=== PATIENT | male | born 1970 | race African-American/Black ===

== ENCOUNTER 2018-02-06 23:50 | Observation (INO) | payer MEDICARE, MEDICAID ==
[~2018-02-06] VITALS: Ht 172.7 cm; Wt 104.3 kg
[2018-02-07] MEDS ORDERED: HYDROcodone-ACET 10/325MG TAB PO ONE (02:15)
[2018-02-07] MEDS ORDERED: ONDANSETRON HCL 4 MG/2 ML VIAL IM ONE (02:30)
[2018-02-07] MEDS: ONDANSETRON HCL 4 MG/2 ML VIAL IV ONE ×2 (02:47→03:00)
[2018-02-07 03:04] LABS: Basophils # (auto) 0 uL; Basophils % (auto) 0.3 % (0.0-2.0); Eosinophils # (auto) 0.1 uL; Eosinophils % (auto) 0.6 % (0.0-7.0); Hemoglobin 7.3 g/dL (13.5-17.5); Lymphocytes # (auto) 1.3 uL; Platelet Count (auto) 166 10^3/uL (140-450)
[2018-02-07 03:05] LABS: Lymphocytes % (auto) 14.7 % (10.0-50.0); Mean Corpuscular Hemoglobin 32.2 pg (28.0-32.0); Mean Corpuscular Hgb Conc. 34.8 g/dL (32.0-36.0); Mean Corpuscular Volume 92.5 fL (80.0-100.0); Monocytes % (auto) 10.9 % (0.0-12.0); Neutrophils # (auto) 6.6 uL; Neutrophils % (auto) 73.5 % (37.0-80.0); Red Blood Cells 2.27 10^6/uL (4.5-5.90); Red Cell Distribution Width 14.8 % (11.8-14.3)
[2018-02-07 03:20] LABS: INR 1.26 (0.9-1.15); Partial Thromboplastin Time 40.9 sec (22.64-33.71); Prothrombin Time 13.8 sec (9.37-12.3)
[2018-02-07 03:24] LABS: BUN/Creatinine Ratio 2.2; Magnesium 1.6 mg/dL (1.6-2.6); Potassium 3.2 mmol/L (3.5-5.1)
[2018-02-07 03:29] LABS: Bilirubin, Total 0.3 mg/dL (0.2-1.0); Total Protein 6.6 g/dL (6.4-8.2)
[2018-02-07 05:53] VITALS: BP 103/40
[2018-02-07] MEDS ORDERED: metroNIDAZOLE 500 MG TAB PO ONE (06:00)
== END 2018-02-07 05:48 | disposition home or self-care (01) | DRG 391 ==
LOC: EDBD 23:50 → ER 02-07 00:03 → OVERFLOW 02-07 01:48 → ER 02-07 05:48
PROVIDERS: ADMIT Emergency Medicine; ATTEND Emergency Medicine
DX: R10.9 Unspecified abdominal pain (principal); N18.6 End stage renal disease; E11.22 Type 2 diabetes mellitus with diabetic chronic kidney disease; I12.0 Hypertensive chronic kidney disease with stage 5 chronic kidney disease or end stage renal disease; K52.9 Noninfective gastroenteritis and colitis, unspecified; G89.4 Chronic pain syndrome; E66.01 Morbid (severe) obesity due to excess calories; E78.5 Hyperlipidemia, unspecified; I73.9 Peripheral vascular disease, unspecified; Z87.11 Personal history of peptic ulcer disease; Z99.2 Dependence on renal dialysis
CPT/HCPCS: 36415; 71045; 74176; 80053; 82140; 82150; 83605; 83690; 83735; 83880; 84484; 85025; 85379; 85610; 85730; 93005; 96372; 99285; G0378; J2405

== ENCOUNTER 2021-09-04 11:45 | Inpatient (IN) | payer MEDICARE, MEDICAID ==
[~2021-09-04] VITALS: Ht 177.8 cm; Wt 78.2 kg
[2021-09-04] MEDS ORDERED: ACETAMINOPHEN 325 MG TAB PO ONE (13:30)
[2021-09-04 14:28] LABS: Basophils # (auto) 0 10 ^3/uL (0-0.2); Basophils % (auto) 0.2 % (0.0-2.0); Eosinophils # (auto) 0 10 ^3/uL (0-0.8); Eosinophils % (auto) 0.2 % (0.0-7.0); Hematocrit 35.1 % (41.0-53.0); Hemoglobin 11.3 g/dL (13.5-17.5); Lymphocytes # (auto) 0.6 10 ^3/uL (0.4-5.4); Lymphocytes % (auto) 3.3 % (10.0-50.0); Mean Corpuscular Hemoglobin 28.9 pg (28.0-32.0); Mean Corpuscular Hgb Conc. 32.3 g/dL (32.0-36.0); Mean Corpuscular Volume 89.4 fL (80.0-100.0); Monocytes # (auto) 1.3 10 ^3/uL (0-1.3); Neutrophils # (auto) 16.5 10 ^3/uL (1.6-8.6); Neutrophils % (auto) 89.3 % (37.0-80.0); Red Blood Cells 3.92 10^6/uL (4.5-5.90); Red Cell Distribution Width 15.3 % (11.8-14.3); White Blood Cell 18.5 10^3/uL (4.4-10.8)
[2021-09-04 14:51] LABS: Chloride 90 mmol/L (98-107); Potassium 4.8 mmol/L (3.5-5.1); Sodium 125 mmol/L (136-145)
[2021-09-04 15:05] LABS: Alanine Aminotransferase 8 U/L (16-61); Alkaline Phosphatase 87 U/L (45-117); Anion Gap 15 (5-15); Aspartate Aminotransferase 11 U/L (15-37); BUN/Creatinine Ratio 3.9; Bilirubin, Total 0.4 mg/dL (0.2-1.0); Blood Urea Nitrogen 71 mg/dL (7-18); Carbon Dioxide 20 mmol/L (21-32); GFR African American 4 mL/min; GFR Non-African American 3 mL/min; Glucose 214 mg/dL (74-106); Lipase 17 U/L (73-393); Magnesium 2.3 mg/dL (1.6-2.6); Total Protein 7.4 g/dL (6.4-8.2)
[2021-09-04 15:15] LABS: Calcium 5.3 mg/dL (8.5-10.1)
[2021-09-04] MEDS ORDERED: NITROGLYCERIN 0.4 MG SL TAB SL PRN (16:45)
[2021-09-04] MEDS ORDERED: VANCOMYCIN PER PHARMACY 0 MG IV SCH (16:45)
[2021-09-04] MEDS ORDERED: ACETAMINOPHEN 500 MG TAB PO PRN (16:45)
[2021-09-04] MEDS ORDERED: DOXYCYCLINE 100 MG TAB/CAP PO ONE (16:45)
[2021-09-04] MEDS ORDERED: cefTRIAXone 1GM/50ML D5W 50 ML IV ONE (16:45)
[2021-09-04] MEDS ORDERED: MORPHINE SULFATE INJECTION 2 MG/ML SYRG IV PRN ×2 (16:45)
[2021-09-04] MEDS ORDERED: VANCOMYCIN 1GM/250ML 250 ML IV ONE (17:00)
[2021-09-04] MEDS ORDERED: DEXTROSE (50%) 50ML SYRG IV PRN (17:15)
[2021-09-04] MEDS: CALCIUM ACETATE 667 MG CAP PO SCH (18:00)
[2021-09-04] MEDS: HYDROcodone-ACET 5/325MG TAB PO PRN (19:11)
[2021-09-04] MEDS: InsuLIN REG 1unit/0.01ml Soln (100units/ml) SC SCH (20:57)
[2021-09-04] MEDS: metroNIDAZOLE 500MG/100ML 100 ML IV SCH (21:00)
[2021-09-04] MEDS: ACCU-CHEK COMFORT CURVE STRIP VI SCH (21:01)
[2021-09-04 22:17] VITALS: BP 118/66
[2021-09-05] MEDS: HYDROcodone-ACET 5/325MG TAB PO PRN ×2 (01:40→12:45)
[2021-09-05] MEDS: ONDANSETRON HCL 4 MG/2 ML VIAL IV PRN ×2 (03:11→12:45)
[2021-09-05 05:00] VITALS: BP 109/58
[2021-09-05] MEDS: InsuLIN REG 1unit/0.01ml Soln (100units/ml) SC SCH ×4 (05:54→22:00)
[2021-09-05] MEDS: metroNIDAZOLE 500MG/100ML 100 ML IV SCH ×3 (05:54→22:14)
[2021-09-05] MEDS: ACCU-CHEK COMFORT CURVE STRIP VI SCH ×4 (05:54→22:14)
[2021-09-05 09:25] VITALS: BP 122/60
[2021-09-05] MEDS: cefTRIAXone 1GM/50ML D5W 50 ML IV SCH (12:05)
[2021-09-05] MEDS: CALCIUM ACETATE 667 MG CAP PO SCH ×3 (12:05→17:33)
[2021-09-05] MEDS ORDERED: VANCOMYCIN 1GM/250ML 250 ML IV ONE (12:15)
[2021-09-05] MEDS ORDERED: CALCIUM GLUC 1,000mg/50ml-NS 50 ML IV ONE ×2 (12:45→13:15)
[2021-09-05 12:59] VITALS: BP 128/56
[2021-09-05] MEDS ORDERED: PANTOPRAZOLE 40 MG/10 ML VIAL INJ IV ONE (14:45)
[2021-09-05 15:08] LABS: Hemoglobin 10.4 g/dL (13.5-17.5); White Blood Cell 17.8 10^3/uL (4.4-10.8)
[2021-09-05 15:10] LABS: Basophils # (auto) 0.2 10 ^3/uL (0-0.2); Eosinophils # (auto) 0.2 10 ^3/uL (0-0.8); Hematocrit 30.9 % (41.0-53.0); Lymphocytes # (auto) 0.6 10 ^3/uL (0.4-5.4); Lymphocytes % (auto) 3.6 % (10.0-50.0); Mean Corpuscular Hemoglobin 29.8 pg (28.0-32.0); Mean Corpuscular Hgb Conc. 33.5 g/dL (32.0-36.0); Mean Corpuscular Volume 89.2 fL (80.0-100.0); Monocytes # (auto) 0.9 10 ^3/uL (0-1.3); Neutrophils # (auto) 15.9 10 ^3/uL (1.6-8.6); Neutrophils % (auto) 89.4 % (37.0-80.0); Red Blood Cells 3.47 10^6/uL (4.5-5.90); Red Cell Distribution Width 15.5 % (11.8-14.3)
[2021-09-05 15:42] LABS: Potassium 4.8 mmol/L (3.5-5.1)
[2021-09-05 15:45] LABS: BUN/Creatinine Ratio 3.8
[2021-09-05 16:01] LABS: Calcium 5.3 mg/dL (8.5-10.1)
[2021-09-05] MEDS: SUCRALFATE 1 GM/10 ML ORAL SUSP PO SCH ×3 (16:04→22:14)
[2021-09-05 17:00] VITALS: BP 152/74
[2021-09-05 22:00] VITALS: BP 139/65
[2021-09-05] MEDS: PANTOPRAZOLE 40 MG/10 ML VIAL INJ IV SCH (22:14)
[2021-09-06] MEDS: HYDROcodone-ACET 5/325MG TAB PO PRN (01:41)
[2021-09-06 05:00] VITALS: BP 141/71
[2021-09-06] MEDS: SUCRALFATE 1 GM/10 ML ORAL SUSP PO SCH ×4 (06:10→22:37)
[2021-09-06] MEDS: metroNIDAZOLE 500MG/100ML 100 ML IV SCH ×3 (06:10→22:37)
[2021-09-06] MEDS: InsuLIN REG 1unit/0.01ml Soln (100units/ml) SC SCH ×4 (06:11→22:38)
[2021-09-06] MEDS: ACCU-CHEK COMFORT CURVE STRIP VI SCH ×4 (06:11→22:37)
[2021-09-06] MEDS ORDERED: SODIUM CHL 0.9% 1000 ML BAG XX ONE (07:00)
[2021-09-06 07:05] LABS: Basophils # (auto) 0 10 ^3/uL (0-0.2); Basophils % (auto) 0.3 % (0.0-2.0); Eosinophils # (auto) 0.2 10 ^3/uL (0-0.8); Eosinophils % (auto) 1.1 % (0.0-7.0); Hematocrit 27.8 % (41.0-53.0); Hemoglobin 9.3 g/dL (13.5-17.5); Lymphocytes # (auto) 0.9 10 ^3/uL (0.4-5.4); Lymphocytes % (auto) 5.6 % (10.0-50.0); Mean Corpuscular Hgb Conc. 33.6 g/dL (32.0-36.0); Mean Corpuscular Volume 89.2 fL (80.0-100.0); Monocytes # (auto) 1.1 10 ^3/uL (0-1.3); Neutrophils # (auto) 13.8 10 ^3/uL (1.6-8.6); Red Blood Cells 3.12 10^6/uL (4.5-5.90); Red Cell Distribution Width 15.2 % (11.8-14.3)
[2021-09-06 07:27] LABS: Magnesium 2.3 mg/dL (1.6-2.6); Potassium 4.7 mmol/L (3.5-5.1)
[2021-09-06 07:34] LABS: Albumin 1.6 g/dL (3.4-5.0); Bilirubin, Total 0.4 mg/dL (0.2-1.0); Total Protein 6.7 g/dL (6.4-8.2)
[2021-09-06 08:32] LABS: Calcium 5.5 mg/dL (8.5-10.1)
[2021-09-06 09:00] VITALS: BP 140/59
[2021-09-06] MEDS ORDERED: PANTOPRAZOLE 40 MG/10 ML VIAL INJ IV SCH (10:00)
[2021-09-06] MEDS ORDERED: CALCIUM GLUC 1,000mg/50ml-NS 50 ML IV ONE (10:00)
[2021-09-06] MEDS: cefTRIAXone 1GM/50ML D5W 50 ML IV SCH (10:16)
[2021-09-06] MEDS: PANTOPRAZOLE 40 MG/10 ML VIAL INJ IV SCH ×2 (10:16→22:37)
[2021-09-06] MEDS: CALCIUM ACETATE 667 MG CAP PO SCH ×3 (10:16→20:05)
[2021-09-06] MEDS: CALCIUM GLUC 1,000mg/50ml-NS 50 ML IV SCH ×2 (11:36→13:29)
[2021-09-06] MEDS: PROMETHAZINE HCL 25 MG/ML 1ML IV PRN (11:39)
[2021-09-06 13:00] VITALS: BP 166/85
[2021-09-06] MEDS ORDERED: GABA-339 PO (15:12)
[2021-09-06] MEDS ORDERED: HYDR-4798 PO (15:12)
[2021-09-06] MEDS ORDERED: LORazepam 2MG/ML-1ML VIAL IV PRN (16:30)
[2021-09-06 17:00] VITALS: BP 147/79
[2021-09-06 22:00] VITALS: BP 127/53
[2021-09-07] MEDS: HYDROcodone-ACET 10/325MG TAB PO PRN ×4 (04:48→23:01)
[2021-09-07 05:00] VITALS: BP 146/73
[2021-09-07] MEDS: metroNIDAZOLE 500MG/100ML 100 ML IV SCH (06:00)
[2021-09-07] MEDS: ACCU-CHEK COMFORT CURVE STRIP VI SCH ×4 (07:00→22:59)
[2021-09-07] MEDS: SUCRALFATE 1 GM/10 ML ORAL SUSP PO SCH ×4 (07:00→22:59)
[2021-09-07] MEDS: InsuLIN REG 1unit/0.01ml Soln (100units/ml) SC SCH ×4 (07:00→23:01)
[2021-09-07 07:12] LABS: Basophils # (auto) 0 10 ^3/uL (0-0.2); Basophils % (auto) 0.2 % (0.0-2.0); Eosinophils # (auto) 0.1 10 ^3/uL (0-0.8); Eosinophils % (auto) 0.9 % (0.0-7.0); Hematocrit 25.8 % (41.0-53.0); Hemoglobin 8.8 g/dL (13.5-17.5); Lymphocytes # (auto) 0.8 10 ^3/uL (0.4-5.4); Lymphocytes % (auto) 6.5 % (10.0-50.0); Mean Corpuscular Hemoglobin 30.6 pg (28.0-32.0); Mean Corpuscular Hgb Conc. 34.1 g/dL (32.0-36.0); Mean Corpuscular Volume 89.6 fL (80.0-100.0); Monocytes # (auto) 1.1 10 ^3/uL (0-1.3); Monocytes % (auto) 8.5 % (0.0-12.0); Neutrophils # (auto) 10.6 10 ^3/uL (1.6-8.6); Neutrophils % (auto) 83.9 % (37.0-80.0); Red Blood Cells 2.88 10^6/uL (4.5-5.90); Red Cell Distribution Width 15.2 % (11.8-14.3); White Blood Cell 12.6 10^3/uL (4.4-10.8)
[2021-09-07 07:26] LABS: Potassium 3.5 mmol/L (3.5-5.1)
[2021-09-07 07:44] LABS: BUN/Creatinine Ratio 3.3
[2021-09-07] MEDS: CALCIUM ACETATE 667 MG CAP PO SCH ×3 (08:22→17:25)
[2021-09-07 09:00] VITALS: BP 105/44
[2021-09-07] MEDS ORDERED: CALCIUM GLUC 1,000mg/50ml-NS 50 ML IV ONE (09:30)
[2021-09-07] MEDS: cefTRIAXone 1GM/50ML D5W 50 ML IV SCH (09:36)
[2021-09-07] MEDS: PANTOPRAZOLE 40 MG/10 ML VIAL INJ IV SCH ×2 (09:36→22:58)
[2021-09-07 12:46] VITALS: BP 160/87
[2021-09-07] MEDS ORDERED: ASPirin 81 mg TAB PO SCH (13:30)
[2021-09-07] MEDS ORDERED: VANCOMYCIN 1GM/250ML 250 ML IV ONE (14:00)
[2021-09-07 16:58] VITALS: BP 148/74
[2021-09-07] MEDS: ASPirin 81 mg TAB PO SCH (18:55)
[2021-09-07 22:00] VITALS: BP 150/76
[2021-09-07] MEDS: ATORVASTATIN 20 MG TAB PO SCH (22:59)
[2021-09-08 05:00] VITALS: BP 114/62
[2021-09-08 05:22] LABS: Basophils # (auto) 0 10 ^3/uL (0-0.2); Basophils % (auto) 0.4 % (0.0-2.0); Eosinophils # (auto) 0.2 10 ^3/uL (0-0.8); Eosinophils % (auto) 1.9 % (0.0-7.0); Hematocrit 27.3 % (41.0-53.0); Lymphocytes # (auto) 1.1 10 ^3/uL (0.4-5.4); Lymphocytes % (auto) 9.9 % (10.0-50.0); Mean Corpuscular Hemoglobin 29.4 pg (28.0-32.0); Mean Corpuscular Hgb Conc. 32.8 g/dL (32.0-36.0); Mean Corpuscular Volume 89.6 fL (80.0-100.0); Monocytes # (auto) 0.8 10 ^3/uL (0-1.3); Neutrophils % (auto) 80.8 % (37.0-80.0); Red Blood Cells 3.04 10^6/uL (4.5-5.90); Red Cell Distribution Width 15.5 % (11.8-14.3); White Blood Cell 11.1 10^3/uL (4.4-10.8)
[2021-09-08 06:00] LABS: Potassium 3.8 mmol/L (3.5-5.1)
[2021-09-08 06:15] LABS: BUN/Creatinine Ratio 3.4; Magnesium 2.5 mg/dL (1.6-2.6)
[2021-09-08 06:28] LABS: Calcium 5.8 mg/dL (8.5-10.1)
[2021-09-08] MEDS: ACCU-CHEK COMFORT CURVE STRIP VI SCH ×4 (06:57→22:28)
[2021-09-08] MEDS: SUCRALFATE 1 GM/10 ML ORAL SUSP PO SCH ×4 (06:57→22:26)
[2021-09-08] MEDS: HYDROcodone-ACET 10/325MG TAB PO PRN ×2 (06:59→17:19)
[2021-09-08] MEDS: InsuLIN REG 1unit/0.01ml Soln (100units/ml) SC SCH ×4 (07:11→22:29)
[2021-09-08 08:52] VITALS: BP 111/62
[2021-09-08] MEDS ORDERED: CALCIUM GLUC 1,000mg/50ml-NS 50 ML IV ONE ×2 (09:00)
[2021-09-08] MEDS ORDERED: CALCIUM GLUC 1,000mg/50ml-NS 100 ML IV ONE (09:00)
[2021-09-08] MEDS: CALCIUM ACETATE 667 MG CAP PO SCH ×3 (09:36→17:18)
[2021-09-08] MEDS: ASPirin 81 mg TAB PO SCH (10:19)
[2021-09-08] MEDS: CALCITRIOL 0.25 MCG CAP PO SCH ×2 (10:19→22:27)
[2021-09-08] MEDS: PANTOPRAZOLE 40 MG/10 ML VIAL INJ IV SCH ×2 (10:19→22:27)
[2021-09-08] MEDS ORDERED: LINEZOLID 600MG/300ML 300 ML IV SCH (11:00)
[2021-09-08 13:00] VITALS: BP 131/89
[2021-09-08 17:00] VITALS: BP 168/103
[2021-09-08] MEDS: LABETALOL HCL 5 MG/ML 4ML SYRINGE IV PRN (17:19)
[2021-09-08] MEDS: CALCIUM GLUC 1,000mg/50ml-NS 50 ML IV SCH ×3 (18:18→19:48)
[2021-09-08 19:10] VITALS: BP 152/77
[2021-09-08 22:00] VITALS: BP 133/65
[2021-09-08] MEDS: ATORVASTATIN 20 MG TAB PO SCH (22:27)
[2021-09-08] MEDS: HYDROmorphone HCL 2 MG/ML VL IV PRN (22:28)
[2021-09-08] MEDS: LINEZOLID 600MG/300ML 300 ML IV SCH (22:29)
[2021-09-09 05:00] VITALS: BP 149/63
[2021-09-09] MEDS: InsuLIN REG 1unit/0.01ml Soln (100units/ml) SC SCH ×4 (07:00→21:57)
[2021-09-09] MEDS: SUCRALFATE 1 GM/10 ML ORAL SUSP PO SCH ×4 (07:00→21:16)
[2021-09-09] MEDS ORDERED: SODIUM CHL 0.9% 1000 ML BAG XX ONE (07:00)
[2021-09-09] MEDS: ACCU-CHEK COMFORT CURVE STRIP VI SCH ×4 (07:04→21:59)
[2021-09-09 07:59] LABS: Basophils # (auto) 0.1 10 ^3/uL (0-0.2); Basophils % (auto) 0.7 % (0.0-2.0); Eosinophils # (auto) 0.1 10 ^3/uL (0-0.8); Eosinophils % (auto) 1.3 % (0.0-7.0); Hematocrit 28.6 % (41.0-53.0); Hemoglobin 9.5 g/dL (13.5-17.5); Lymphocytes # (auto) 1.1 10 ^3/uL (0.4-5.4); Lymphocytes % (auto) 11.3 % (10.0-50.0); Mean Corpuscular Hgb Conc. 33.4 g/dL (32.0-36.0); Mean Corpuscular Volume 89.9 fL (80.0-100.0); Monocytes # (auto) 0.8 10 ^3/uL (0-1.3); Monocytes % (auto) 8.2 % (0.0-12.0); Neutrophils # (auto) 7.9 10 ^3/uL (1.6-8.6); Neutrophils % (auto) 78.5 % (37.0-80.0); Red Blood Cells 3.18 10^6/uL (4.5-5.90); Red Cell Distribution Width 15.7 % (11.8-14.3); White Blood Cell 10.1 10^3/uL (4.4-10.8)
[2021-09-09 08:19] LABS: Calcium 6.6 mg/dL (8.5-10.1); Potassium 3.7 mmol/L (3.5-5.1)
[2021-09-09 08:22] LABS: BUN/Creatinine Ratio 3.6
[2021-09-09 09:00] VITALS: BP 157/86
[2021-09-09 10:26] LABS: INR 1.37 (0.9-1.15); Partial Thromboplastin Time 46.4 sec (23.6-33.0)
[2021-09-09] MEDS: HYDROmorphone HCL 2 MG/ML VL IV PRN ×2 (10:53→18:39)
[2021-09-09] MEDS: PROMETHAZINE HCL 25 MG/ML 1ML IV PRN ×2 (10:53→18:39)
[2021-09-09] MEDS: CALCITRIOL 0.25 MCG CAP PO SCH ×2 (11:17→21:16)
[2021-09-09] MEDS: CALCIUM ACETATE 667 MG CAP PO SCH ×3 (11:17→18:39)
[2021-09-09] MEDS: PANTOPRAZOLE 40 MG/10 ML VIAL INJ IV SCH ×2 (11:17→21:16)
[2021-09-09] MEDS: LINEZOLID 600MG/300ML 300 ML IV SCH ×2 (11:17→21:17)
[2021-09-09] MEDS: ASPirin 81 mg TAB PO SCH (11:19)
[2021-09-09 13:00] VITALS: BP 161/88
[2021-09-09 16:51] VITALS: BP 114/68
[2021-09-09] MEDS ORDERED: EPOETIN ALFA-EPBX 10,000 UNIT/1ML VIAL SC ONE (21:00)
[2021-09-09] MEDS: ATORVASTATIN 20 MG TAB PO SCH (21:16)
[2021-09-09] MEDS: HYDROcodone-ACET 10/325MG TAB PO PRN (21:16)
[2021-09-09 22:00] VITALS: BP 119/74
[2021-09-10] VITALS (7 sets, daily range): BP systolic 132–162; BP diastolic 68–98
[2021-09-10] MEDS: PROMETHAZINE HCL 25 MG/ML 1ML IV PRN ×5 (00:29→22:30)
[2021-09-10] MEDS: HYDROmorphone HCL 2 MG/ML VL IV PRN ×4 (00:29→21:12)
[2021-09-10] MEDS: SUCRALFATE 1 GM/10 ML ORAL SUSP PO SCH ×4 (06:01→21:12)
[2021-09-10] MEDS: InsuLIN REG 1unit/0.01ml Soln (100units/ml) SC SCH ×4 (06:02→22:00)
[2021-09-10] MEDS: ACCU-CHEK COMFORT CURVE STRIP VI SCH ×4 (06:02→22:29)
[2021-09-10] MEDS: LABETALOL HCL 5 MG/ML 4ML SYRINGE IV PRN ×2 (06:24→22:20)
[2021-09-10 07:01] LABS: BUN/Creatinine Ratio 3.2; Potassium 4.3 mmol/L (3.5-5.1)
[2021-09-10 07:02] LABS: Basophils # (auto) 0 10 ^3/uL (0-0.2); Basophils % (auto) 0.6 % (0.0-2.0); Eosinophils # (auto) 0.2 10 ^3/uL (0-0.8); Hematocrit 29.1 % (41.0-53.0); Hemoglobin 9.7 g/dL (13.5-17.5); Lymphocytes # (auto) 1.1 10 ^3/uL (0.4-5.4); Lymphocytes % (auto) 14.1 % (10.0-50.0); Mean Corpuscular Hemoglobin 30.4 pg (28.0-32.0); Mean Corpuscular Hgb Conc. 33.4 g/dL (32.0-36.0); Mean Corpuscular Volume 91.1 fL (80.0-100.0); Monocytes # (auto) 0.7 10 ^3/uL (0-1.3); Monocytes % (auto) 8.7 % (0.0-12.0); Neutrophils # (auto) 5.8 10 ^3/uL (1.6-8.6); Neutrophils % (auto) 74.6 % (37.0-80.0); Nucleated Red Blood Cells % 0.1 %; Red Blood Cells 3.19 10^6/uL (4.5-5.90); Red Cell Distribution Width 15.8 % (11.8-14.3); White Blood Cell 7.8 10^3/uL (4.4-10.8)
[2021-09-10] MEDS: CALCIUM ACETATE 667 MG CAP PO SCH ×3 (08:00→18:00)
[2021-09-10] MEDS: LINEZOLID 600MG/300ML 300 ML IV SCH (10:39)
[2021-09-10] MEDS: PANTOPRAZOLE 40 MG/10 ML VIAL INJ IV SCH ×2 (10:39→21:12)
[2021-09-10] MEDS: HYDROcodone-ACET 10/325MG TAB PO PRN (10:40)
[2021-09-10] MEDS: ASPirin 81 mg TAB PO SCH (10:40)
[2021-09-10] MEDS: CALCITRIOL 0.25 MCG CAP PO SCH ×2 (11:22→21:13)
[2021-09-10] MEDS ORDERED: VANCOMYCIN PER PHARMACY 0 MG IV SCH (12:30)
[2021-09-10] MEDS ORDERED: DAPTOmycin 500 MG in SODIUM CHL 0.9% 50 ML IV SCH (15:00)
[2021-09-10] MEDS: ATORVASTATIN 20 MG TAB PO SCH (21:12)
[2021-09-11] MEDS: HYDROmorphone HCL 2 MG/ML VL IV PRN ×3 (02:29→12:02)
[2021-09-11] MEDS: PROMETHAZINE HCL 25 MG/ML 1ML IV PRN ×2 (02:29→07:53)
[2021-09-11] MEDS: SUCRALFATE 1 GM/10 ML ORAL SUSP PO SCH ×3 (05:38→17:00)
[2021-09-11] MEDS: InsuLIN REG 1unit/0.01ml Soln (100units/ml) SC SCH ×3 (06:24→17:30)
[2021-09-11] MEDS: ACCU-CHEK COMFORT CURVE STRIP VI SCH ×3 (06:30→17:30)
[2021-09-11] MEDS: CALCIUM ACETATE 667 MG CAP PO SCH ×3 (07:55→17:31)
[2021-09-11 09:00] VITALS: BP 168/90
[2021-09-11] MEDS: PANTOPRAZOLE 40 MG/10 ML VIAL INJ IV SCH (09:57)
[2021-09-11] MEDS: CALCITRIOL 0.25 MCG CAP PO SCH (09:58)
[2021-09-11] MEDS: ASPirin 81 mg TAB PO SCH (09:58)
[2021-09-11] MEDS ORDERED: PANT40TA2 PO (10:24)
[2021-09-11] MEDS ORDERED: ATOR10TA PO (10:24)
[2021-09-11] MEDS ORDERED: ASPI-378 PO (10:24)
[2021-09-11] MEDS ORDERED: SUCR1TAB22 PO (10:28)
[2021-09-11] MEDS ORDERED: OMEP-260 PO (10:41)
[2021-09-11] MEDS ORDERED: CALC667C PO (10:41)
[2021-09-11] MEDS ORDERED: AMLO-496 PO (10:41)
[2021-09-11] MEDS ORDERED: ATOR10TA52 PO (10:41)
[2021-09-11 13:00] VITALS: BP 153/86
[2021-09-11] MEDS ORDERED: SODIUM CHL 0.9% 1000 ML BAG XX ONE (16:00)
[2021-09-11 17:00] VITALS: BP 161/67
[2021-09-11] MEDS ORDERED: EPOETIN ALFA-EPBX 10,000 UNIT/1ML VIAL SC ONE (21:00)
[2021-09-11] MEDS ORDERED: SODIUM CHLOR 0.9% PF (SALINE LOCK) 10ML VIAL/SYR IV SCH (22:00)
== END 2021-09-11 19:23 | disposition home health service (06) | DRG 871 ==
LOC: ER 11:45 → EDBD 11:45 → TELE 16:40 → TELE-CENTR 19:59
PROVIDERS: ADMIT Nurse Practitioner Acute Care; ATTEND Internal Medicine
PROC: 05HC33Z Insertion of Infusion Device into Left Basilic Vein, Percutaneous Approach (ICD-10-PCS; 2021-09-04)
PROC: B54NZZA Ultrasonography of Left Upper Extremity Veins, Guidance (ICD-10-PCS; 2021-09-04)
PROC: 5A1D70Z Performance of Urinary Filtration, Intermittent, Less than 6 Hours Per Day (ICD-10-PCS; principal; 2021-09-06)
PROC: 5A1D70Z Performance of Urinary Filtration, Intermittent, Less than 6 Hours Per Day (ICD-10-PCS; 2021-09-09)
PROC: 5A1D70Z Performance of Urinary Filtration, Intermittent, Less than 6 Hours Per Day (ICD-10-PCS; 2021-09-11)
PROC: 05HC33Z Insertion of Infusion Device into Left Basilic Vein, Percutaneous Approach (ICD-10-PCS; 2021-09-11)
PROC: B54NZZA Ultrasonography of Left Upper Extremity Veins, Guidance (ICD-10-PCS; 2021-09-11)
DX: A41.02 Sepsis due to Methicillin resistant Staphylococcus aureus (principal); N18.6 End stage renal disease; E87.1 Hypo-osmolality and hyponatremia; I13.2 Hypertensive heart and chronic kidney disease with heart failure and with stage 5 chronic kidney disease, or end stage renal disease; I50.30 Unspecified diastolic (congestive) heart failure; M86.172 Other acute osteomyelitis, left ankle and foot; E83.51 Hypocalcemia; R55 Syncope and collapse; K62.89 Other specified diseases of anus and rectum; E11.621 Type 2 diabetes mellitus with foot ulcer; D63.1 Anemia in chronic kidney disease; E11.22 Type 2 diabetes mellitus with diabetic chronic kidney disease; E11.40 Type 2 diabetes mellitus with diabetic neuropathy, unspecified; E11.51 Type 2 diabetes mellitus with diabetic peripheral angiopathy without gangrene; E86.0 Dehydration; E83.39 Other disorders of phosphorus metabolism; E11.69 Type 2 diabetes mellitus with other specified complication; E78.5 Hyperlipidemia, unspecified; G89.29 Other chronic pain; H54.8 Legal blindness, as defined in USA; L97.529 Non-pressure chronic ulcer of other part of left foot with unspecified severity; Z53.20 Procedure and treatment not carried out because of patient's decision for unspecified reasons; R19.7 Diarrhea, unspecified; Z20.822 Contact with and (suspected) exposure to COVID-19; Z79.4 Long term (current) use of insulin; Z82.49 Family history of ischemic heart disease and other diseases of the circulatory system; Z83.3 Family history of diabetes mellitus; Z86.73 Personal history of transient ischemic attack (TIA), and cerebral infarction without residual deficits; Z87.11 Personal history of peptic ulcer disease; Z91.19 Patient's noncompliance with other medical treatment and regimen; Z99.2 Dependence on renal dialysis; Z88.0 Allergy status to penicillin; Z88.8 Allergy status to other drugs, medicaments and biological substances
CPT/HCPCS: 36415; 36569; 70450; 70551; 71045; 72125; 73700; 73718; 74176; 80048; 80053; 80061; 80202; 82010; 82306; 82962; 83036; 83605; 83690; 83735; 83880; 84100; 84443; 84484; 85025; 85610; 85730; 87040; 87045; 87077; 87081; 87147; 87186; 87340; 87426; 87427; 87493; 90935; 93005; 93306; 93886; 93925; 95819; 96365; 96367; 97110; 97163; 97530; C9113; G0378; J0696; J1815; J2405; J3490

== ENCOUNTER 2022-03-28 14:35 | Inpatient (IN) | payer MEDICARE, MEDICAID ==
[~2022-03-28] VITALS: Ht 177.8 cm; Wt 89.5 kg
[~2022-03-28 14:35] MED LIST: AMLO-496 PO; ASPI-378 PO; ATOR10TA PO; CALC667C PO; GABA-339 PO; HYDR-4798 PO; PANT40TA2 PO; SUCR1TAB22 PO
[2022-03-28 16:09] LABS: Basophils # (auto) 0 10 ^3/uL (0-0.2); Eosinophils # (auto) 0.1 10 ^3/uL (0-0.8); Eosinophils % (auto) 1.1 % (0.0-7.0); Hematocrit 31.1 % (41.0-53.0); Hemoglobin 10.2 g/dL (13.5-17.5); Lymphocytes # (auto) 0.6 10 ^3/uL (0.4-5.4); Lymphocytes % (auto) 12.9 % (10.0-50.0); Mean Corpuscular Hemoglobin 30.2 pg (28.0-32.0); Mean Corpuscular Hgb Conc. 32.8 g/dL (32.0-36.0); Mean Corpuscular Volume 92.1 fL (80.0-100.0); Monocytes # (auto) 0.5 10 ^3/uL (0-1.3); Monocytes % (auto) 10.4 % (0.0-12.0); Neutrophils # (auto) 3.6 10 ^3/uL (1.6-8.6); Neutrophils % (auto) 74.6 % (37.0-80.0); Nucleated Red Blood Cells % 0.3 %; Red Blood Cells 3.38 10^6/uL (4.5-5.90); Red Cell Distribution Width 18.4 % (11.8-14.3); White Blood Cell 4.8 10^3/uL (4.4-10.8)
[2022-03-28 16:19] LABS: Calcium 6.3 mg/dL (8.5-10.1); Magnesium 2.5 mg/dL (1.6-2.6)
[2022-03-28 16:20] LABS: BUN/Creatinine Ratio 5.2
[2022-03-28 16:22] LABS: Bilirubin, Total 0.5 mg/dL (0.2-1.0); Total Protein 8.3 g/dL (6.4-8.2)
[2022-03-28 16:27] LABS: Potassium 7.6 mmol/L (3.5-5.1)
[2022-03-28] MEDS ORDERED: DEXTROSE (50%) 50ML SYRG IV ONE ×4 (16:45→22:15)
[2022-03-28] MEDS ORDERED: InsuLIN REG 1unit/0.01ml Soln (100units/ml) IV ONE (16:45)
[2022-03-28] MEDS ORDERED: SODIUM ZIRCONIUM CYCL 10 GM PAK PO ONE (16:45)
[2022-03-28] MEDS ORDERED: SODIUM BICARBONATE 8.4 % INJ 50ML VIAL IV ONE (16:45)
[2022-03-28] MEDS ORDERED: CALCIUM GLUC 1,000mg/50ml-NS 50 ML IV ONE (16:45)
[2022-03-28 16:52] LABS: INR 1.4 (0.9-1.15); Partial Thromboplastin Time 33.6 sec (23.6-33.0)
[2022-03-28 18:17] LABS: Cholesterol 65 mg/dL (< 200)
[2022-03-28 18:20] LABS: HDL Cholesterol 32 mg/dL (40-59); LDL Cholesterol 24 mg/dL (< 100); Triglycerides 71 mg/dL (< 150)
[2022-03-28] MEDS ORDERED: DEXTROSE 50% SYRINGE 50 ML IV ONE ×2 (18:47→22:20)
[2022-03-28] MEDS ORDERED: ACCU-CHEK COMFORT CURVE STRIP VI ONE ×2 (19:00→19:15)
[2022-03-28 20:27] LABS: BUN/Creatinine Ratio 5.2; Calcium 6.5 mg/dL (8.5-10.1)
[2022-03-28 20:35] LABS: Potassium 6.4 mmol/L (3.5-5.1)
[2022-03-28] MEDS ORDERED: SODIUM CHL 0.9% 1000 ML BAG XX ONE (20:45)
[2022-03-28] MEDS ORDERED: EPOETIN ALFA-EPBX 10,000 UNIT/1ML VIAL SC ONE (21:00)
[2022-03-28] MEDS: SODIUM ZIRCONIUM CYCL 10 GM PAK PO SCH (22:00)
[2022-03-28] MEDS ORDERED: DEXTROSE 10% 1,000 ML IV ONE (22:15)
[2022-03-29] VITALS (7 sets, daily range): BP systolic 111–153; BP diastolic 42–96
[2022-03-29] MEDS ORDERED: DEXTROSE (50%) 50ML SYRG IV PRN (02:00)
[2022-03-29] MEDS ORDERED: FENO145T27 PO (03:04)
[2022-03-29] MEDS ORDERED: MELA3TAB27 PO (03:04)
[2022-03-29] MEDS ORDERED: ALBU108A5 IN (03:04)
[2022-03-29] MEDS ORDERED: OMEP20TA PO (03:04)
[2022-03-29] MEDS ORDERED: POLY33504 PO (03:04)
[2022-03-29] MEDS ORDERED: PAR20T PO (03:04)
[2022-03-29] MEDS ORDERED: INSLISPI SC (03:04)
[2022-03-29] MEDS ORDERED: CARV6.2551 PO (03:04)
[2022-03-29] MEDS ORDERED: SODI650T PO (03:04)
[2022-03-29] MEDS ORDERED: ASCO-22 PO (03:04)
[2022-03-29] MEDS ORDERED: OXY5T PO (03:04)
[2022-03-29] MEDS ORDERED: ZINC220C8 PO (03:04)
[2022-03-29] MEDS: InsuLIN REG 1unit/0.01ml Soln (100units/ml) SC SCH ×5 (04:00→20:00)
[2022-03-29] MEDS: ACCU-CHEK COMFORT CURVE STRIP VI SCH ×5 (04:22→22:09)
[2022-03-29] MEDS: SODIUM ZIRCONIUM CYCL 10 GM PAK PO SCH ×2 (06:20→14:00)
[2022-03-29 08:07] LABS: Basophils # (auto) 0.1 10 ^3/uL (0-0.2); Basophils % (auto) 1.3 % (0.0-2.0); Eosinophils # (auto) 0.1 10 ^3/uL (0-0.8); Eosinophils % (auto) 2.3 % (0.0-7.0); Hematocrit 30.3 % (41.0-53.0); Hemoglobin 10.1 g/dL (13.5-17.5); Lymphocytes # (auto) 0.4 10 ^3/uL (0.4-5.4); Lymphocytes % (auto) 10.5 % (10.0-50.0); Mean Corpuscular Hemoglobin 30.3 pg (28.0-32.0); Mean Corpuscular Hgb Conc. 33.3 g/dL (32.0-36.0); Mean Corpuscular Volume 91.2 fL (80.0-100.0); Monocytes # (auto) 0.4 10 ^3/uL (0-1.3); Monocytes % (auto) 9.1 % (0.0-12.0); Neutrophils # (auto) 3.1 10 ^3/uL (1.6-8.6); Neutrophils % (auto) 76.8 % (37.0-80.0); Nucleated Red Blood Cells % 0.3 %; Red Blood Cells 3.33 10^6/uL (4.5-5.90); Red Cell Distribution Width 18.3 % (11.8-14.3)
[2022-03-29 08:27] LABS: Potassium 4.5 mmol/L (3.5-5.1)
[2022-03-29 08:34] LABS: Albumin 2.6 g/dL (3.4-5.0); BUN/Creatinine Ratio 4.8; Bilirubin, Total 0.5 mg/dL (0.2-1.0); Calcium 6.5 mg/dL (8.5-10.1); Total Protein 7.5 g/dL (6.4-8.2)
[2022-03-29] MEDS ORDERED: SODIUM BICARBONATE 650 MG TAB PO ONE (11:00)
[2022-03-29] MEDS: ONDANSETRON HCL 4 MG/2 ML VIAL IV PRN ×2 (11:51→17:45)
[2022-03-29] MEDS: HYDROcodone-ACET 10/325MG TAB PO SCH ×2 (12:08→17:45)
[2022-03-29] MEDS: CALCIUM ACETATE 667 MG CAP PO SCH ×2 (12:08→17:45)
[2022-03-29] MEDS: GABAPENTIN 300 MG CAP PO SCH ×3 (12:08→21:56)
[2022-03-29] MEDS ORDERED: LIDOCAINE 5% TOPICAL PATCH TOP ONE (20:00)
[2022-03-29] MEDS: diphenhdrAMINE HCL 50 MG/1 ML VL IV PRN (20:49)
[2022-03-29] MEDS: ATORVASTATIN 20 MG TAB PO SCH (21:56)
[2022-03-29] MEDS: MUPIROCIN 2% OINT 15gm or 22gm EACHNOSTRI SCH (22:10)
[2022-03-30] VITALS (7 sets, daily range): BP systolic 100–137; BP diastolic 65–78
[2022-03-30] MEDS: HYDROcodone-ACET 10/325MG TAB PO SCH ×5 (00:18→21:14)
[2022-03-30] MEDS: ACCU-CHEK COMFORT CURVE STRIP VI SCH ×7 (00:19→23:45)
[2022-03-30] MEDS: InsuLIN REG 1unit/0.01ml Soln (100units/ml) SC SCH ×7 (03:50→23:45)
[2022-03-30] MEDS: GABAPENTIN 300 MG CAP PO SCH ×4 (06:06→21:14)
[2022-03-30 07:44] LABS: BUN/Creatinine Ratio 4.5; Bilirubin, Total 0.8 mg/dL (0.2-1.0); Calcium 6.3 mg/dL (8.5-10.1); Total Protein 8.5 g/dL (6.4-8.2)
[2022-03-30 08:04] LABS: Potassium 6.1 mmol/L (3.5-5.1)
[2022-03-30 08:09] LABS: Basophils # (auto) 0.1 10 ^3/uL (0-0.2); Basophils % (auto) 1.4 % (0.0-2.0); Eosinophils # (auto) 0.2 10 ^3/uL (0-0.8); Eosinophils % (auto) 3.5 % (0.0-7.0); Hematocrit 28.8 % (41.0-53.0); Hemoglobin 9.7 g/dL (13.5-17.5); Lymphocytes # (auto) 0.6 10 ^3/uL (0.4-5.4); Lymphocytes % (auto) 12.4 % (10.0-50.0); Mean Corpuscular Hgb Conc. 33.5 g/dL (32.0-36.0); Mean Corpuscular Volume 92.5 fL (80.0-100.0); Monocytes # (auto) 0.6 10 ^3/uL (0-1.3); Monocytes % (auto) 12.6 % (0.0-12.0); Neutrophils # (auto) 3.2 10 ^3/uL (1.6-8.6); Neutrophils % (auto) 70.1 % (37.0-80.0); Nucleated Red Blood Cells % 0.2 %; Red Blood Cells 3.12 10^6/uL (4.5-5.90); Red Cell Distribution Width 18.2 % (11.8-14.3); White Blood Cell 4.6 10^3/uL (4.4-10.8)
[2022-03-30] MEDS: ATORVASTATIN 20 MG TAB PO SCH (09:30)
[2022-03-30] MEDS: PANTOPRAZOLE 40 MG TAB PO SCH (09:30)
[2022-03-30] MEDS: SODIUM ZIRCONIUM CYCL 10 GM PAK PO SCH ×3 (09:30→21:19)
[2022-03-30] MEDS: PARoxetine 20 MG TAB PO SCH (09:30)
[2022-03-30] MEDS: CALCIUM ACETATE 667 MG CAP PO SCH ×3 (09:31→18:10)
[2022-03-30] MEDS: ASPirin 81 mg TAB PO SCH (09:31)
[2022-03-30] MEDS: amLODIPine BESYLATE 5 MG TAB PO SCH (09:31)
[2022-03-30] MEDS: CARVEDILOL 3.125 MG TAB PO SCH (09:32)
[2022-03-30] MEDS ORDERED: SODIUM ZIRCONIUM CYCL 10 GM PAK PO SCH (10:00)
[2022-03-30] MEDS: MUPIROCIN 2% OINT 15gm or 22gm EACHNOSTRI SCH ×2 (10:00→23:22)
[2022-03-30] MEDS ORDERED: DEXTROSE (50%) 50ML SYRG IV PRN (11:00)
[2022-03-30] MEDS: ONDANSETRON HCL 4 MG/2 ML VIAL IV PRN (12:09)
[2022-03-30] MEDS: diphenhdrAMINE HCL 50 MG/1 ML VL IV PRN (13:14)
[2022-03-30] MEDS: LIDOCAINE 5% TOPICAL PATCH TOP SCH (13:57)
[2022-03-31] MEDS: ACCU-CHEK COMFORT CURVE STRIP VI SCH ×4 (03:32→16:00)
[2022-03-31] MEDS: InsuLIN REG 1unit/0.01ml Soln (100units/ml) SC SCH ×4 (03:33→16:00)
[2022-03-31 05:00] VITALS: BP 105/71
[2022-03-31] MEDS: GABAPENTIN 300 MG CAP PO SCH ×2 (05:55→12:00)
[2022-03-31] MEDS: HYDROcodone-ACET 10/325MG TAB PO SCH ×2 (05:56→12:00)
[2022-03-31] MEDS ORDERED: SODIUM CHL 0.9% 1000 ML BAG XX ONE (07:00)
[2022-03-31 07:19] LABS: Basophils # (auto) 0 10 ^3/uL (0-0.2); Basophils % (auto) 0.7 % (0.0-2.0); Eosinophils # (auto) 0.2 10 ^3/uL (0-0.8); Eosinophils % (auto) 4.1 % (0.0-7.0); Hematocrit 29.4 % (41.0-53.0); Hemoglobin 9.5 g/dL (13.5-17.5); Lymphocytes # (auto) 0.6 10 ^3/uL (0.4-5.4); Lymphocytes % (auto) 13.9 % (10.0-50.0); Mean Corpuscular Hemoglobin 30.5 pg (28.0-32.0); Mean Corpuscular Hgb Conc. 32.2 g/dL (32.0-36.0); Mean Corpuscular Volume 94.5 fL (80.0-100.0); Monocytes # (auto) 0.5 10 ^3/uL (0-1.3); Monocytes % (auto) 13.1 % (0.0-12.0); Neutrophils # (auto) 2.8 10 ^3/uL (1.6-8.6); Neutrophils % (auto) 68.2 % (37.0-80.0); Nucleated Red Blood Cells % 0.3 %; Red Blood Cells 3.11 10^6/uL (4.5-5.90); Red Cell Distribution Width 18.6 % (11.8-14.3)
[2022-03-31 07:32] LABS: Albumin 2.9 g/dL (3.4-5.0); BUN/Creatinine Ratio 4.6; Bilirubin, Total 0.5 mg/dL (0.2-1.0); Calcium 6.1 mg/dL (8.5-10.1); Total Protein 8.4 g/dL (6.4-8.2)
[2022-03-31 07:46] LABS: Potassium 6.2 mmol/L (3.5-5.1)
[2022-03-31] MEDS: amLODIPine BESYLATE 5 MG TAB PO SCH (08:39)
[2022-03-31] MEDS: PARoxetine 20 MG TAB PO SCH (08:41)
[2022-03-31] MEDS: CARVEDILOL 3.125 MG TAB PO SCH (08:41)
[2022-03-31] MEDS: PANTOPRAZOLE 40 MG TAB PO SCH (08:42)
[2022-03-31] MEDS: ATORVASTATIN 20 MG TAB PO SCH (08:42)
[2022-03-31] MEDS: CALCIUM ACETATE 667 MG CAP PO SCH ×2 (08:42→12:00)
[2022-03-31] MEDS: ASPirin 81 mg TAB PO SCH (08:42)
[2022-03-31] MEDS: LIDOCAINE 5% TOPICAL PATCH TOP SCH (08:43)
[2022-03-31] MEDS: diphenhdrAMINE HCL 50 MG/1 ML VL IV PRN (08:43)
[2022-03-31] MEDS: MUPIROCIN 2% OINT 15gm or 22gm EACHNOSTRI SCH (08:43)
[2022-03-31 09:00] VITALS: BP 100/56
[2022-03-31 12:20] VITALS: BP 105/73
[2022-03-31] MEDS ORDERED: ALBUMIN 25% 100 ML IV SCH (14:00)
[2022-03-31] MEDS ORDERED: LIDOCAINE 5% TOPICAL PATCH TOP SCH (14:00)
[2022-03-31 17:00] VITALS: BP 116/69
[2022-03-31] MEDS ORDERED: EPOETIN ALFA-EPBX 10,000 UNIT/1ML VIAL SC ONE (21:00)
[2022-03-31] MEDS ORDERED: MUPIROCIN 2% OINT 15gm or 22gm EACHNOSTRI SCH (22:00)
== END 2022-03-31 20:21 | disposition home or self-care (01) | DRG 640 ==
LOC: EDSEX 14:35 → ER 14:35 → EDBD 14:35 → TELE-WESTW 17:25
PROVIDERS: ADMIT Registered Nurse; ATTEND Family Medicine
PROC: 5A1D70Z Performance of Urinary Filtration, Intermittent, Less than 6 Hours Per Day (ICD-10-PCS; principal; 2022-03-28)
PROC: 5A1D70Z Performance of Urinary Filtration, Intermittent, Less than 6 Hours Per Day (ICD-10-PCS; 2022-03-31)
DX: E87.5 Hyperkalemia (principal); G93.41 Metabolic encephalopathy; N18.6 End stage renal disease; I50.33 Acute on chronic diastolic (congestive) heart failure; E41 Nutritional marasmus; G92.9 Unspecified toxic encephalopathy; I13.2 Hypertensive heart and chronic kidney disease with heart failure and with stage 5 chronic kidney disease, or end stage renal disease; E44.0 Moderate protein-calorie malnutrition; D63.1 Anemia in chronic kidney disease; E88.09 Other disorders of plasma-protein metabolism, not elsewhere classified; E11.51 Type 2 diabetes mellitus with diabetic peripheral angiopathy without gangrene; K27.9 Peptic ulcer, site unspecified, unspecified as acute or chronic, without hemorrhage or perforation; E11.22 Type 2 diabetes mellitus with diabetic chronic kidney disease; E11.40 Type 2 diabetes mellitus with diabetic neuropathy, unspecified; E78.5 Hyperlipidemia, unspecified; F32.A Depression, unspecified; K21.9 Gastro-esophageal reflux disease without esophagitis; Z20.822 Contact with and (suspected) exposure to COVID-19; Z87.11 Personal history of peptic ulcer disease; Z89.512 Acquired absence of left leg below knee; Z99.2 Dependence on renal dialysis; Z79.84 Long term (current) use of oral hypoglycemic drugs
CPT/HCPCS: 36415; 70450; 71045; 80048; 80053; 80061; 82962; 83036; 83735; 83880; 84484; 85025; 85610; 85730; 87081; 90935; 93005; 93306; 93886; 96365; 96375; 99291; G0378; J1815; J2405; P9047

== ENCOUNTER 2024-06-14 23:24 | Inpatient (IN) | payer MEDICARE, MEDICAID ==
[~2024-06-14] VITALS: Ht 172.7 cm; Wt 85.4 kg
[~2024-06-14 23:24] MED LIST changes: +ALBU108A5 IN; -AMLO-496 PO; +AMLO1TAB23 PO; +ASCO500T16 PO; +CARV6.2551 PO; +FENO145T27 PO; +INSLISPI SC; +MELA3TAB27 PO; +OMEP20TA PO; +OXY5T PO; +PAR20T PO; +POLY33504 PO; +SODI650T PO; -SUCR1TAB22 PO; +SUCR1TAB31 PO; +ZINC220C8 PO
[2024-06-15] VITALS (8 sets, daily range): BP systolic 84–144; BP diastolic 48–80; PULSE 72–91; RESP 12–18; TEMP 97.5–98.7; O2SAT 93–100
[2024-06-15] MEDS ORDERED: NOREPINEPHRINE 8 MG/250ML KIT 250 ML IV SCH (02:45)
[2024-06-15] MEDS ORDERED: SODIUM CHLORIDE 0.9% 1,000 ML IV ONE (02:45)
[2024-06-15] MEDS: SODIUM CHLORIDE 0.9% 1,000 ML IV ONE (03:04)
[2024-06-15 03:14] LABS: Basophils # (auto) 0 10 ^3/uL (0-0.2); Basophils % (auto) 0.8 % (0.0-2.0); Eosinophils # (auto) 0.1 10 ^3/uL (0-0.8); Eosinophils % (auto) 1.5 % (0.0-7.0); Hematocrit 44.2 % (41.0-53.0); Hemoglobin 14.9 g/dL (13.5-17.5); Lymphocytes # (auto) 1.1 10 ^3/uL (0.4-5.4); Lymphocytes % (auto) 26.4 % (10.0-50.0); Mean Corpuscular Hemoglobin 31.6 pg (28.0-32.0); Mean Corpuscular Hgb Conc. 33.6 g/dL (32.0-36.0); Monocytes # (auto) 0.6 10 ^3/uL (0-1.3); Monocytes % (auto) 14.7 % (0.0-12.0); Neutrophils # (auto) 2.4 10 ^3/uL (1.6-8.6); Neutrophils % (auto) 56.6 % (37.0-80.0); Nucleated Red Blood Cells % 0.3 %; Platelet Count (auto) 110 10^3/uL (140-450); White Blood Cell 4.2 10^3/uL (4.4-10.8)
[2024-06-15] MEDS: cefTRIAXone 1GM/50ML D5W 50 ML IV ONE (03:16)
[2024-06-15] MEDS: ALBUMIN 5% 50 ML IV ONE (03:16)
[2024-06-15 03:25] LABS: Red Cell Distribution Width 20.9 % (11.8-14.3)
[2024-06-15 03:29] LABS: Alanine Aminotransferase 13 U/L (7-40); Albumin 3.9 g/dL (3.2-4.8); Alkaline Phosphatase 118 U/L (46-116); Anion Gap 15 (5-15); Aspartate Aminotransferase 11 U/L (13-40); BUN/Creatinine Ratio 2.3 (10.0-20.0); Blood Urea Nitrogen 32 mg/dL (9-23); Calcium 6.3 mg/dL (8.7-10.4); Carbon Dioxide 18 mmol/L (20-30); Chloride 91 mmol/L (98-107); Glucose 187 mg/dL (74-106); Potassium 4.4 mmol/L (3.5-5.1); Sodium 124 mmol/L (136-145)
[2024-06-15 03:30] LABS: Bilirubin, Total 0.2 mg/dL (0.2-1.0); Total Protein 7.9 g/dL (5.7-8.2)
[2024-06-15] MEDS: PHENYLEPHRINE IV 250 ML IV SCH (03:40)
[2024-06-15 03:42] LABS: INR 1.11 (0.9-1.15); Partial Thromboplastin Time 30.8 SEC (24.5-34.5); Prothrombin Time 11.7 sec (9.3-11.8)
[2024-06-15] MEDS ORDERED: ALBUTEROL SULF 2.5 MG/0.5ML(0.5%) NEB SOLN NEB PRN (04:45)
[2024-06-15] MEDS ORDERED: NITROGLYCERIN 0.4 MG SL TAB SL PRN (04:45)
[2024-06-15] MEDS ORDERED: DEXTROSE (50%) 50ML SYRG IV PRN (04:45)
[2024-06-15] MEDS ORDERED: ONDANSETRON HCL 4 MG/2 ML VIAL IV PRN (04:45)
[2024-06-15] MEDS ORDERED: ACETAMINOPHEN 325 MG TAB PO PRN (04:45)
[2024-06-15] MEDS ORDERED: MORPHINE SULFATE INJ 2 MG/ml SYRG IV PRN (04:45)
[2024-06-15] MEDS: InsuLIN REG 1unit/0.01ml Soln (100units/ml) SC SCH (06:43)
[2024-06-15] MEDS: ACCU-CHEK COMFORT CURVE STRIP VI SCH (06:43)
[2024-06-15] MEDS: CALCIUM ACETATE 667 MG CAP PO SCH (08:15)
[2024-06-15] MEDS: SODIUM CHL 0.9% 1000 ML BAG XX ONE (10:30)
[2024-06-15] MEDS: ALBUMIN 25% 100 ML IV SCH (11:16)
[2024-06-15 13:53] LABS: Magnesium 3.3 mg/dL (1.6-2.6)
[2024-06-15] MEDS ORDERED: GABA250S7 PO (16:56)
[2024-06-15] MEDS: HYDROcodone-ACET 10/325MG TAB PO PRN (18:01)
[2024-06-15] MEDS: ATORVASTATIN 20 MG TAB PO SCH (21:26)
[2024-06-15] MEDS: GABAPENTIN 300 MG CAP PO SCH (21:26)
[2024-06-15] MEDS ORDERED: ATORVASTATIN 20 MG TAB PO SCH (22:00)
[2024-06-16] VITALS (10 sets, daily range): BP systolic 120–165; BP diastolic 72–91; PULSE 78–88; RESP 18–20; TEMP 97.6–98; O2SAT 95–100
[2024-06-16] MEDS ORDERED: VANCOMYCIN PER PHARMACY 0 MG IV SCH (05:45)
[2024-06-16] MEDS: VANCOMYCIN 1GM/200ML 200 ML IV ONE (06:21)
[2024-06-16 06:41] LABS: Chloride 92 mmol/L (98-107)
[2024-06-16 06:42] LABS: Anion Gap 12 (5-15); Calcium 6.9 mg/dL (8.7-10.4); Carbon Dioxide 28 mmol/L (20-30)
[2024-06-16 06:47] LABS: BUN/Creatinine Ratio 2.9 (10.0-20.0); Blood Urea Nitrogen 28 mg/dL (9-23); Glucose 284 mg/dL (74-106)
[2024-06-16 06:48] LABS: Sodium 132 mmol/L (136-145)
[2024-06-16 06:50] LABS: Basophils # (auto) 0 10 ^3/uL (0-0.2); Basophils % (auto) 0.8 % (0.0-2.0); Eosinophils # (auto) 0 10 ^3/uL (0-0.8); Eosinophils % (auto) 1.4 % (0.0-7.0); Hematocrit 42.8 % (41.0-53.0); Hemoglobin 14.3 g/dL (13.5-17.5); Lymphocytes # (auto) 0.6 10 ^3/uL (0.4-5.4); Lymphocytes % (auto) 20.6 % (10.0-50.0); Mean Corpuscular Hemoglobin 31.1 pg (28.0-32.0); Mean Corpuscular Hgb Conc. 33.4 g/dL (32.0-36.0); Mean Corpuscular Volume 93.1 fL (80.0-100.0); Monocytes # (auto) 0.4 10 ^3/uL (0-1.3); Monocytes % (auto) 12.8 % (0.0-12.0); Neutrophils % (auto) 64.4 % (37.0-80.0); Nucleated Red Blood Cells % 0.2 %; Platelet Count (auto) 94 10^3/uL (140-450); Red Blood Cells 4.59 10^6/uL (4.5-5.90); White Blood Cell 3.1 10^3/uL (4.4-10.8)
[2024-06-16 06:54] LABS: Red Cell Distribution Width 20.5 % (11.8-14.3)
[2024-06-16] MEDS: amLODIPine BESYLATE 5 MG TAB PO SCH (12:45)
[2024-06-16] MEDS: PARoxetine 20 MG TAB PO SCH (12:46)
[2024-06-17] VITALS (8 sets, daily range): BP systolic 110–243; BP diastolic 63–122; PULSE 68–102; RESP 14–18; TEMP 97.3–98.4; O2SAT 93–100
[2024-06-17] MEDS: VANCOMYCIN 1GM/200ML 200 ML IV ONE (10:34)
[2024-06-17] MEDS: SODIUM CHL 0.9% 1000 ML BAG XX ONE (10:36)
[2024-06-18] VITALS (10 sets, daily range): BP systolic 135–154; BP diastolic 76–81; PULSE 73–88; RESP 17–20; TEMP 97.4–98.1; O2SAT 96–100
[2024-06-18 07:07] LABS: Chloride 97 mmol/L (98-107); Potassium 4.6 mmol/L (3.5-5.1); Sodium 132 mmol/L (136-145)
[2024-06-18 07:08] LABS: Calcium 6.8 mg/dL (8.7-10.4)
[2024-06-18 07:13] LABS: Blood Urea Nitrogen 23 mg/dL (9-23); Glucose 319 mg/dL (74-106)
[2024-06-18 07:14] LABS: Magnesium 2.1 mg/dL (1.6-2.6)
[2024-06-18 07:24] LABS: Anion Gap 10 (5-15); Carbon Dioxide 25 mmol/L (20-30)
[2024-06-19] VITALS (12 sets, daily range): BP systolic 124–161; BP diastolic 67–82; PULSE 68–96; RESP 17–20; TEMP 96.8–97.7; O2SAT 92–100
[2024-06-19] MEDS: glipiZIDE 5 MG TAB PO SCH (08:45)
[2024-06-19] MEDS ORDERED: metFORMIN HYDROCHLORIDE 500 MG TAB PO SCH (18:00)
[2024-06-20] VITALS (8 sets, daily range): BP systolic 126–151; BP diastolic 68–81; PULSE 72–80; RESP 17–20; TEMP 36.4; O2SAT 95–99
[2024-06-20 07:06] LABS: Chloride 95 mmol/L (98-107); Sodium 130 mmol/L (136-145)
[2024-06-20 07:07] LABS: Anion Gap 9 (5-15); Calcium 6.3 mg/dL (8.7-10.4); Carbon Dioxide 26 mmol/L (20-30)
[2024-06-20 07:12] LABS: Glucose 388 mg/dL (74-106)
[2024-06-20 07:13] LABS: BUN/Creatinine Ratio 3.5 (10.0-20.0)
[2024-06-20 07:16] LABS: Blood Urea Nitrogen 35 mg/dL (9-23)
[2024-06-20 07:18] LABS: Potassium 5.7 mmol/L (3.5-5.1)
[2024-06-20] MEDS ORDERED: SODIUM CHL 0.9% 1000 ML BAG XX ONE (08:15)
[2024-06-20] MEDS ORDERED: glipiZIDE 5 MG TAB PO SCH (18:00)
== END 2024-06-20 18:30 | disposition home or self-care (01) | DRG 922 ==
LOC: ER 23:24 → EDBD 23:24 → TELE 06-15 04:40 → TELE-EAST 06-15 16:03
PROVIDERS: ADMIT Family Medicine; ATTEND Nurse Practitioner Acute Care
PROC: 5A1D70Z Performance of Urinary Filtration, Intermittent, Less than 6 Hours Per Day (ICD-10-PCS; principal; 2024-06-15)
PROC: 5A1D70Z Performance of Urinary Filtration, Intermittent, Less than 6 Hours Per Day (ICD-10-PCS; 2024-06-17)
DX: T67.5XXA Heat exhaustion, unspecified, initial encounter (principal); I21.A1 Myocardial infarction type 2; N18.6 End stage renal disease; R57.1 Hypovolemic shock; E87.1 Hypo-osmolality and hyponatremia; I50.30 Unspecified diastolic (congestive) heart failure; I13.2 Hypertensive heart and chronic kidney disease with heart failure and with stage 5 chronic kidney disease, or end stage renal disease; I95.89 Other hypotension; E11.51 Type 2 diabetes mellitus with diabetic peripheral angiopathy without gangrene; E78.5 Hyperlipidemia, unspecified; E11.22 Type 2 diabetes mellitus with diabetic chronic kidney disease; E86.0 Dehydration; D63.8 Anemia in other chronic diseases classified elsewhere; E86.1 Hypovolemia; G47.33 Obstructive sleep apnea (adult) (pediatric); D69.6 Thrombocytopenia, unspecified; D72.819 Decreased white blood cell count, unspecified; E11.65 Type 2 diabetes mellitus with hyperglycemia; E87.5 Hyperkalemia; E83.51 Hypocalcemia; Z53.20 Procedure and treatment not carried out because of patient's decision for unspecified reasons; Z87.11 Personal history of peptic ulcer disease; X30.XXXA Exposure to excessive natural heat, initial encounter; Z88.0 Allergy status to penicillin; Z88.6 Allergy status to analgesic agent; Z79.82 Long term (current) use of aspirin; Z79.899 Other long term (current) drug therapy; Z79.4 Long term (current) use of insulin; Z89.512 Acquired absence of left leg below knee; Z99.2 Dependence on renal dialysis; Z91.199 Patient's noncompliance with other medical treatment and regimen due to unspecified reason; Y93.89 Activity, other specified; Y92.89 Other specified places as the place of occurrence of the external cause; Y99.8 Other external cause status
CPT/HCPCS: 36415; 71045; 80048; 80053; 80061; 80202; 82565; 82962; 83036; 83605; 83735; 83880; 83970; 84100; 84443; 84484; 85025; 85610; 85730; 86850; 86900; 86901; 87040; 87077; 87186; 87340; 90935; 93005; 93306; 96361; 96365; 96368; 97110; 97163; G0378; J1815; P9047

== ENCOUNTER 2024-11-12 09:12 | Inpatient (IN) | payer MEDICARE, MEDICAID ==
[~2024-11-12] VITALS: Ht 177.8 cm; Wt 87.3 kg
[~2024-11-12 09:12] MED LIST changes: +GABA-2171 PO; -GABA-339 PO; +GABA250S7 PO; +IBUP-1455 PO; -OXY5T PO; +SILV1CRE82 TOP; +SUCR5CHW PO; +TRAM50TA2 PO
--- NOTE | 2024-11-12 09:42 | ED.PDOC ---
History of Present Illness HPI Comments 54 year old male ALICE presents to the ED with chief complaint of lower back pain and nausea/vomiting. Patient reports that he has been experiencing lower back pain since last night, however, he started to have 7 episodes of nausea and vomiting as well. EMS relays that patient had missed his dialysis yesterday due to being treated in the ED for watson to his hands. EMS states patient's blood glucose was 405 and BP was noted to be in the 170's/100's. Patient denies any diarrhea, abdominal pain, dizziness, fever, chills, or chest pain. Time Seen by MD: 09:35 Primary Care Provider: UNKNOWN Reviewed Notes: Nurses Notes, Medications, Allergies Allergies: Coded Allergies: Norepinephrine (Verified Allergy, Severe, 06/15/24) Penicillins (Verified Allergy, Mild, 09/04/21) Apple (Verified Allergy, Unknown, 09/08/21) Ibuprofen (Verified Allergy, Unknown, 02/07/18) Home Meds Active Scripts Tramadol Hcl (Tramadol Hcl) 50 Mg Tab, 50 MG PO Q8HP PRN, #10 TAB Prov:JACKELINE MARTINS PAC 11/11/24 Ibuprofen Micronized (Ibuprofen) 800 Mg Tab, 800 MG PO Q8HP PRN, #20 TAB Prov:JACKELINE MARTINS PAC 11/11/24 Silver Sulfadiazine (Silvadene) 1 % Cre, 1 APPLIC TOP DAILY, #50 GRAMS Prov:JACKELINE MARTINS PAC 11/11/24 Sucralfate (CARAFATE) 1 Gm Tab, 1 GM PO QID for 30 Days, #120 TAB Prov:SUZANNE NASH MD 09/11/21 Pantoprazole Sodium Sesquihydr (Protonix) 40 Mg Tab, 40 MG PO DAILY, #30 TAB Prov:SUZANNE NASH MD 09/11/21 Atorvastatin Calcium (Lipitor) 10 Mg Tab, 1 TAB PO QPM, #30 TAB Prov:SUZANNE NASH MD 09/11/21 Aspirin (HUNTER ASPIRIN EC LOW DOSE) 81 Mg Tab, 1 TAB PO DAILY, #30 TAB Prov:SUZANNE NASH MD 09/11/21 Reported Medications Gabapentin (GABAPENTIN) 250 Mg/5 Ml Sneha, 600 MG PO BID, ML 06/15/24 Zinc Sulfate (Zinc Sulfate) 220 Mg Cap, 220 MG PO DAILY for 30 Days, MG 03/29/22 Sodium Bicarbonate (Sodium Bicarbonate) 650 Mg Tab, 650 MG PO, TAB 03/29/22 Polyethylene Glycol (MIRALAX 17GM PWD) 17 Gm Pw, 17 GRAMS PO DAILY, #527 GRAMS 03/29/22 Paroxetine (PAXIL TABLET) 20 Mg Tb, 1 TAB PO DAILY, #30 TAB 5 Refills 03/29/22 Omeprazole (Gnp Omeprazole) 20 Mg Tab, 1 TAB PO DAILY, #90 TAB 1 Refill 03/29/22 Melatonin (KP MELATONIN) 3 Mg Tab, 3 MG PO, TAB 03/29/22 Insulin Lispro (Human) (Humalog) 100 Unit/Ml Inj, 100 UNIT SC, INJ 03/29/22 Fenofibrate (FENOFIBRATE) 145 Mg Tab, 1 TAB PO DAILY, #30 TAB 5 Refills 03/29/22 Carvedilol (Carvedilol) 6.25 Mg Tab, 6.25 MG PO DAILY for 30 Days, MG 03/29/22 Ascorbic Acid (Ascorbic Acid) 500 Mg Tab, 500 MG PO DAILY for 30 Days, MG 03/29/22 Albuterol Sulfate (Albuterol Sulfate Hfa) 108 Mcg/Act Aer, 108 MCG IN, AER 03/29/22 Amlodipine Besylate (Amlodipine Besylate) 10 Mg Tab, 1 TAB PO DAILYPRN 09/11/21 Calcium Acetate (Phosphate Bin (Calcium Acetate) 667 Mg Cap, 3 CAP PO TID 09/11/21 Hydrocodone-Acetaminophen (Hydrocodone Bitartrate/AC 10-325 mg) 1 Tab Tab, 1 TAB PO QID, TAB 09/06/21 Information Source: Patient, Emergency Med Personnel Mode of Arrival: EMS Severity: Moderate Timing: Hours Duration: Since onset Prehospital treatment: None Past Medical History PAST MEDICAL HISTORY: DM, ESRD, High Lipids, HTN, PAD, PUD Surgical History: BKA Family History Family History: Reviewed,noncontributory to illness, Unknown Social History Smoker: Non-Smoker Alcohol: Denies ETOH Use Drugs: Denies Drug Use Lives In: Home Constitutional: denies: chills, diaphoresis, fatigue, fever, malaise, sweats, weakness, others EENTM: denies: blurred vision, double vision, ear bleeding, ear discharge, ear drainage, ear pain, ear ringing, eye pain, eye redness, hearing loss, mouth pain, mouth swelling, nasal discharge, nose bleeding, nose congestion, nose pain, photophobia, tearing, throat pain, throat swelling, voice changes, others Respiratory: denies: cough, hemoptysis, orthopnea, SOB at rest, shortness of breath, SOB with excertion, stridor, wheezing, others Cardiovascular: denies: chest pain, dizzy spells, diaphoresis, Dyspnea on exertion, edema, irregular heart beat, left arm pain, lightheadedness, palpitations, PND, syncope, others Gastrointestinal: reports: nausea, vomiting; denies: abdomen distended, abdominal pain, blood streaked bowels, constipated, diarrhea, dysphagia, difficulty swallowing, hematemesis, melena, poor appetite, poor fluid intake, rectal bleeding, rectal pain, others Genitourinary: denies: burning, dysuria, flank pain, frequency, hematuria, incontinence, penile discharge, penile sore, pain, testicle pain, testicle swelling, urgency, others Neurological: denies: dizziness, fainting, headache, left sided numbness, left sided weakness, numbness, paresthesia, pre-existing deficit, right sided numbness, right sided weakness, seizure, speech problems, tingling, tremors, weakness, others Musculoskeletal: reports: back pain; denies: gout, joint pain, joint swelling, muscle pain, muscle stiffness, neck pain, others Integumetry: denies: bruises, change in color, change in hair/nails, dryness, laceration, lesions, lumps, rash, wounds, others Allergic/Immunocompromised: denies: Difficulty Healing, Frequent Infections, Hives, Itching, others Hematologic/Lymphatic: denies: anemia, blood clots, easy bleeding, easy bruising, swollen glands, others Endocrine: denies: excessive hunger, excessive sweating, excessive thirst, excessive urination, flushing, intolerance to cold, intolerance to heat, unexplained weight gain, unexplained weight loss, others Psychiatric: denies: anxiety, bipolar disorder, depression, hopeless, panic disorder, schizophrenia, sleepless, suicidal, others All Other Systems: Reviewed and Negative Physical Exam General Appearance: Moderate Distress, Normal HEENT: Normal ENT Inspection, PERRL/EOMI Neck: Full Range of Motion, Non-Tender, Normal, Normal Inspection Respiratory: Chest Non-Tender, No Accessory Muscle Use, No Respiratory Distress, Other (Coarse breath sounds) Cardiovascular: No Edema, No JVD, No Murmur, No Gallop, Normal Peripheral Pulses, Regular Rate/Rhythm Breast Exam: Deferred Gastrointestinal: No Organomegaly, Non Tender, No Pulsatile Mass, Normal Bowel Sounds, Soft Genitalia: Deferred Pelvic: Deferred Rectal: Deferred Extremities: No calf tenderness, Normal capillary refill, Normal range of motion, Non-tender, Pedal edema, Other (Old left below-knee amputation) Musculoskeletal : Apperance: Normal Neurologic: Alert, No Motor Deficits, Normal Mood, No Sensory Deficits Cerebellar Function: NOT DONE Reflexes: NOT DONE Skin: Dry, Normal Color, Warm Peripheral Pulses: 3+ Radial (R), 3+ Radial (L) Lymphatic: No Adenopathy Was a procedure done? Was a procedure done?: No Differential Dx Considerations may include: Hyperglycemia Electrolyte imbalance X-Ray, Labs, Meds, VS Vital Signs Date Time Temp Pulse Resp B/P (MAP) Pulse Ox O2 Delivery O2 Flow Rate FiO2 11/12/24 09:46 97.7 92 14 174/102 (126) 98 Lab Test 11/12/24 10:59 11/12/24 10:12 Range/Units POC Glucose 432 *H 70-106 mg/dl White Blood Count 8.6 4.4-10.8 10^3/uL Red Blood Count 3.13 L 4.5-5.90 10^6/uL Hemoglobin 10.3 L 13.5-17.5 g/dL Hematocrit 31.2 L 41.0-53.0 % Mean Corpuscular Volume 99.8 80.0-100.0 fL Mean Corpuscular Hemoglobin 32.8 H 28.0-32.0 pg Mean Corpuscular Hemoglobin Concent 32.9 32.0-36.0 g/dL Red Cell Distribution Width 14.8 H 11.8-14.3 % Platelet Count 174 140-450 10^3/uL Mean Platelet Volume 8.4 6.9-10.8 fL Neutrophils (%) (Auto) 86.4 H 37.0-80.0 % Lymphocytes (%) (Auto) 4.0 L 10.0-50.0 % Monocytes (%) (Auto) 8.8 0.0-12.0 % Eosinophils (%) (Auto) 0.3 0.0-7.0 % Basophils (%) (Auto) 0.5 0.0-2.0 % Neutrophils # (Auto) 7.4 1.6-8.6 10 ^3/uL Lymphocytes # (Auto) 0.3 L 0.4-5.4 10 ^3/uL Monocytes # (Auto) 0.8 0-1.3 10 ^3/uL Eosinophils # (Auto) 0 0-0.8 10 ^3/uL Basophils # (Auto) 0 0-0.2 10 ^3/uL Nucleated Red Blood Cells 0.1 % Sodium Level 129 L 136-145 mmol/L Potassium Level 4.5 3.5-5.1 mmol/L Chloride Level 95 L 98-107 mmol/L Carbon Dioxide Level 23 20-31 mmol/L Anion Gap 11 5-15 Blood Urea Nitrogen 47 H 9-23 mg/dL Creatinine 11.49 *H 0.700-1.30 mg/dL Glomerular Filtration Rate Calc 5 >90 mL/min BUN/Creatinine Ratio 4.1 L 10.0-20.0 Serum Glucose 442 *H 74-106 mg/dL Calcium Level 6.3 L 8.7-10.4 mg/dL Beta-Hydroxybutyric Acid 0.933 H < 0.4 mmol/L Current Medications Medications (Trade) Dose Ordered Sig/Marc Route Start Time Stop Time Status Last Admin Insulin Human Regular (InsuLIN R) 10 units ONCE ONCE IV 11/12/24 09:30 11/12/24 09:31 DC 11/12/24 11:04 Chest XR: FINDINGS: Lines and Tubes: None Lungs: No focal consolidation. Pleura: No effusion. No pneumothorax. Cardiomediastinal contours: Unremarkable Bones: No acute osseous abnormality. IMPRESSION: No acute cardiopulmonary disease. Patient alert. Complaining of high blood sugar. Recently seen in the ER. Vitals stable. Answering all questions. Chronic condition. Does not take care himself. He does get dialysis. Blood sugar elevated. Beta hydroxybutyric acid elevated. Anion gap is normal. Kidney function elevated. Reviewed his previous visit. Explained to the patient. Continue cardiac monitoring. X-ray reviewed does not show any acute changes. EKG reviewed does not show any acute changes. Images Reviewed?: Images reviewed and evaluated by me Time of 1ST Reevaluation: 10:35 Reevaluation 1ST: Unchanged Patient Education/Counseling: Diagnosis, Treatment Family Education/Counseling: No Family Present Departure 1 Departure Time of Disposition: 11:23 Impression: Primary Impression: Uncontrolled diabetes mellitus Qualified Codes: E13.65 - Other specified diabetes mellitus with hyperglycemia Additional Impression: Chronic kidney disease on chronic dialysis Disposition: ADMITTED INPATIENT Admit to: Med Surg Condition: Guarded Critical Care Note Critical Care Time?: Yes (45 min-critical care time only) Stability Stability form required: No Heart Score Heart Score: Heart Score Response (Comments) Value History Slightly Suspicious 0 EKG Normal 0 Age 45-64 1 Risk Factors >3 or Hx ASHD 2 Troponin Normal limit 0 Total 3 I personally scribed for THOMAS WEEKS MD ([email or web address]) on 11/12/24 at 09:42. Electronically submitted by Jono Bowden ([email or web address]). I personally scribed for THOMAS WEEKS MD ([email or web address]) on 11/12/24 at 11:00. Electronically submitted by Jono Bowden ([email or web address]). THOMAS WEEKS MD Nov 12, 2024 09:42
--- NOTE | 2024-11-12 10:36 | DVH ---
CHEST RADIOGRAPH Indication: sob Technique: Single frontal view of the chest was obtained Comparison: XY CHEST XRAY 1 VIEW on DOS: 06/17/24, XY CHEST PORTABLE on DOS: 06/15/24, CHEST PORTABLE o n DOS: 03/28/22, CXRP on DOS: 03/28/22 FINDINGS: Lines and Tubes: None Lungs: No focal consolidation. Pleura: No effusion. No pneumothorax. Cardiomediastinal contours: Unremarkable Bones: No acute osseous abnormality. IMPRESSION: No acute cardiopulmonary disease.
[2024-11-12 10:41] LABS: Basophils # (auto) 0 10 ^3/uL (0-0.2); Basophils % (auto) 0.5 % (0.0-2.0); Eosinophils # (auto) 0 10 ^3/uL (0-0.8); Eosinophils % (auto) 0.3 % (0.0-7.0); Hematocrit 31.2 % (41.0-53.0); Hemoglobin 10.3 g/dL (13.5-17.5); Lymphocytes # (auto) 0.3 10 ^3/uL (0.4-5.4); Mean Corpuscular Hemoglobin 32.8 pg (28.0-32.0); Mean Corpuscular Hgb Conc. 32.9 g/dL (32.0-36.0); Mean Corpuscular Volume 99.8 fL (80.0-100.0); Monocytes # (auto) 0.8 10 ^3/uL (0-1.3); Monocytes % (auto) 8.8 % (0.0-12.0); Neutrophils # (auto) 7.4 10 ^3/uL (1.6-8.6); Neutrophils % (auto) 86.4 % (37.0-80.0); Nucleated Red Blood Cells % 0.1 %; Platelet Count (auto) 174 10^3/uL (140-450); Red Blood Cells 3.13 10^6/uL (4.5-5.90); Red Cell Distribution Width 14.8 % (11.8-14.3); White Blood Cell 8.6 10^3/uL (4.4-10.8)
[2024-11-12 10:42] LABS: Potassium 4.5 mmol/L (3.5-5.1)
[2024-11-12 10:43] LABS: Anion Gap 11 (5-15); Carbon Dioxide 23 mmol/L (20-31)
[2024-11-12 10:48] LABS: BUN/Creatinine Ratio 4.1 (10.0-20.0); Blood Urea Nitrogen 47 mg/dL (9-23); Calcium 6.3 mg/dL (8.7-10.4); Chloride 95 mmol/L (98-107); Sodium 129 mmol/L (136-145)
[2024-11-12 10:51] LABS: Glucose 442 mg/dL (74-106)
[2024-11-12] MEDS: InsuLIN REG 1unit/0.01ml Soln (100units/ml) IV ONE (11:04)
[2024-11-12 13:34] VITALS: PULSE 91; RESP 22; O2SAT 100
[2024-11-12] MEDS ORDERED: DEXTROSE (50%) 50ML SYRG IV PRN (17:00)
--- NOTE | 2024-11-12 17:23 | DVHHP2 ---
History of Present Illness Reason for Visit: Back pain History of Present Illness Santosh Stratton is a 54-year-old male with past medical history of hypertension, hyperlipidemia, diabetes, PH CAD, PUD, left BKA in 2021, and end- stage renal disease receiving dialysis Thursday and Thursday who presents to the ED for back pain 10/10 constant and aching. Patient reports that he also burned his hand yesterday on a heater and he currently has a wrapped with Kerlix. Patient denies any trauma or injury. Patient reports that he is allergic to morphine, apples, ibuprofen, norepinephrine, penicillins but can take Dilaudid and that works for him. Patient states he other medications cause nausea and rash. Patient also reports that he has dribbles when he voids and it is burning in nature even with him being on chronic dialysis he still states that he still has troubles and he believes that he has a UTI. Patient denies abdominal pain, chills, fever, chest pain, shortness of breath, thirst, fatigue, hunger, dry mouth, and blurred vision. Cardiovascular: HTN, hyperipidemia Endocrine: Diabetes Past Medical History PAD, PUD, end-stage renal disease Past Surgical History: Other Past Surgical History Left BKA in 2021 Family History: DM (Both mom and dad) Smoke: <1 pack per day ALCOHOL: occassional Drugs: Marijuana Lives: with Family Domestic Violence: Neg Review of Systems Constitutional: No: Fever, Chills, Sweats, Weakness, Malaise, Other Eyes: No: Pain, Vision change, Conjunctivae inflammation, Eyelid inflammation, Other, Redness ENT: No: Ear pain, Ear discharge, Nose pain, Nose discharge, Nose congestion, Mouth pain, Mouth swelling, Throat pain, Throat swelling, Other Respiratory: No: Cough, Dry, Shortness of breath, SOB with excertion, Wheezing, Hemoptysis, Pleuritic Pain, Sputum, Wheezing, Other Cardiovascular: No: Chest Pain, Palpitations, Orthopnea, Paroxysmal Noc. Dyspnea, Edema, Lt Headedness, Other Gastrointestinal: No: Nausea, Vomiting, Abdominal Pain, Diarrhea, Constipation, Melena, Hematochezia, Other Genitourinary: No Dysuria, No Frequency; Incontinence (Patient reports that he has troubles and it is burning); No Hematuria, No Retention; Other (Patient end- stage renal disease receiving dialysis) Musculoskeletal: back pain; No: other, neck pain, shoulder pain, arm pain, hand pain, leg pain, foot pain Skin: Other (Hands were burned yesterday covered with Kerlix); No: Rash, Lesions, Jaundice, Bruising Neurological: No: Weakness, Numbness, Incoordination, Change in speech, Confusion, Seizures, Other Allergies: Coded Allergies: Norepinephrine (Verified Allergy, Severe, 06/15/24) Morphine (Verified Allergy, Intermediate, rash, 11/12/24) Penicillins (Verified Allergy, Mild, 09/04/21) Apple (Verified Allergy, Unknown, 09/08/21) Ibuprofen (Verified Allergy, Unknown, 02/07/18) Medications Current Medications Medications Dose Ordered Sig/Marc Route Start Time Stop Time Status Last Admin Dose Admin Calcium Acetate 667 mg TID PO 11/12/24 22:00 UNV Paroxetine HCl 20 mg DAILY PO 11/13/24 10:00 UNV Patient Own Medication 1 tab DAILYPRN PO 11/13/24 10:00 UNV Patient Own Medication 6.25 mg DAILY PO 11/13/24 10:00 UNV Patient Own Medication 600 mg BID PO 11/12/24 22:00 UNV Patient Own Medication 1 tab DAILY PO 11/13/24 10:00 UNV Patient Own Medication 17 grams DAILY PO 11/13/24 10:00 UNV Ondansetron HCl 4 mg Q4HP PRN IV 11/12/24 17:00 UNV Enoxaparin Sodium 40 mg DAILY SC 11/13/24 10:00 UNV Acetaminophen 650 mg Q6HP PRN PO 11/12/24 17:00 UNV Insulin Glargine 15 units HS SC 11/12/24 22:00 UNV Diagnostic Test (Pha) 1 strip IQ4HR 11/12/24 20:00 UNV Insulin Human Regular IQ4HR SC 11/12/24 20:00 UNV Dextrose 50 ml UD PRN IV 11/12/24 17:00 UNV Hydromorphone HCl 0.5 mg Q4HPRN PRN IV 11/12/24 17:15 UNV Exam Vital Signs Vital Signs Date Time Temp Pulse Resp B/P (MAP) Pulse Ox O2 Delivery O2 Flow Rate FiO2 11/12/24 16:00 82 22 143/73 (96) 96 11/12/24 13:34 Nasal Cannula* 2 28 11/12/24 12:00 97.8 97.8 General Appearance: Alert, Oriented X3, Cooperative, No acute distress HEENT: Atraumatic, PERRLA, EOMI Respiratory: Clear to auscultation, Normal air movement Cardiovascular: Normal S1, Normal S2 Abdominal: Normal bowel sounds, Soft, No tenderness, No hepatospenomegaly, No masses Extremities: No clubbing, No cyanosis, Other (Left BKA 2021) Skin: No breakdown, No significant lesion Neuro: Normal speech, Strength at 5/5 X4 ext, Normal tone, Sensation intact Psych/Mental Status: Mental status NL, Mood NL Labs/Xrays Labs Test 11/12/24 10:59 11/12/24 10:12 Range/Units POC Glucose 432 *H 70-106 mg/dl White Blood Count 8.6 4.4-10.8 10^3/uL Red Blood Count 3.13 L 4.5-5.90 10^6/uL Hemoglobin 10.3 L 13.5-17.5 g/dL Hematocrit 31.2 L 41.0-53.0 % Mean Corpuscular Volume 99.8 80.0-100.0 fL Mean Corpuscular Hemoglobin 32.8 H 28.0-32.0 pg Mean Corpuscular Hemoglobin Concent 32.9 32.0-36.0 g/dL Red Cell Distribution Width 14.8 H 11.8-14.3 % Platelet Count 174 140-450 10^3/uL Mean Platelet Volume 8.4 6.9-10.8 fL Neutrophils (%) (Auto) 86.4 H 37.0-80.0 % Lymphocytes (%) (Auto) 4.0 L 10.0-50.0 % Monocytes (%) (Auto) 8.8 0.0-12.0 % Eosinophils (%) (Auto) 0.3 0.0-7.0 % Basophils (%) (Auto) 0.5 0.0-2.0 % Neutrophils # (Auto) 7.4 1.6-8.6 10 ^3/uL Lymphocytes # (Auto) 0.3 L 0.4-5.4 10 ^3/uL Monocytes # (Auto) 0.8 0-1.3 10 ^3/uL Eosinophils # (Auto) 0 0-0.8 10 ^3/uL Basophils # (Auto) 0 0-0.2 10 ^3/uL Nucleated Red Blood Cells 0.1 % Sodium Level 129 L 136-145 mmol/L Potassium Level 4.5 3.5-5.1 mmol/L Chloride Level 95 L 98-107 mmol/L Carbon Dioxide Level 23 20-31 mmol/L Anion Gap 11 5-15 Blood Urea Nitrogen 47 H 9-23 mg/dL Creatinine 11.49 *H 0.700-1.30 mg/dL Glomerular Filtration Rate Calc 5 >90 mL/min BUN/Creatinine Ratio 4.1 L 10.0-20.0 Serum Glucose 442 *H 74-106 mg/dL Calcium Level 6.3 L 8.7-10.4 mg/dL Beta-Hydroxybutyric Acid 0.933 H < 0.4 mmol/L CHEST RADIOGRAPH Indication: sob Technique: Single frontal view of the chest was obtained Comparison: XY CHEST XRAY 1 VIEW on DOS: 06/17/24, XY CHEST PORTABLE on DOS: 06/15/24, CHEST PORTABLE on DOS: 03/28/22, CXRP on DOS: 03/28/22 FINDINGS: Lines and Tubes: None Lungs: No focal consolidation. Pleura: No effusion. No pneumothorax. Cardiomediastinal contours: Unremarkable Bones: No acute osseous abnormality. IMPRESSION: No acute cardiopulmonary disease. 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 [facility] CONS 11/12/24 Transmitted -[place] 16:36 Calcium Acetate PHA 11/12/24 Logged Capsule (Phoslo 22:00 Paroxetine Tablet PHA 11/13/24 Logged (Paxil Tablet) 10:00 (Nf) Amlodipine PHA 11/13/24 Logged Besylate 10:00 (Nf) Carvedilol PHA 11/13/24 Logged 10:00 (Nf) Gabapentin PHA 11/12/24 Logged 22:00 (Nf) Omeprazole (Gnp PHA 11/13/24 Logged Omeprazole) 10:00 (Nf) Polyethylene PHA 11/13/24 Logged Glycol (Miralax 17gm P 10:00 Hemoglobin A1c LAB 11/12/24 In Process 16:55 Admit ADMIT 11/12/24 Transmitted 16:57 Allergies SHAUNA 11/12/24 In Process 16:57 Code Status CODE 11/12/24 Transmitted 16:57 Renal DIET 11/12/24 Transmitted Standard(2gna,3gk,Lopho) Dinner Ondansetron Hcl PHA 11/12/24 Logged (Zofran) 17:00 Enoxaparin Sodium PHA 11/13/24 Logged (Lovenox) 10:00 Complete Blood Count LAB 11/13/24 Verified 04:00 Comprehensive LAB 11/13/24 Verified Metabolic Panel 04:00 Acetaminophen Tablet PHA 11/12/24 Logged (Tylenol Tablet) 17:00 Insulin Lantus PHA 11/12/24 Logged (Glargine) (Lantus) 22:00 Glucose Blood PHA 11/12/24 Logged (Accu-Chek Comfort 20:00 Insulin R (Human) PHA 11/12/24 Logged (Insulin R) 20:00 Dextrose 50% Syringe PHA 11/12/24 Logged 17:00 Hydromorphone PHA 11/12/24 Logged Injection (Dilaudid 17:15 Beta-Hydroxybutyrate LAB 11/12/24 Logged 18:00 Beta-Hydroxybutyrate LAB 11/13/24 Verified 00:00 Beta-Hydroxybutyrate LAB 11/13/24 Verified 06:00 Beta-Hydroxybutyrate LAB 11/13/24 Verified 12:00 Beta-Hydroxybutyrate LAB 11/13/24 Verified 18:00 Acetone LAB 11/12/24 Logged 17:08 Date of Service: Nov 12, 2024 Billing Provider: LOKI ALVAREZ Common Visit Codes: [id number] INP/OBS CARE (MOD) LOKI ALVAREZ Nov 12, 2024 17:23
[2024-11-12] MEDS: ONDANSETRON HCL 4 MG/2 ML VIAL IV PRN (18:17)
[2024-11-12] MEDS: HYDROmorphone HCL 2 MG/ML VL/or syr IV PRN (18:18)
[2024-11-12 19:30] VITALS: PULSE 83; RESP 12; O2SAT 100
[2024-11-12] MEDS: ACCU-CHEK COMFORT CURVE STRIP VI SCH (19:48)
[2024-11-12] MEDS: InsuLIN REG 1unit/0.01ml Soln (100units/ml) SC SCH (19:53)
[2024-11-12] MEDS ORDERED: ACCU-CHEK COMFORT CURVE STRIP VI SCH (20:00)
[2024-11-12] MEDS ORDERED: InsuLIN REG 1unit/0.01ml Soln (100units/ml) SC SCH (20:00)
[2024-11-12] MEDS ORDERED: GABAPENTIN 300 MG CAP PO SCH (22:00)
[2024-11-12] MEDS: INSULIN LANTUS (GLARGINE) 1 /0.01ml (100units/ml) SC SCH (22:30)
[2024-11-12] MEDS: CALCIUM ACETATE 667 MG CAP PO SCH (22:31)
[2024-11-12] MEDS: GABAPENTIN 300 MG CAP PO SCH (22:32)
[2024-11-12] MEDS: SODIUM CHLORIDE 1 GM TAB PO ONE (23:58)
[2024-11-13] MEDS: amLODIPine BESYLATE 5 MG TAB PO SCH (04:08)
[2024-11-13 05:10] LABS: Basophils # (auto) 0 10 ^3/uL (0-0.2); Basophils % (auto) 0.4 % (0.0-2.0); Eosinophils # (auto) 0.1 10 ^3/uL (0-0.8); Eosinophils % (auto) 0.6 % (0.0-7.0); Hematocrit 33.6 % (41.0-53.0); Hemoglobin 11.2 g/dL (13.5-17.5); Lymphocytes # (auto) 0.9 10 ^3/uL (0.4-5.4); Lymphocytes % (auto) 9.5 % (10.0-50.0); Mean Corpuscular Hgb Conc. 33.3 g/dL (32.0-36.0); Mean Corpuscular Volume 99.1 fL (80.0-100.0); Monocytes # (auto) 1.1 10 ^3/uL (0-1.3); Monocytes % (auto) 11.4 % (0.0-12.0); Neutrophils # (auto) 7.3 10 ^3/uL (1.6-8.6); Neutrophils % (auto) 78.1 % (37.0-80.0); Nucleated Red Blood Cells % 0.2 %; Platelet Count (auto) 196 10^3/uL (140-450); Red Blood Cells 3.39 10^6/uL (4.5-5.90); Red Cell Distribution Width 14.8 % (11.8-14.3); White Blood Cell 9.4 10^3/uL (4.4-10.8)
[2024-11-13] MEDS: DEXTROSE (50%) 50ML SYRG IV PRN (05:18)
[2024-11-13 05:26] LABS: Albumin 3.6 g/dL (3.2-4.8); Alkaline Phosphatase 77 U/L (46-116); Anion Gap 11 (5-15); BUN/Creatinine Ratio 4.1 (10.0-20.0); Carbon Dioxide 24 mmol/L (20-31); Chloride 98 mmol/L (98-107)
[2024-11-13 05:27] LABS: Total Protein 7.4 g/dL (5.7-8.2)
[2024-11-13 05:43] LABS: Aspartate Aminotransferase 8 U/L (13-40); Blood Urea Nitrogen 49 mg/dL (9-23); Glucose 63 mg/dL (74-106); Sodium 133 mmol/L (136-145)
[2024-11-13 05:44] LABS: Alanine Aminotransferase < 9 U/L (7-40); Bilirubin, Total < 0.2 mg/dL (0.2-1.0); Calcium 6.4 mg/dL (8.7-10.4)
[2024-11-13 08:00] VITALS: PULSE 79; RESP 16; O2SAT 100
[2024-11-13] MEDS: OMEPRAZOLE-SOD BICARB 20 MG POWDER PO SCH (09:35)
[2024-11-13] MEDS: PARoxetine 20 MG TAB PO SCH (09:36)
[2024-11-13] MEDS: ENOXAPARIN SOD 30 MG/0.3 ML SYRINGE SC SCH (09:38)
--- NOTE | 2024-11-13 09:44 | DVHINCON2 ---
Date of service: Nov 13, 2024 Referring Physician Hilda Gray, nurse practitioner Reason for Consultation End-stage renal disease to manage hemodialysis History of Present Illness Patient is 54-year-old male with past medical history of DM, ESRD, High Lipids, HTN, PAD, and PUD is admitted for abdominal pain nausea vomiting is admitted for diabetic ketoacidosis. Nephrology is consulted to manage his hemodialysis Past Medical History DM, ESRD, High Lipids, HTN, PAD, and PUD Past Surgical History Below-knee amputation AV fistula Allergies: Coded Allergies: Norepinephrine (Verified Allergy, Severe, 06/15/24) Morphine (Verified Allergy, Intermediate, rash, 11/12/24) Penicillins (Verified Allergy, Mild, 09/04/21) Apple (Verified Allergy, Unknown, 09/08/21) Ibuprofen (Verified Allergy, Unknown, 02/07/18) Home Meds Active Scripts Tramadol Hcl (Tramadol Hcl) 50 Mg Tab, 50 MG PO Q8HP PRN, #10 TAB Prov:JACKELINE MARTINS [facility] 11/11/24 Ibuprofen Micronized (Ibuprofen) 800 Mg Tab, 800 MG PO Q8HP PRN, #20 TAB Prov:JACKELINE MARTINS [facility] 11/11/24 Silver Sulfadiazine (Silvadene) 1 % Cre, 1 APPLIC TOP DAILY, #50 GRAMS Prov:JACKELINE MARTINS [facility] 11/11/24 Sucralfate (CARAFATE) 1 Gm Tab, 1 GM PO QID for 30 Days, #120 TAB Prov:SUZANNE NASH MD 09/11/21 Pantoprazole Sodium Sesquihydr (Protonix) 40 Mg Tab, 40 MG PO DAILY, #30 TAB Prov:SUZANNE NASH MD 09/11/21 Atorvastatin Calcium (Lipitor) 10 Mg Tab, 1 TAB PO QPM, #30 TAB Prov:SUZANNE NASH MD 09/11/21 Aspirin (HUNTER ASPIRIN EC LOW DOSE) 81 Mg Tab, 1 TAB PO DAILY, #30 TAB Prov:SUZANNE NASH MD 09/11/21 Reported Medications Gabapentin (GABAPENTIN) 250 Mg/5 Ml Sneha, 600 MG PO BID, ML 06/15/24 Zinc Sulfate (Zinc Sulfate) 220 Mg Cap, 220 MG PO DAILY for 30 Days, MG 03/29/22 Sodium Bicarbonate (Sodium Bicarbonate) 650 Mg Tab, 650 MG PO, TAB 03/29/22 Polyethylene Glycol (MIRALAX 17GM PWD) 17 Gm Pw, 17 GRAMS PO DAILY, #527 GRAMS 03/29/22 Paroxetine (PAXIL TABLET) 20 Mg Tb, 1 TAB PO DAILY, #30 TAB 5 Refills 03/29/22 Omeprazole (Gnp Omeprazole) 20 Mg Tab, 1 TAB PO DAILY, #90 TAB 1 Refill 03/29/22 Melatonin (KP MELATONIN) 3 Mg Tab, 3 MG PO, TAB 03/29/22 Insulin Lispro (Human) (Humalog) 100 Unit/Ml Inj, 100 UNIT SC, INJ 03/29/22 Fenofibrate (FENOFIBRATE) 145 Mg Tab, 1 TAB PO DAILY, #30 TAB 5 Refills 03/29/22 Carvedilol (Carvedilol) 6.25 Mg Tab, 6.25 MG PO DAILY for 30 Days, MG 03/29/22 Ascorbic Acid (Ascorbic Acid) 500 Mg Tab, 500 MG PO DAILY for 30 Days, MG 03/29/22 Albuterol Sulfate (Albuterol Sulfate Hfa) 108 Mcg/Act Aer, 108 MCG IN, AER 03/29/22 Amlodipine Besylate (Amlodipine Besylate) 10 Mg Tab, 1 TAB PO DAILYPRN 09/11/21 Calcium Acetate (Phosphate Bin (Calcium Acetate) 667 Mg Cap, 3 CAP PO TID 09/11/21 Hydrocodone-Acetaminophen (Hydrocodone Bitartrate/AC 10-325 mg) 1 Tab Tab, 1 TAB PO QID, TAB 09/06/21 Current Medications Current Medications Medications (Trade) Dose Ordered Sig/Marc Route PRN Reason Start Time Stop Time Status Last Admin Calcium Acetate (Phoslo Capsule) 667 mg TID PO 11/12/24 22:00 11/13/24 07:11 Paroxetine HCl (Paxil Tablet) 20 mg DAILY PO 11/13/24 10:00 11/13/24 09:36 Amlodipine Besylate (Norvasc Tablet) 10 mg DAILYPRN PO 11/12/24 17:55 Hold Carvedilol (Coreg Tablet) 6.25 mg DAILY PO 11/12/24 22:00 Hold Gabapentin (Neurontin Capsule) 600 mg BID PO 11/12/24 22:00 11/12/24 18:03 DC Omeprazole (Omeprazole/ Sodium Bicarbo 20-1680 Mg) 20 mg DAILY PO 11/13/24 10:00 11/13/24 09:35 Polyethylene Glycol (Miralax 17GM Powder) 17 gm DAILY PO 11/13/24 10:00 Hold Diagnostic Test (Pha) (Accu-Chek Comfort Curve T) 1 strip IQ4HR 11/12/24 20:00 11/12/24 17:06 DC Insulin Human Regular (InsuLIN R) IQ4HR SC 11/12/24 20:00 11/12/24 17:06 DC Dextrose 50 ml UD PRN IV Blood Sugar LESS THAN 60 11/12/24 17:00 11/12/24 17:06 DC Ondansetron HCl (Zofran) 4 mg Q4HP PRN IV NAUSEA / VOMITING 11/12/24 17:00 11/12/24 18:17 Enoxaparin Sodium (Lovenox) 30 mg DAILY SC 11/13/24 10:00 11/13/24 09:38 Acetaminophen (Tylenol Tablet) 650 mg Q6HP PRN PO PAIN SCALE 1-3 OR TEMP>100.4 11/12/24 17:00 Insulin Glargine (Lantus) 15 units HS SC 11/12/24 22:00 11/12/24 22:30 Diagnostic Test (Pha) (Accu-Chek Comfort Curve T) 1 strip IQ4HR 11/12/24 20:00 11/13/24 08:00 Insulin Human Regular (InsuLIN R) IQ4HR SC 11/12/24 20:00 11/13/24 08:51 Dextrose 50 ml UD PRN IV Blood Sugar LESS THAN 60 11/12/24 17:00 11/13/24 05:18 Hydromorphone HCl (Dilaudid Injection) 0.5 mg Q4HPRN PRN IV SEVERE PAIN (7-10 PAIN SCALE) 11/12/24 17:15 11/13/24 04:41 Gabapentin (Neurontin Capsule) 300 mg HS PO 11/12/24 22:00 11/12/24 22:32 Dextrose/Sodium Chloride 1,000 ml @ 100 mls/hr Q10H IV 11/13/24 10:15 11/13/24 10:42 Family History: Patient reports no known family medical history. Review of Systems All 12 item review of systems reviewed with the patient nonsignificant except what is mentioned in the history of present illness H&P Exam Vital Signs/I&O Vital Sign Date Time Temp Pulse Resp B/P (MAP) Pulse Ox O2 Delivery O2 Flow Rate FiO2 11/13/24 12:00 84 11/13/24 08:00 97.3 16 91/68 (76) 100 97.3 11/12/24 19:30 Nasal Cannula* 2 28 Physical Exam Patient is awake alert Lungs clear to auscultation bilaterally Cardiac exam regular rate and rhythm GI soft nontender was normal Extremities left below-knee amputation Neuro nonfocal Labs/Diagnostic Data Labs/Diagnostic Data Laboratory Tests Test 11/13/24 12:00 11/13/24 08:06 11/13/24 07:05 11/13/24 05:45 Range/Units POC Glucose 132 H 149 H 128 H 70-106 mg/dl Test 11/13/24 05:14 11/13/24 04:49 11/13/24 04:38 11/13/24 01:01 Range/Units POC Glucose 37 *L 40 *L 237 H 70-106 mg/dl White Blood Count 9.4 4.4-10.8 10^3/uL Red Blood Count 3.39 L 4.5-5.90 10^6/uL Hemoglobin 11.2 L 13.5-17.5 g/dL Hematocrit 33.6 L 41.0-53.0 % Mean Corpuscular Volume 99.1 80.0-100.0 fL Mean Corpuscular Hemoglobin 33.0 H 28.0-32.0 pg Mean Corpuscular Hemoglobin Concent 33.3 32.0-36.0 g/dL Red Cell Distribution Width 14.8 H 11.8-14.3 % Platelet Count 196 140-450 10^3/uL Mean Platelet Volume 8.3 6.9-10.8 fL Neutrophils (%) (Auto) 78.1 37.0-80.0 % Lymphocytes (%) (Auto) 9.5 L 10.0-50.0 % Monocytes (%) (Auto) 11.4 0.0-12.0 % Eosinophils (%) (Auto) 0.6 0.0-7.0 % Basophils (%) (Auto) 0.4 0.0-2.0 % Neutrophils # (Auto) 7.3 1.6-8.6 10 ^3/uL Lymphocytes # (Auto) 0.9 0.4-5.4 10 ^3/uL Monocytes # (Auto) 1.1 0-1.3 10 ^3/uL Eosinophils # (Auto) 0.1 0-0.8 10 ^3/uL Basophils # (Auto) 0 0-0.2 10 ^3/uL Nucleated Red Blood Cells 0.2 % Sodium Level 133 L 136-145 mmol/L Potassium Level 4.0 3.5-5.1 mmol/L Chloride Level 98 98-107 mmol/L Carbon Dioxide Level 24 20-31 mmol/L Anion Gap 11 5-15 Blood Urea Nitrogen 49 H 9-23 mg/dL Creatinine 12.00 *H 0.700-1.30 mg/dL Glomerular Filtration Rate Calc 5 >90 mL/min BUN/Creatinine Ratio 4.1 L 10.0-20.0 Serum Glucose 63 #L 74-106 mg/dL Calcium Level 6.4 L 8.7-10.4 mg/dL Phosphorus Level 3.9 2.4-5.1 mg/dL Magnesium Level 2.2 1.6-2.6 mg/dL Total Bilirubin < 0.2 L 0.2-1.0 mg/dL Aspartate Amino Transferase (AST) 8 L 13-40 U/L Alanine Aminotransferase (ALT) < 9 7-40 U/L Alkaline Phosphatase 77 46-116 U/L B-Type Natriuretic Peptide 349.37 0-100 pg/mL Total Protein 7.4 5.7-8.2 g/dL Albumin 3.6 3.2-4.8 g/dL Beta-Hydroxybutyric Acid 0.053 < 0.4 mmol/L Test 11/13/24 00:24 11/12/24 22:23 11/12/24 19:47 11/12/24 17:50 Range/Units Beta-Hydroxybutyric Acid 0.055 0.553 H < 0.4 mmol/L POC Glucose 254 H 241 H 70-106 mg/dl Lactic Acid Level 1.0 0.4-2.0 mmol/L Test 11/12/24 17:22 11/12/24 10:59 11/12/24 10:12 Range/Units POC Glucose 261 H 432 *H 70-106 mg/dl White Blood Count 8.6 4.4-10.8 10^3/uL Red Blood Count 3.13 L 4.5-5.90 10^6/uL Hemoglobin 10.3 L 13.5-17.5 g/dL Hematocrit 31.2 L 41.0-53.0 % Mean Corpuscular Volume 99.8 80.0-100.0 fL Mean Corpuscular Hemoglobin 32.8 H 28.0-32.0 pg Mean Corpuscular Hemoglobin Concent 32.9 32.0-36.0 g/dL Red Cell Distribution Width 14.8 H 11.8-14.3 % Platelet Count 174 140-450 10^3/uL Mean Platelet Volume 8.4 6.9-10.8 fL Neutrophils (%) (Auto) 86.4 H 37.0-80.0 % Lymphocytes (%) (Auto) 4.0 L 10.0-50.0 % Monocytes (%) (Auto) 8.8 0.0-12.0 % Eosinophils (%) (Auto) 0.3 0.0-7.0 % Basophils (%) (Auto) 0.5 0.0-2.0 % Neutrophils # (Auto) 7.4 1.6-8.6 10 ^3/uL Lymphocytes # (Auto) 0.3 L 0.4-5.4 10 ^3/uL Monocytes # (Auto) 0.8 0-1.3 10 ^3/uL Eosinophils # (Auto) 0 0-0.8 10 ^3/uL Basophils # (Auto) 0 0-0.2 10 ^3/uL Nucleated Red Blood Cells 0.1 % Sodium Level 129 L 136-145 mmol/L Potassium Level 4.5 3.5-5.1 mmol/L Chloride Level 95 L 98-107 mmol/L Carbon Dioxide Level 23 20-31 mmol/L Anion Gap 11 5-15 Blood Urea Nitrogen 47 H 9-23 mg/dL Creatinine 11.49 *H 0.700-1.30 mg/dL Glomerular Filtration Rate Calc 5 >90 mL/min BUN/Creatinine Ratio 4.1 L 10.0-20.0 Serum Glucose 442 *H 74-106 mg/dL Hemoglobin A1c 8.4 H <5.7 % A1C Calcium Level 6.3 L 8.7-10.4 mg/dL Beta-Hydroxybutyric Acid 0.933 H < 0.4 mmol/L Assessment End-stage renal disease on hemodialysis Chronic diastolic Congestive heart failure Uncontrolled diabetes mellitus Diabetic ketoacidosis Hypotension Hypocalcemia Hyponatremia due to excess H2O Anemia of chronic kidney disease Recommendations Hemodialysis today Epogen 6000 IV post hemodialysis Fluid restrictions Renal diet DC amlodipine due to low blood pressure Insulin sliding scale Check phosphorus 25 hydroxyvitamin D and PTH We will continue to follow Patient seen and examined by myself in the ER. I discussed my plan of care with the patient and primary nurse at the bedside I would like to thank hilda for the consult, will follow Plan discussed with: Patient JOSIAH CANELA MD Nov 13, 2024 09:44
[2024-11-13] MEDS: SODIUM CHL 0.9% 1000 ML BAG XX ONE (09:45)
[2024-11-13] MEDS ORDERED: POLYETHYLENE GLYCOL 17 GM PWDR PO SCH (10:00)
[2024-11-13] MEDS: D5W/SOD CHLO 0.9% 1,000 ML IV SCH ×2 (10:30→10:42)
[2024-11-13 10:41] LABS: Magnesium 2.2 mg/dL (1.6-2.6)
[2024-11-13 10:43] LABS: Phosphorus 3.9 mg/dL (2.4-5.1)
--- NOTE | 2024-11-13 12:34 | DVHPNRES ---
Progress Note Date Seen: Nov 13, 2024 Resident Creating Document: JAMIE BAUTISTA RESIDENT Medical Necessity Reason Pt with a Central, PICC or Fol: Yes Subjective Review of Systems Patient is 54 years old male with past medical history of hypertension, diabetes mellitus type 2, hyperlipidemia, peripheral artery disease, PUD, history of osteomyelitis of the left leg, status post left below-knee amputation due to completion from osteomyelitis and diabetes complication came with a complaint of back pain and dysuria. As per patient patient has been having dysuria when pain for last 4-5 days. Patient reported that he does not usually Pee but lately he has been making some urine and it hurts when he pees. Reported back pain for last 2 days, 10/10, sharp in nature. Also endorsed nausea and vomiting 7 times, no blood. Did not show any, chest pain, shortness of breath, dysarthria or change in vision. Initial lab workup revealed WBC 8.6, hemoglobin 10.3, platelet 174, sodium 129, potassium 4.5, serum creatinine 11.49, GFR is 0 5, POC for 32, lactic acid 1, HGB A1c 8.4, anion gap 11, calcium 6.3, the hydroxybutyrate 0.93. BNP 349.37, CXR no acute cardiopulmonary disease.X-ray lumbar spine and thoracic spine negative for acute fracture PMH-hypertension, diabetes mellitus type 2, hyperlipidemia, peripheral artery disease, PUD, history of osteomyelitis of the left leg, status post left below- knee amputation due to completion from osteomyelitis and diabetes complication PSH- below-knee amputation Allergy- Advil, ibuprofen, morphine, norepinephrine, penicillin Personal History/ Social History- smoker, occasional alcoholic, smokes weed, lives with son at home Patient was seen today at the bedside. Patient reports some back pain Cardiovascular- deny acute chest pain or shortness of breath or cough or palpitation Respiratory- denies cough or short of breath or wheezing Gastrointestinal- denies any rectal bleeding, nausea or vomiting Musculoskeletal--tenderness of the lumbar spine+ Neurological- denies acute dysarthria, dysphagia, change in vision Psychiatry- denies depression or SI or HI Skin- denies acute rash or purpura Patient was seen today for clinical evaluation. Labs and chart reviewed. Patient is seen by Nephrology, recommendation reviewed and appreciated. Patient reports feeling tired. Patient complains of dysuria whenever she is making small amount of urine. Patient reported that he usually do not make it in but lately he has been making urine and causing him dysuria. HGB A1c 8.4. Objective vital signs Vital Sign Date Time Temp Pulse Resp B/P (MAP) Pulse Ox O2 Delivery O2 Flow Rate FiO2 11/13/24 12:00 84 9 120/72 (88) 94 11/13/24 08:00 97.3 97.3 11/12/24 19:30 Nasal Cannula* 2 28 medications Current Medications Medications Dose Ordered Sig/Marc Route Start Time Stop Time Status Last Admin Dose Admin Calcium Acetate 667 mg TID PO 11/12/24 22:00 11/13/24 07:11 667 MG Paroxetine HCl 20 mg DAILY PO 11/13/24 10:00 11/13/24 09:36 20 MG Amlodipine Besylate 10 mg DAILYPRN PO 11/12/24 17:55 Hold Carvedilol 6.25 mg DAILY PO 11/12/24 22:00 Hold Omeprazole 20 mg DAILY PO 11/13/24 10:00 11/13/24 09:35 20 MG Polyethylene Glycol 17 gm DAILY PO 11/13/24 10:00 Hold Ondansetron HCl 4 mg Q4HP PRN IV 11/12/24 17:00 11/12/24 18:17 4 MG Enoxaparin Sodium 30 mg DAILY SC 11/13/24 10:00 11/13/24 09:38 30 MG Acetaminophen 650 mg Q6HP PRN PO 11/12/24 17:00 Insulin Glargine 15 units HS SC 11/12/24 22:00 11/12/24 22:30 15 UNITS Diagnostic Test (Pha) 1 strip IQ4HR 11/12/24 20:00 11/13/24 12:20 1 STRIP Insulin Human Regular IQ4HR SC 11/12/24 20:00 11/13/24 08:51 2 UNITS Dextrose 50 ml UD PRN IV 11/12/24 17:00 11/13/24 05:18 50 ML Hydromorphone HCl 0.5 mg Q4HPRN PRN IV 11/12/24 17:15 11/13/24 04:41 0.5 MG Gabapentin 300 mg HS PO 11/12/24 22:00 11/12/24 22:32 300 MG Dextrose/Sodium Chloride 1,000 ml @ 100 mls/hr Q10H IV 11/13/24 10:15 11/13/24 10:42 100 MLS/HR Examination General examination- patient awake, conversant, cooperative HEENT- PEERLA, no acute nasal discharge Cardiovascular- S1-S2 audible, rate and rhythm regular, no murmur Respiratory- CTAB, no wheeze or rhonchi Gastrointestinal-nontender, bowel sound+. Nondistended Musculoskeletal-no acute joint swelling or tenderness or redness# Lower extremity- left below-knee amputation Neurological- cranial nerves intact, no acute dysarthria or dysphagia Psychiatry- denies depression or SI or HI Skin- no acute rash or purpura laboratory and microbiology Laboratory Tests 11/13/24 04:38 Test 11/13/24 04:38 Range/Units Serum Glucose 63 #L 74-106 mg/dL Problem List/Assessment/Plan Problem List/Assessment/Plan # Uncontrolled diabetes mellitus # Suspected UTI # ESRD on dialysis Thursday/Thursday/Thursday # Chronic diastolic heart failure # Anemia likely anemia of chronic disease # Episode of hypoglycemia # uncontrolled hypertension # elevated BNP likely due to CKD # back pain under evaluation- # peripheral artery disease # PUD # hypoglycemia # hypotension Initial lab workup revealed WBC 8.6, hemoglobin 10.3, platelet 174, sodium 129, potassium 4.5, serum creatinine 11.49, GFR is 0 5, POC for 32, lactic acid 1, HGB A1c 8.4, anion gap 11, calcium 6.3, the hydroxybutyrate 0.93. BNP 349.37, CXR CXR cardiomegaly X-ray lumbar spine and thoracic spine negative for acute fracture UDS positive for cannabinoids. Patient seen by Nephrology, recommendation reviewed and appreciated. Nephrology recommended hemodialysis today. Continue ceftriaxone 1 g IV daily -continue D5.45NS iv @ 75 mL per hour -insulin sliding scale as prescribed -continue famotidine as prescribed -Lovenox 30 mg subcutaneously daily -continue other medication as prescribed Goals of care/advance care planning; FULL CODE; discussed with the patient >15 minutes PUD prophylaxis: Famotidine DVT prophylaxis: Lovenoxfamo Plan discussed with Dr. Lorenzo, nursing staff, patient Total time spent on patient evaluation, chart review, assessment and plan, discussion discussion >30 minutes Plan discussed with: Patient Plan discussed with: Patient, Other (RN) My Orders My Orders Orders - BABU,MOHAMMED RESIDENT Procedure Category Date Status Time D5w/Sod Chlo 0.9% PHA 11/13/24 In Process (D5w Ns 0.9%) 10:15 Urinalysis LAB 11/13/24 Logged 10:08 Magnesium LAB 11/13/24 Logged 10:08 Drug Screen LAB 11/13/24 Logged 10:08 Blood Alcohol LAB 11/13/24 Logged 10:08 Date of Service: Nov 13, 2024 Billing Provider: PEDRO LORENZO MD Common Visit Codes: 62184-[id number] INP/OBS CARE(HIGH) Secondary Visit Codes: 76249-KOANYOSO CARE PLAN 30 MINUTES JAMIE BAUTISTA Nov 13, 2024 12:34 PEDRO LORENZO MD Nov 15, 2024 20:43
[2024-11-13 13:54] LABS: Magnesium 2.2 mg/dL (1.6-2.6)
[2024-11-13 14:07] LABS: Blood Alcohol < 3.0 mg/dL (<10)
--- NOTE | 2024-11-13 14:28 | DVH ---
EXAM: XY LUMBAR SPINE 3 VIEW INDICATION: back pain COMPARISON: None TECHNIQUE: 2 views of the thoracic and lumbar spine were obtained. Findings: There is no evidence of an acute fracture, spondylolysis, or spondylolisthesis. The vertebral body heights and disc spaces are well-maintained. No blastic or lytic lesions are appreciated. No radiopaque foreign bodies. No superficial soft tissue abnormalities. Impression: 1. No acute osseous abnormality.
--- NOTE | 2024-11-13 14:33 | DVH ---
EXAM: XY SPINE THORACIC 2VIEW INDICATION: back pain COMPARISON: None TECHNIQUE: 2 views of the thoracic spine were obtained. Findings: There is no evidence of an acute fracture, spondylolysis, or spondylolisthesis. The vertebral body heights and disc spaces are well-maintained. No blastic or lytic lesions are appreciated. No radiopaque foreign bodies. No superficial soft tissue abnormalities. Impression: 1. No acute osseous abnormality.
[2024-11-13] MEDS: cefTRIAXone 1GM/50ML D5W 50 ML IV ONE (15:30)
[2024-11-13 16:02] LABS: Urine Bacteria None Seen /hpf (None Seen)
[2024-11-13 16:19] LABS: Urine Blood 2+ /uL (Negative); Urine Clarity Ex.Turbid (Clear); Urine Color Dark-Brown (Yellow); Urine Protein, UAD 2+ (Negative); Urine Squamous Epithelial Cell None Seen /hpf (<5); Urine Urobilinogen Normal (Negative); Urine WBC 3302 /hpf (0 - 3); Urine WBC Clumps PRESENT /hpf (None Seen)
[2024-11-13 16:34] LABS: Cannabinoid Screen, Urine Pos (NEGATIVE)
[2024-11-13 16:39] LABS: Amphetamine Screen, Urine Neg (NEGATIVE); Barbiturate Scree,Urine Neg (NEGATIVE); Benzodiazephine Screen, Urine Neg (NEGATIVE); Cocaine Screen, Urine Neg (NEGATIVE); Opiate Scree,Urine Neg (NEGATIVE); Phencyclidine Screen, Urine Neg (NEGATIVE)
[2024-11-13 20:26] LABS: COVID19 ANTIGEN SOFIA FIA NEGATIVE (NEGATIVE)
[2024-11-13 20:27] LABS: Rapid Influenza A Negative (Negative); Rapid Influenza B Negative (Negative)
[2024-11-13] MEDS ORDERED: EPOETIN ALFA-EPBX 4,000 UNIT/ML VIAL SC ONE (21:00)
[2024-11-13] MEDS: FAMOTIDINE (10MG/ML) 2ML VL IV SCH (22:00)
[2024-11-13 23:25] VITALS: RESP 16; O2SAT 95
[2024-11-13 23:35] VITALS: BP 112/63; PULSE 89; RESP 14; TEMP 98.6; O2SAT 93
[2024-11-14] VITALS (8 sets, daily range): BP systolic 120–159; BP diastolic 71–87; PULSE 85–93; RESP 16–22; TEMP 97.7–98; O2SAT 90–97
[2024-11-14 05:44] LABS: Basophils # (auto) 0 10 ^3/uL (0-0.2); Basophils % (auto) 0.5 % (0.0-2.0); Eosinophils # (auto) 0.1 10 ^3/uL (0-0.8); Eosinophils % (auto) 1.1 % (0.0-7.0); Hemoglobin 10.1 g/dL (13.5-17.5); Lymphocytes # (auto) 0.5 10 ^3/uL (0.4-5.4); Lymphocytes % (auto) 7.3 % (10.0-50.0); Mean Corpuscular Hemoglobin 33.4 pg (28.0-32.0); Mean Corpuscular Hgb Conc. 33.7 g/dL (32.0-36.0); Mean Corpuscular Volume 99.1 fL (80.0-100.0); Monocytes # (auto) 0.7 10 ^3/uL (0-1.3); Neutrophils % (auto) 80.1 % (37.0-80.0); Nucleated Red Blood Cells % 0.1 %; Platelet Count (auto) 152 10^3/uL (140-450); Red Blood Cells 3.03 10^6/uL (4.5-5.90); Red Cell Distribution Width 15.4 % (11.8-14.3); White Blood Cell 6.2 10^3/uL (4.4-10.8)
[2024-11-14 05:54] LABS: Potassium 4.9 mmol/L (3.5-5.1)
[2024-11-14 05:55] LABS: Anion Gap 10 (5-15); Carbon Dioxide 23 mmol/L (20-31)
[2024-11-14 06:00] LABS: BUN/Creatinine Ratio 4.5 (10.0-20.0)
[2024-11-14 06:01] LABS: Magnesium 2.1 mg/dL (1.6-2.6)
[2024-11-14 06:21] LABS: Blood Urea Nitrogen 54 mg/dL (9-23); Chloride 96 mmol/L (98-107); Glucose 138 mg/dL (74-106); Sodium 129 mmol/L (136-145)
[2024-11-14 06:27] LABS: Calcium 5.6 mg/dL (8.7-10.4)
[2024-11-14] MEDS: cefTRIAXone 1GM/50ML D5W 50 ML IV SCH (08:49)
[2024-11-14 09:12] LABS: Hepatitis A Ab IgM Negative; Hepatitis B Core IgM Negative (Negative)
[2024-11-14 09:13] LABS: Hepatitis B Surface Antigen Negative (Negative); Hepatitis C Antibody Negative (Negative)
[2024-11-14] MEDS: CALCIUM GLUC 1,000mg/50ml-NS 50 ML IV ONE (10:45)
--- NOTE | 2024-11-14 11:58 | DVHPN2 ---
Progress Note Date Seen: Nov 14, 2024 Medical Necessity Reason Pt with a Central, PICC or Fol: No Subjective Patient reports: Feels better Objective vital signs Vital Sign Date Time Temp Pulse Resp B/P (MAP) Pulse Ox O2 Delivery O2 Flow Rate FiO2 11/14/24 09:00 97.8 90 18 120/76 (91) 96 97.8 11/13/24 23:25 Room Air* 0 21 Total Intake and Output 11/13/24 11/13/24 11/14/24 14:59 22:59 06:59 Intake Total 255 ml 425 ml 0 ml Balance 255 ml 425 ml 0 ml medications Current Medications Medications Dose Ordered Sig/Marc Route Start Time Stop Time Status Last Admin Dose Admin Calcium Acetate 667 mg TID PO 11/12/24 22:00 11/14/24 06:40 667 MG Paroxetine HCl 20 mg DAILY PO 11/13/24 10:00 11/14/24 08:49 20 MG Amlodipine Besylate 10 mg DAILYPRN PO 11/12/24 17:55 Hold Carvedilol 6.25 mg DAILY PO 11/12/24 22:00 Hold Polyethylene Glycol 17 gm DAILY PO 11/13/24 10:00 Hold Ondansetron HCl 4 mg Q4HP PRN IV 11/12/24 17:00 11/12/24 18:17 4 MG Enoxaparin Sodium 30 mg DAILY SC 11/13/24 10:00 11/14/24 08:48 30 MG Acetaminophen 650 mg Q6HP PRN PO 11/12/24 17:00 Insulin Glargine 15 units HS SC 11/12/24 22:00 Hold 11/12/24 22:30 15 UNITS Diagnostic Test (Pha) 1 strip IQ4HR 11/12/24 20:00 11/14/24 08:00 1 STRIP Insulin Human Regular IQ4HR SC 11/12/24 20:00 11/13/24 08:51 2 UNITS Dextrose 50 ml UD PRN IV 11/12/24 17:00 11/13/24 05:18 50 ML Hydromorphone HCl 0.5 mg Q4HPRN PRN IV 11/12/24 17:15 11/14/24 08:59 0.5 MG Gabapentin 300 mg HS PO 11/12/24 22:00 11/13/24 22:21 300 MG Famotidine 10 mg EOD@2200 IV 11/13/24 22:00 Dextrose/Sodium Chloride 1,000 ml @ 75 mls/hr [id number] IV 11/13/24 10:30 11/13/24 23:50 75 MLS/HR Ceftriaxone Sodium 50 ml @ 100 mls/hr DAILY@09 IV 11/14/24 09:00 11/14/24 08:49 100 MLS/HR Examination: GENERAL:Abnormal, LUNGS:Abnormal, ABDOMEN:Abnormal laboratory and microbiology Laboratory Tests 11/14/24 05:27 Test 11/14/24 05:27 Range/Units Serum Glucose 138 H 74-106 mg/dL Problem List/Assessment/Plan Problem List/Assessment/Plan End-stage renal disease on hemodialysis Chronic diastolic Congestive heart failure Uncontrolled diabetes mellitus Diabetic ketoacidosis Hypotension Hypocalcemia Hyponatremia due to excess H2O Anemia of chronic kidney disease HD today renal diet phos binder epogen Plan discussed with: Patient YOVANI WAYNE MD Nov 14, 2024 11:58
--- NOTE | 2024-11-14 13:40 | DVH ---
Right Upper Extremity Arterial Duplex Clinical History: EVALUATE FISTULA Comparison: None Technique: Duplex Doppler evaluation including color Doppler and spectral/pulsed waveform analysis of the upper extremity arteries was performed. Findings: RIGHT: Peak systolic velocities are as follows: Subclavian 86 cm/s Axillary 33 cm/s Brachial 38 cm/s Prox Radial 91 cm/s Prox Ulnar 79 cm/s Right upper extremity arteriovenous fistula is present. Inflow artery is patent. Thrombus is present in the basilic vein outflow. IMPRESSION: Right upper extremity arteriovenous fistula is present. Inflow artery is patent. Thrombus is present in the basilic vein outflow. REFERENCE VALUES, [facility] ([facility], [facility]) vascular Imaging Lab Criteria: Peak systolic velocity ranges (in cm/sec) are as follows: <150 cm/s - <20 % stenosis 150-200 cm/s - 20-49% stenosis 200-300 cm/s - 50-75% stenosis >300 cm/s -> 75% stenosis
[2024-11-14] MEDS ORDERED: HEPARIN DRIP/D5W 100UNITS/ML 250 ML IV SCH (13:45)
[2024-11-14] MEDS ORDERED: HEPARIN SODIUM (PORCINE) 5000 UNITS/ML 1ML VIAL IV ONE (13:45)
[2024-11-14] MEDS: HEPARIN 1,000 UNITS/ml 1ML VIAL IV ONE (14:30)
--- NOTE | 2024-11-14 17:32 | DVHPNRES ---
Progress Note Date Seen: Nov 14, 2024 Resident Creating Document: JAMIE BAUTISTA RESIDENT Medical Necessity Reason Pt with a Central, PICC or Fol: No Subjective Review of Systems Patient is 54 years old male with past medical history of hypertension, diabetes mellitus type 2, hyperlipidemia, peripheral artery disease, PUD, history of osteomyelitis of the left leg, status post left below-knee amputation due to completion from osteomyelitis and diabetes complication came with a complaint of back pain and dysuria. As per patient patient has been having dysuria when pain for last 4-5 days. Patient reported that he does not usually Pee but lately he has been making some urine and it hurts when he pees. Reported back pain for last 2 days, 10/, sharp in nature. Also endorsed nausea and vomiting 7 times, no blood. Did not show any, chest pain, shortness of breath, dysarthria or change in vision. Initial lab workup revealed WBC 8.6, hemoglobin 10.3, platelet 174, sodium 129, potassium 4.5, serum creatinine 11.49, GFR is 0 5, POC for 32, lactic acid 1, HGB A1c 8.4, anion gap 11, calcium 6.3, the hydroxybutyrate 0.93. BNP 349.37, CXR no acute cardiopulmonary disease.X-ray lumbar spine and thoracic spine negative for acute fracture. Patient tested negative for COVID-19 and influenza type A and B. UDS positive for cannabinoids. Urinalysis revealed leukocyte esterase 3+, RBC 63, WBC 3302 PMH-hypertension, diabetes mellitus type 2, hyperlipidemia, peripheral artery disease, PUD, history of osteomyelitis of the left leg, status post left below- knee amputation due to completion from osteomyelitis and diabetes complication PSH- below-knee amputation Allergy- Advil, ibuprofen, morphine, norepinephrine, penicillin Personal History/ Social History- smoker, occasional alcoholic, smokes weed, lives with son at home Patient was seen today at the bedside. Patient reports some back pain Cardiovascular- deny acute chest pain or shortness of breath or cough or palpitation Respiratory- denies cough or short of breath or wheezing Gastrointestinal- denies any rectal bleeding, nausea or vomiting Musculoskeletal--tenderness of the lumbar spine+ Neurological- denies acute dysarthria, dysphagia, change in vision Psychiatry- denies depression or SI or HI Skin- denies acute rash or purpura Patient was seen today for clinical evaluation. Labs and chart reviewed. Patient tested positive for UTI. Patient on ceftriaxone 1 g IV daily. Reports feeling better today. Patient is seen by Nephrology. Recommendation reviewed and appreciated. Patient is scheduled for hemodialysis today. Objective vital signs Vital Sign Date Time Temp Pulse Resp B/P (MAP) Pulse Ox O2 Delivery O2 Flow Rate FiO2 11/14/24 14:50 95 17 120/58 11/14/24 13:00 97.7 97 97.7 11/13/24 23:25 Room Air* 0 21 Total Intake and Output 11/13/24 11/13/24 11/14/24 15:00 23:00 07:00 Intake Total 330 ml 350 ml 0 ml Balance 330 ml 350 ml 0 ml medications Current Medications Medications Dose Ordered Sig/Marc Route Start Time Stop Time Status Last Admin Dose Admin Calcium Acetate 667 mg TID PO 11/12/24 22:00 11/14/24 06:40 667 MG Paroxetine HCl 20 mg DAILY PO 11/13/24 10:00 11/14/24 08:49 20 MG Amlodipine Besylate 10 mg DAILYPRN PO 11/12/24 17:55 Hold Carvedilol 6.25 mg DAILY PO 11/12/24 22:00 Hold Polyethylene Glycol 17 gm DAILY PO 11/13/24 10:00 Hold Ondansetron HCl 4 mg Q4HP PRN IV 11/12/24 17:00 11/12/24 18:17 4 MG Enoxaparin Sodium 30 mg DAILY SC 11/13/24 10:00 11/14/24 08:48 30 MG Acetaminophen 650 mg Q6HP PRN PO 11/12/24 17:00 Insulin Glargine 15 units HS SC 11/12/24 22:00 Hold 11/12/24 22:30 15 UNITS Diagnostic Test (Pha) 1 strip IQ4HR 11/12/24 20:00 11/14/24 08:00 1 STRIP Insulin Human Regular IQ4HR SC 11/12/24 20:00 11/14/24 08:00 3 UNITS Dextrose 50 ml UD PRN IV 11/12/24 17:00 11/13/24 05:18 50 ML Hydromorphone HCl 0.5 mg Q4HPRN PRN IV 11/12/24 17:15 11/14/24 14:50 0.5 MG Gabapentin 300 mg HS PO 11/12/24 22:00 11/13/24 22:21 300 MG Famotidine 10 mg EOD@2200 IV 11/13/24 22:00 Dextrose/Sodium Chloride 1,000 ml @ 75 mls/hr [id number] IV 11/13/24 10:30 11/14/24 13:10 75 MLS/HR Ceftriaxone Sodium 50 ml @ 100 mls/hr DAILY@09 IV 11/14/24 09:00 11/14/24 08:49 100 MLS/HR laboratory and microbiology Laboratory Tests 11/14/24 05:27 Test 11/14/24 05:27 Range/Units Serum Glucose 138 H 74-106 mg/dL Problem List/Assessment/Plan Problem List/Assessment/Plan # Uncontrolled diabetes mellitus # UTI # suspected sepsis likely due to UTI # ESRD on dialysis Thursday/Thursday/Thursday # Chronic diastolic congestive heart failure # Anemia likely anemia of chronic disease # Episode of hypoglycemia # uncontrolled hypertension # elevated BNP likely due to CKD # back pain under evaluation- # peripheral artery disease # PUD # hypoglycemia # hypotension #Hypocalcemia #Hyponatremia likely dilutional@ #Substance Abuse- Cannabinoids Initial lab workup revealed WBC 8.6, hemoglobin 10.3, platelet 174, sodium 129, potassium 4.5, serum creatinine 11.49, GFR is 0 5, POC for 32, lactic acid 1, HGB A1c 8.4, anion gap 11, calcium 6.3, the hydroxybutyrate 0.93. BNP 349.37, CXR CXR cardiomegaly X-ray lumbar spine and thoracic spine negative for acute fracture UDS positive for cannabinoids. Patient seen by Nephrology, recommendation reviewed and appreciated. Nephrology recommended hemodialysis today. Continue ceftriaxone 1 g IV daily -continue D5.45NS iv @ 75 mL per hour -insulin sliding scale as prescribed -continue famotidine as prescribed -Lovenox 30 mg subcutaneously daily -continue other medication as prescribed Calcium acetate 667 mg p.o. t.i.d. Continue paroxetine 20 mg daily Continue renal diet Continue hemodialysis as per schedule Goals of care/advance care planning; FULL CODE; discussed with the patient >15 minutes PUD prophylaxis: Famotidine DVT prophylaxis: Lovenoxfamo Plan discussed with Dr. Lorenzo, nursing staff, patient Total time spent on patient evaluation, chart review, assessment and plan, discussion discussion >30 minutes Plan discussed with: Patient Plan discussed with: Patient, Other (RN) My Orders My Orders Orders - JAMIE BAUTISTA Procedure Category Date Status Time Platelet Monitoring [facility] 11/14/24 In Process 13:43 Heparin Per [facility] 11/14/24 In Process Standardized Proce 13:43 PTPTT LAB 11/14/24 Logged 13:43 Complete Blood Count LAB 11/14/24 Logged 13:43 Fistula /Sinus Tract XY 11/14/24 Logged 15:14 Dietary Evaluation Review Comments: 1. follow a Renal Standard diet with 2gNa 3K low Phos with CCHO-60 restriction 2. Consider Calcim supplementation Expected Outcomes/Goals: controlled uremic symdrome, controlled DM, slowly healed wounds. Date of Service: Nov 14, 2024 Billing Provider: PEDRO LORENZO MD Common Visit Codes: [id number] INP/OBS CARE(HIGH) JAMIE BAUTISTA Nov 14, 2024 17:32 PEDRO LORENZO MD Nov 15, 2024 20:43
[2024-11-14 18:20] LABS: Basophils # (auto) 0 10 ^3/uL (0-0.2); Basophils % (auto) 0.3 % (0.0-2.0); Eosinophils # (auto) 0.1 10 ^3/uL (0-0.8); Eosinophils % (auto) 1.1 % (0.0-7.0); Hematocrit 31.2 % (41.0-53.0); Hemoglobin 10.3 g/dL (13.5-17.5); Lymphocytes # (auto) 0.4 10 ^3/uL (0.4-5.4); Lymphocytes % (auto) 6.2 % (10.0-50.0); Mean Corpuscular Hemoglobin 32.7 pg (28.0-32.0); Mean Corpuscular Hgb Conc. 32.9 g/dL (32.0-36.0); Mean Corpuscular Volume 99.6 fL (80.0-100.0); Monocytes # (auto) 0.7 10 ^3/uL (0-1.3); Monocytes % (auto) 11.6 % (0.0-12.0); Neutrophils % (auto) 80.8 % (37.0-80.0); Platelet Count (auto) 161 10^3/uL (140-450); Red Blood Cells 3.14 10^6/uL (4.5-5.90); Red Cell Distribution Width 15.1 % (11.8-14.3); White Blood Cell 6.2 10^3/uL (4.4-10.8)
[2024-11-14 18:37] LABS: INR 1.13 (0.9-1.15); Prothrombin Time 11.9 sec (9.3-11.8)
[2024-11-15] VITALS (9 sets, daily range): BP systolic 113–178; BP diastolic 76–105; PULSE 80–84; RESP 12–19; TEMP 97.3–97.4; O2SAT 91–99
[2024-11-15] MEDS: SODIUM ZIRCONIUM CYCL 10 GM PAK PO SCH (10:00)
--- NOTE | 2024-11-15 10:09 | ECG ---
[facility] Test Date: 2024-11-15 Test Time: 09:40:59 Pat Name: JENNIFER GUZMAN Department: Room: 0239T A Gender: M Screening Unit Registered Nurse: DESIRAE : 1970 Requested By: FAIZAN ZAMORA Order Number: [id number] Reading MD: Conchis Beck Measurements Intervals [place] Rate: 84 P: 54 TX: 168 QRS: 68 QRSD: 156 T: 43 QT: 456 QTc: 538 Interpretive Statements Normal sinus rhythm Right bundle branch block Electronically Signed On 11-15-2024 13:32:46 PST by Conchis Beck Please click the below link to view image of tracing.
[2024-11-15] MEDS: IODIXANOL 320MG/ML 100ML BTL IV ONE (13:01)
--- NOTE | 2024-11-15 13:24 | DVHPN2 ---
Progress Note Date Seen: Nov 15, 2024 Medical Necessity Reason Pt with a Central, PICC or Fol: No Subjective Patient reports: No new complaints Review of Systems: GI:Normal Objective vital signs Vital Sign Date Time Temp Pulse Resp B/P (MAP) Pulse Ox O2 Delivery O2 Flow Rate FiO2 11/15/24 09:42 85 14 124/72 11/15/24 09:00 97.4 92 97.4 11/15/24 08:00 Room Air* 0 21 Total Intake and Output 11/14/24 11/14/24 11/15/24 15:00 23:00 07:00 Intake Total 354 ml 100 ml Balance 354 ml 100 ml medications Current Medications Medications Dose Ordered Sig/Marc Route Start Time Stop Time Status Last Admin Dose Admin Calcium Acetate 667 mg TID PO 11/12/24 22:00 11/15/24 06:00 667 MG Paroxetine HCl 20 mg DAILY PO 11/13/24 10:00 11/14/24 08:49 20 MG Amlodipine Besylate 10 mg DAILYPRN PO 11/12/24 17:55 Hold Carvedilol 6.25 mg DAILY PO 11/12/24 22:00 Hold Polyethylene Glycol 17 gm DAILY PO 11/13/24 10:00 Hold Ondansetron HCl 4 mg Q4HP PRN IV 11/12/24 17:00 11/12/24 18:17 4 MG Enoxaparin Sodium 30 mg DAILY SC 11/13/24 10:00 11/14/24 08:48 30 MG Acetaminophen 650 mg Q6HP PRN PO 11/12/24 17:00 Insulin Glargine 15 units HS SC 11/12/24 22:00 Hold 11/12/24 22:30 15 UNITS Diagnostic Test (Pha) 1 strip IQ4HR 11/12/24 20:00 11/15/24 08:24 1 STRIP Insulin Human Regular IQ4HR SC 11/12/24 20:00 11/14/24 21:53 9 UNITS Dextrose 50 ml UD PRN IV 11/12/24 17:00 11/13/24 05:18 50 ML Hydromorphone HCl 0.5 mg Q4HPRN PRN IV 11/12/24 17:15 11/15/24 09:42 0.5 MG Gabapentin 300 mg HS PO 11/12/24 22:00 11/14/24 21:55 300 MG Famotidine 10 mg EOD@2200 IV 11/13/24 22:00 Dextrose/Sodium Chloride 1,000 ml @ 75 mls/hr [id number] IV 11/13/24 10:30 11/15/24 02:30 75 MLS/HR Ceftriaxone Sodium 50 ml @ 100 mls/hr DAILY@09 IV 11/14/24 09:00 11/14/24 08:49 100 MLS/HR Zirconium Oxide 10 gm DAILY PO 11/15/24 10:00 Examination: GENERAL:Abnormal, CVS:Normal laboratory and microbiology Laboratory Tests 11/14/24 18:01 11/14/24 05:27 Test 11/14/24 05:27 Range/Units Serum Glucose 138 H 74-106 mg/dL Problem List/Assessment/Plan Problem List/Assessment/Plan End-stage renal disease on hemodialysis Chronic diastolic Congestive heart failure Uncontrolled diabetes mellitus Diabetic ketoacidosis Hypotension Hypocalcemia Hyponatremia due to excess H2O Anemia of chronic kidney disease HD today after avf thrombus declot renal diet phos binder epogen Plan discussed with: Patient My Orders My Orders Orders - YOVANI WAYNE MD Procedure Category Date Status Time * Radiologist Consult CONS 11/14/24 Transmitted 15:31 Sodium Zirconium PHA 11/15/24 In Process Cyclosilicate 10:00 Dietary Evaluation Review Comments: 1. follow a Renal Standard diet with 2gNa 3K low Phos with CCHO-60 restriction 2. Consider Calcim supplementation Expected Outcomes/Goals: controlled uremic symdrome, controlled DM, slowly healed wounds. YOVANI WAYNE MD Nov 15, 2024 13:24
[2024-11-15] MEDS: cefTRIAXone 1GM/50ML D5W 50 ML IV ONE (13:40)
[2024-11-15] MEDS: LIDOCAINE 2%HCL (LOCAL ANESTH.) INJ 20ML MDV ONE (13:45)
[2024-11-15] MEDS: MIDAZOLAM HCL 2MG/2ML 2ml VIAL (1mg/ml) ONE (13:49)
[2024-11-15] MEDS: fentaNYL CITRATE 100 MCG/2 ML VL ONE (13:49)
[2024-11-15] MEDS: CATHFLO ACTIVASE (ALTEPLASE) 2 MG VIAL ONE (14:01)
[2024-11-15] MEDS: HEPARIN SODIUM (PORCINE) 5000 UNITS/ML 1ML VIAL ONE (14:44)
--- NOTE | 2024-11-15 15:35 | DVHDSRES ---
Discharge Summary Date of Admission Resident Creating Document: JAMIE BAUTISTA RESIDENT Nov 12, 2024 at 16:57 Date of Discharge: Nov 15, 2024 Admitting Diagnosis Uncontrolled diabetes mellitus and suspected UTI Labs/Diagnostic Data: Laboratory Results Test 11/15/24 08:19 11/14/24 18:01 11/14/24 05:27 11/13/24 19:30 POC Glucose 115 mg/dl (70-106) White Blood Count 6.2 10^3/uL (4.4-10.8) Red Blood Count 3.14 10^6/uL (4.5-5.90) Hemoglobin 10.3 g/dL (13.5-17.5) Hematocrit 31.2 % (41.0-53.0) Mean Corpuscular Volume 99.6 fL (80.0-100.0) Mean Corpuscular Hemoglobin 32.7 pg (28.0-32.0) Mean Corpuscular Hemoglobin Concent 32.9 g/dL (32.0-36.0) Red Cell Distribution Width 15.1 % (11.8-14.3) Platelet Count 161 10^3/uL (140-450) Mean Platelet Volume 8.5 fL (6.9-10.8) Neutrophils (%) (Auto) 80.8 % (37.0-80.0) Lymphocytes (%) (Auto) 6.2 % (10.0-50.0) Monocytes (%) (Auto) 11.6 % (0.0-12.0) Eosinophils (%) (Auto) 1.1 % (0.0-7.0) Basophils (%) (Auto) 0.3 % (0.0-2.0) Neutrophils # (Auto) 5.0 10 ^3/uL (1.6-8.6) Lymphocytes # (Auto) 0.4 10 ^3/uL (0.4-5.4) Monocytes # (Auto) 0.7 10 ^3/uL (0-1.3) Eosinophils # (Auto) 0.1 10 ^3/uL (0-0.8) Basophils # (Auto) 0 10 ^3/uL (0-0.2) Nucleated Red Blood Cells 0.0 % Prothrombin Time 11.9 sec (9.3-11.8) Prothrombin Time INR 1.13 (0.9-1.15) Activated Partial Thromboplast Time 37.0 SEC (24.5-34.5) Sodium Level 129 mmol/L (136-145) Potassium Level 4.9 mmol/L (3.5-5.1) Chloride Level 96 mmol/L (98-107) Carbon Dioxide Level 23 mmol/L (20-31) Anion Gap 10 (5-15) Blood Urea Nitrogen 54 mg/dL (9-23) Creatinine 12.01 mg/dL (0.700-1.30) Glomerular Filtration Rate Calc 5 mL/min (>90) BUN/Creatinine Ratio 4.5 (10.0-20.0) Serum Glucose 138 mg/dL (74-106) Calcium Level 5.6 mg/dL (8.7-10.4) Magnesium Level 2.1 mg/dL (1.6-2.6) Influenza Type A Antigen Negative (Negative) Influenza Type B Antigen Negative (Negative) SARS-CoV-2 Antigen (Rapid) Negative (NEGATIVE) Test 11/13/24 18:14 11/13/24 15:50 11/13/24 13:10 11/13/24 04:38 Beta-Hydroxybutyric Acid 0.068 mmol/L (< 0.4) Urine Color Dark-brown (Yellow) Urine Clarity Ex.turbid (Clear) Urine pH 7.0 (5.0-9.0) Urine Specific [place] 1.040 (1.001-1.035) Urine Protein 2+ (Negative) Urine Ketones Negative (Negative) Urine Blood 2+ /uL (Negative) Urine Nitrite Negative (Negative) Urine Bilirubin Negative (Negative) Urine Urobilinogen Normal mg/dL (Negative) Urine Leukocyte Esterase 3+ /uL (Negative) Urine RBC 63 /hpf (0 - 3) Urine WBC 3302 /hpf (0 - 3) Urine WBC Clumps Present /hpf (None Seen) Urine Squamous Epithelial Cells None seen /hpf (<5) Urine Bacteria None seen /hpf (None Seen) Urine Glucose Trace mg/dL (Normal) Urine Opiates Screen Neg (NEGATIVE) Urine Fentanyl Screen Neg (NEGATIVE) Urine Barbiturates Screen Neg (NEGATIVE) Urine Phencyclidine Screen Neg (NEGATIVE) Urine Amphetamines Screen Neg (NEGATIVE) Urine Benzodiazepines Screen Neg (NEGATIVE) Urine Cocaine Screen Neg (NEGATIVE) Urine Cannabinoids Screen Pos (NEGATIVE) Plasma/Serum Blood Alcohol < 3.0 mg/dL (<10) Hepatitis A IgM Antibody Negative Hepatitis B Surface Antigen Negative (Negative) Hepatitis B Core IgM Antibody Negative (Negative) Hepatitis C Antibody Negative (Negative) Phosphorus Level 3.9 mg/dL (2.4-5.1) Total Bilirubin < 0.2 mg/dL (0.2-1.0) Aspartate Amino Transferase (AST) 8 U/L (13-40) Alanine Aminotransferase (ALT) < 9 U/L (7-40) Alkaline Phosphatase 77 U/L (46-116) B-Type Natriuretic Peptide 349.37 pg/mL (0-100) Total Protein 7.4 g/dL (5.7-8.2) Albumin 3.6 g/dL (3.2-4.8) Vitamin D 25-Hydroxy 21.9 ng/mL (30.0-100) Thyroid Stimulating Hormone (TSH) 3.07 uIU/mL (0.55-4.78) Parathyroid Hormone (Intact) 147.3 pg/mL (18.4-80.1) Test 11/12/24 17:50 11/12/24 10:12 Lactic Acid Level 1.0 mmol/L (0.4-2.0) Hemoglobin A1c 8.4 % A1C (<5.7) Other Laboratory Tests 11/14/24 18:01 11/14/24 05:27 Brief Hx & Hospital Course: Patient is 54 years old male with past medical history of hypertension, diabetes mellitus type 2, hyperlipidemia, peripheral artery disease, PUD, history of osteomyelitis of the left leg, status post left below-knee amputation due to completion from osteomyelitis and diabetes complication came with a complaint of back pain and dysuria. As per patient patient has been having dysuria when pain for last 4-5 days. Patient reported that he does not usually Pee but lately he has been making some urine and it hurts when he pees. Reported back pain for last 2 days, 10/10, sharp in nature. Also endorsed nausea and vomiting 7 times, no blood. Did not show any, chest pain, shortness of breath, dysarthria or change in vision. Initial lab workup revealed WBC 8.6, hemoglobin 10.3, platelet 174, sodium 129, potassium 4.5, serum creatinine 11.49, GFR is 0 5, POC for 32, lactic acid 1, HGB A1c 8.4, anion gap 11, calcium 6.3, the hydroxybutyrate 0.93. BNP 349.37, CXR no acute cardiopulmonary disease.X-ray lumbar spine and thoracic spine negative for acute fracture. Patient tested negative for COVID-19 and influenza type A and B. UDS positive for cannabinoids. Urinalysis revealed leukocyte esterase 3+, RBC 63, WBC 3302 Patient was treated for UTI with IV antibiotic ceftriaxone 1 g IV daily. Patient also had clogged up fistula for hemodialysis. Patient had fistulogram for decannulation. Patient also had hemodialysis before discharge. Patient is clinically improving. Patient is being discharged home with oral antibiotic. Patient's meds were sent to the pharmacy electronically. Patient was hemodynamically stable on discharge. General examination- patient awake, conversant, cooperative HEENT- PEERLA, no acute nasal discharge Cardiovascular- S1-S2 audible, rate and rhythm regular, no murmur Respiratory- CTAB, no wheeze or rhonchi Gastrointestinal-nontender, bowel sound+. Nondistended Musculoskeletal-no acute joint swelling or tenderness or redness# Lower extremity- left below-knee amputation Neurological- cranial nerves intact, no acute dysarthria or dysphagia Psychiatry- denies depression or SI or HI Skin- no acute rash or purpura Operations or Procedures DIAGNOSTIC IMAGING Diagnostic Imaging Report : [id number] Signed PATIENT: JENNIFER GUZMAN CACCT: [id number] UNIT: [id number] : 1970 LOC: ER ROOM / BED: / AGE / SEX: 54 / M ADM STATUS: REG ER SERVICE 0 ORDERING PHYSICIAN: THOMAS WEEKS MD PROCEDURE(s): CXRP - CHEST PORTABLE REASON: sob ORDER NUMBER(s): [id number], ACCESSION NUMBER(s): [id number] CHEST RADIOGRAPH Indication: sob Technique: Single frontal view of the chest was obtained Comparison: XY CHEST XRAY 1 VIEW on DOS: 06/17/24, XY CHEST PORTABLE on DOS: 06/15/24, CHEST PORTABLE on DOS: 03/28/22, CXRP on DOS: 03/28/22 FINDINGS: Lines and Tubes: None Lungs: No focal consolidation. Pleura: No effusion. No pneumothorax. Cardiomediastinal contours: Unremarkable Bones: No acute osseous abnormality. IMPRESSION: No acute cardiopulmonary disease. ATED BY: REEMA KEBEDE MD DICTATED DATE/TIME: 11/12/24 1034 SIGNED BY: REEMA KEBEDE MD SIGNED DATE/TIME: 11/12/24 1034 CC: DIAGNOSTIC IMAGING Diagnostic Imaging Report : [id number] Signed PATIENT: JENNIFER GUZMAN CACCT: [id number] UNIT: [id number] : 1970 LOC: TELE ROOM / BED: [address] [place] [address] AGE / SEX: 54 / M ADM STATUS: ADM IN SERVICE 1248 ORDERING PHYSICIAN: JAMIE BAUTISTA PROCEDURE(s): LUMB2 - LUMBAR SPINE 3 VIEW REASON: back pain ORDER NUMBER(s): [id number], ACCESSION NUMBER(s): [id number] EXAM: XY LUMBAR SPINE 3 VIEW INDICATION: back pain COMPARISON: None TECHNIQUE: 2 views of the thoracic and lumbar spine were obtained. Findings: There is no evidence of an acute fracture, spondylolysis, or spondylolisthesis. The vertebral body heights and disc spaces are well-maintained. No blastic or lytic lesions are appreciated. No radiopaque foreign bodies. No superficial soft tissue abnormalities. Impression: 1. No acute osseous abnormality. ATED BY: JENI YOUNG DO DICTATED DATE/TIME: 11/13/24 1426 SIGNED BY: JENI YOUNG DO SIGNED DATE/TIME: 11/13/24 1426 CC: DIAGNOSTIC IMAGING Diagnostic Imaging Report : [id number] Signed PATIENT: JENNIFER GUZMAN CACCT: [id number] UNIT: [id number] : 1970 LOC: TELE ROOM / BED: [address] [place] [address] AGE / SEX: 54 / M ADM STATUS: ADM IN SERVICE 1248 ORDERING PHYSICIAN: JAMIE BAUTISTA PROCEDURE(s): THOSP - SPINE THORACIC 2VIEW REASON: back pain ORDER NUMBER(s): [id number], ACCESSION NUMBER(s): [id number] EXAM: XY SPINE THORACIC 2VIEW INDICATION: back pain COMPARISON: None TECHNIQUE: 2 views of the thoracic spine were obtained. Findings: There is no evidence of an acute fracture, spondylolysis, or spondylolisthesis. The vertebral body heights and disc spaces are well-maintained. No blastic or lytic lesions are appreciated. No radiopaque foreign bodies. No superficial soft tissue abnormalities. Impression: 1. No acute osseous abnormality. ATED BY: JENI YOUNG DO DICTATED DATE/TIME: 11/13/24 143 SIGNED BY: JENI YOUNG DO SIGNED DATE/TIME: 11/13/241429 CC: DIAGNOSTIC IMAGING Diagnostic Imaging Report : [id number] Signed PATIENT: JENNIFER GUZMAN CACCT: [id number] UNIT: [id number] : 1970 [facility]GE / SEX: 54 / M ADM STATUS: ADM IN SERVICE 1130 ORDERING PHYSICIAN: FAIZAN ZAMORA MD PROCEDURE(s): RUEAD - Rt Upper Ext Art Duplex REASON: EVALUATE FISTULA ORDER NUMBER(s): [id number], ACCESSION NUMBER(s): [id number] Right Upper Extremity Arterial Duplex Clinical History: EVALUATE FISTULA Comparison: None Technique: Duplex Doppler evaluation including color Doppler and spectral/pulsed waveform analysis of the upper extremity arteries was performed. Findings: RIGHT: Peak systolic velocities are as follows: Subclavian 86 cm/s Axillary 33 cm/s Brachial 38 cm/s Prox Radial 91 cm/s Prox Ulnar 79 cm/s Right upper extremity arteriovenous fistula is present. Inflow artery is patent. Thrombus is present in the basilic vein outflow. IMPRESSION: Right upper extremity arteriovenous fistula is present. Inflow artery is patent. Thrombus is present in the basilic vein outflow. REFERENCE VALUES, [facility] ([facility]) vascular Imaging Lab Criteria: Peak systolic velocity ranges (in cm/sec) are as follows: <150 cm/s - <20 % stenosis 150-200 cm/s - 20-49% stenosis 200-300 cm/s - 50-75% stenosis >300 cm/s -> 75% stenosis ATED BY: SEBASTIAN LISA MD DICTATED DATE/TIME: 11/14/24 1337 SIGNED BY: SEBASTIAN LISA MD SIGNED DATE/TIME: 11/14/24 1337 CC: Condition at Discharge: Stable Final Diagnosis/Problems List # Uncontrolled diabetes mellitus # Suspected UTI # ESRD on dialysis Thursday/Thursday/Thursday # status post fistulogram for clogged up fistula, status post recanalization # Chronic diastolic heart failure # Anemia likely anemia of chronic disease # Episode of hypoglycemia # uncontrolled hypertension # elevated BNP likely due to CKD # back pain under evaluation- # peripheral artery disease # PUD # hypoglycemia # hypotension Discharge Disposition: Home Discharge Instruct/Medications Diet: Renal Activity: No Restrictions, As Tolerated Follow Up/Referral: Please follow up with the primary care physician in 1 week Follow up with your meeting specialist in 2-3 weeks Please follow up with the scheduled for hemodialysis Renal diet Discharge Statement: "Patient was advised to return to the ER or call 911 if any headaches, dizziness, shortness of breath, chest pain, abdominal pain, bleeding, fevers, or worsening of medical condition. Patient was counseled about treatment plan, medications, possible side effects, patientverbalized understanding. All questions were answered to the best of my ability. This discharge took greater then 30 minutes in planning, reviewing documentation, counseling the patient, and discussing with other team members." ASSESSMENT ASSESSMENT Assessment Date of Service: Nov 15, 2024 Billing Provider: PEDRO ÁLVAREZ MD Common Visit Codes: 36177-NIS/OBS DISCH DAY >30min JAMIE BAUTISTA RESIDENT Nov 15, 2024 15:35 PEDRO ÁLVAREZ MD Nov 15, 2024 20:44
[2024-11-15] MEDS ORDERED: LEVO500T91 PO (15:40)
[2024-11-15] MEDS ORDERED: HEPARIN SODIUM (PORCINE) 5000 UNITS/ML 1ML VIAL IV ONE (16:00)
--- NOTE | 2024-11-15 16:36 | DVH ---
XY FISTULA /SINUS TRACT, HISTORY: clogged up fistula for Hemodialysis. Here for Declot of the left arm AVF. PROCEDURE: Informed consent was obtained. The patient was positioned supine on the fluoroscopic table and IV sedation administered. Ultrasound of the AVF was performed and the optimal access site chosen ; the overlying skin was then prepped with chlorhexidine which was allowed to dry and draped in steri le fashion. Time out was performed. The outflow basilic vein was accessed in antegrade fashion with a micropuncture set with ultrasound guidance. A 7 Filipino vascular sheath was placed, and the occlused basilic vein was crossed with a wire/ [place] catheter. Central venograms were performed in AP project ion. A pull back venogram was performed to visualize the proximal portion of the thrombus. 2 mg of tP A was then injected into thrombus back to the sheath. An amplatz wire was then placed through the she ath into the IVC. A 5 mm x 4 cm balloon was used to angioplasty and sweep the outflow vein. 4000 unit s of heparin was given IV. Next, the outflow basilic vein was accessed in retrograde fashion with a micropuncture set with ultrasound guidance. A 7 Filipino vascular sheath was placed. Using a glide adv antage wire and Ja catheter, the arterial anastomosis was accessed and the catheter placed in the b rachial artery. An arteriogram was then performed. Using a 4 mm balloon, the arterial anastomsis was angioplastied. Then, a 7 mm x 4 cm balloon was used in the antegrade sheath and angioplastied. Good f low of blood was seen through the sheath. A completion fistulogram was performed. The sheath was anastasiya trish and hemostasis achieved with manual compression using purse string suture. No immediate complicat ion was identified. DAP 487 FLUOROSCOPY TIME: 19.3 minutes. CONTRAST USED: 50 mL . SEDATION: Dr. Lizz Green was personally responsible for the administration of moderate sedation during the procedure performed, including the use of an independent trained observer who had no other duties during the procedure. The drugs utilized were IV fentanyl and versed (see nursing log for details). The total time of supervision by the attending physician was approximately 115 minutes. FINDINGS: Completely occluded left arm brachiobasilic arteriovenous fistula with thrombus. Patent daly tral veins. Declot of the fistula using tPa and Balloon angioplasty. Improved flow and patency of the AVF with a pulse able to be palpated at the end of the procedure. IMPRESSION: Completely occluded left arm brachiobasilic arteriovenous fistula with thrombus. Declot of the fistula using tPa and Balloon angioplasty. Improved flow and patency of the AVF with a pulse able to be palpated at the end of the procedure. PLAN: Resume hemodialysis tomorrow mid day. Please remove purse string sutures at next dialysis sessi on
[2024-11-15 19:18] LABS: Basophils # (auto) 0 10 ^3/uL (0-0.2); Basophils % (auto) 0.6 % (0.0-2.0); Eosinophils # (auto) 0.1 10 ^3/uL (0-0.8); Eosinophils % (auto) 1.1 % (0.0-7.0); Hematocrit 37.7 % (41.0-53.0); Hemoglobin 12.2 g/dL (13.5-17.5); Lymphocytes # (auto) 0.5 10 ^3/uL (0.4-5.4); Lymphocytes % (auto) 7.8 % (10.0-50.0); Mean Corpuscular Hemoglobin 32.5 pg (28.0-32.0); Mean Corpuscular Hgb Conc. 32.5 g/dL (32.0-36.0); Monocytes # (auto) 0.9 10 ^3/uL (0-1.3); Monocytes % (auto) 12.5 % (0.0-12.0); Neutrophils # (auto) 5.5 10 ^3/uL (1.6-8.6); Nucleated Red Blood Cells % 0.1 %; Platelet Count (auto) 159 10^3/uL (140-450); Red Blood Cells 3.77 10^6/uL (4.5-5.90); Red Cell Distribution Width 15.4 % (11.8-14.3)
[2024-11-15 19:34] LABS: INR 1.12 (0.9-1.15); Partial Thromboplastin Time 37.1 SEC (24.5-34.5); Prothrombin Time 11.8 sec (9.3-11.8)
[2024-11-15 19:37] LABS: Alkaline Phosphatase 84 U/L (46-116); Anion Gap 10 (5-15); BUN/Creatinine Ratio 4.6 (10.0-20.0); Carbon Dioxide 21 mmol/L (20-31); Magnesium 2.1 mg/dL (1.6-2.6); Total Protein 6.9 g/dL (5.7-8.2)
[2024-11-15 19:51] LABS: Blood Urea Nitrogen 60 mg/dL (9-23); Chloride 97 mmol/L (98-107); Glucose 148 mg/dL (74-106); Sodium 128 mmol/L (136-145)
[2024-11-15 19:52] LABS: Alanine Aminotransferase < 9 U/L (7-40); Albumin 3.1 g/dL (3.2-4.8); Aspartate Aminotransferase 8 U/L (13-40); Bilirubin, Total < 0.2 mg/dL (0.2-1.0)
[2024-11-15 19:54] LABS: Calcium 5.6 mg/dL (8.7-10.4); Potassium 6.6 mmol/L (3.5-5.1)
[2024-11-15] MEDS: HEPARIN DRIP/D5W 100UNITS/ML 250 ML IV SCH (23:26)
[2024-11-16] VITALS (10 sets, daily range): BP systolic 106–155; BP diastolic 61–93; PULSE 79–93; RESP 16–21; TEMP 97.2–99.5; O2SAT 95–100
[2024-11-16] MEDS: ALBUTEROL SULF 2.5 MG/0.5ML(0.5%) NEB SOLN NEB ONE (00:54)
[2024-11-16] MEDS: CALCIUM GLUC 1,000mg/50ml-NS 50 ML IV ONE ×2 (01:30→07:52)
[2024-11-16] MEDS: DEXTROSE (50%) 50ML SYRG IV ONE (02:00)
[2024-11-16] MEDS: InsuLIN REG 1unit/0.01ml Soln (100units/ml) IV ONE (02:02)
[2024-11-16] MEDS: SODIUM ZIRCONIUM CYCL 10 GM PAK PO ONE (02:11)
[2024-11-16] MEDS: SODIUM BICARB 8.4% 50Meq/50ml SYR INJ IV ONE (02:11)
[2024-11-16 06:00] LABS: Basophils # (auto) 0 10 ^3/uL (0-0.2); Basophils % (auto) 0.4 % (0.0-2.0); Eosinophils # (auto) 0 10 ^3/uL (0-0.8); Eosinophils % (auto) 0.3 % (0.0-7.0); Hemoglobin 10.8 g/dL (13.5-17.5); Lymphocytes # (auto) 0.4 10 ^3/uL (0.4-5.4); Lymphocytes % (auto) 4.8 % (10.0-50.0); Mean Corpuscular Hemoglobin 32.8 pg (28.0-32.0); Mean Corpuscular Hgb Conc. 32.8 g/dL (32.0-36.0); Mean Corpuscular Volume 99.8 fL (80.0-100.0); Monocytes # (auto) 0.9 10 ^3/uL (0-1.3); Monocytes % (auto) 11.6 % (0.0-12.0); Neutrophils # (auto) 6.6 10 ^3/uL (1.6-8.6); Neutrophils % (auto) 82.9 % (37.0-80.0); Platelet Count (auto) 135 10^3/uL (140-450); Red Cell Distribution Width 15.2 % (11.8-14.3); White Blood Cell 7.9 10^3/uL (4.4-10.8)
[2024-11-16 06:29] LABS: INR 1.16 (0.9-1.15); Prothrombin Time 12.2 sec (9.3-11.8)
[2024-11-16 07:07] LABS: Partial Thromboplastin Time > 139.0 SEC (24.5-34.5)
[2024-11-16 08:00] LABS: Alkaline Phosphatase 67 U/L (46-116); Anion Gap 11 (5-15); BUN/Creatinine Ratio 4.3 (10.0-20.0); Carbon Dioxide 21 mmol/L (20-31); Glucose 95 mg/dL (74-106)
[2024-11-16 08:01] LABS: Total Protein 6.2 g/dL (5.7-8.2)
[2024-11-16 08:02] LABS: Blood Urea Nitrogen 59 mg/dL (9-23); Chloride 98 mmol/L (98-107); Potassium 5.2 mmol/L (3.5-5.1); Sodium 130 mmol/L (136-145)
[2024-11-16 08:03] LABS: Alanine Aminotransferase < 9 U/L (7-40); Albumin 2.8 g/dL (3.2-4.8); Aspartate Aminotransferase < 8 U/L (13-40); Bilirubin, Total < 0.2 mg/dL (0.2-1.0)
[2024-11-16 08:06] LABS: Calcium 5.8 mg/dL (8.7-10.4)
[2024-11-16] MEDS: HEPARIN DRIP/D5W 100UNITS/ML 250 ML IV SCH ×2 (08:50→18:27)
--- NOTE | 2024-11-16 11:24 | DVHPN2 ---
Progress Note Date Seen: Nov 16, 2024 Medical Necessity Reason Pt with a Central, PICC or Fol: No Subjective Patient reports: No new complaints Other Systems: Patient seen and examined by myself today in follow-up Objective vital signs Vital Sign Date Time Temp Pulse Resp B/P (MAP) Pulse Ox O2 Delivery O2 Flow Rate FiO2 11/16/24 10:00 100 Room Air* 0 21 11/16/24 09:00 97.3 89 16 131/63 (85) 97.3 Total Intake and Output 11/15/24 11/15/24 11/16/24 15:00 23:00 07:00 Intake Total 0 ml 0 ml Balance 0 ml 0 ml medications Current Medications Medications Dose Ordered Sig/Marc Route Start Time Stop Time Status Last Admin Dose Admin Calcium Acetate 667 mg TID PO 11/12/24 22:00 11/16/24 06:25 667 MG Paroxetine HCl 20 mg DAILY PO 11/13/24 10:00 11/16/24 08:56 20 MG Amlodipine Besylate 10 mg DAILYPRN PO 11/12/24 17:55 Hold Carvedilol 6.25 mg DAILY PO 11/12/24 22:00 Hold Polyethylene Glycol 17 gm DAILY PO 11/13/24 10:00 Hold Ondansetron HCl 4 mg Q4HP PRN IV 11/12/24 17:00 11/12/24 18:17 4 MG Acetaminophen 650 mg Q6HP PRN PO 11/12/24 17:00 Insulin Glargine 15 units HS SC 11/12/24 22:00 Hold 11/12/24 22:30 15 UNITS Diagnostic Test (Pha) 1 strip IQ4HR 11/12/24 20:00 11/16/24 10:49 1 STRIP Insulin Human Regular IQ4HR SC 11/12/24 20:00 11/15/24 19:47 2 UNITS Dextrose 50 ml UD PRN IV 11/12/24 17:00 11/16/24 09:05 50 ML Hydromorphone HCl 0.5 mg Q4HPRN PRN IV 11/12/24 17:15 11/16/24 04:50 0.5 MG Gabapentin 300 mg HS PO 11/12/24 22:00 11/15/24 23:27 300 MG Famotidine 10 mg EOD@2200 IV 11/13/24 22:00 Ceftriaxone Sodium 50 ml @ 100 mls/hr DAILY@09 IV 11/14/24 09:00 11/14/24 08:49 100 MLS/HR Zirconium Oxide 10 gm DAILY PO 11/15/24 10:00 11/16/24 08:56 10 GM Heparin Sodium/ Dextrose 250 ml @ 14 mls/hr [id number] IV 11/16/24 08:30 11/16/24 08:50 14 MLS/HR Examination: LUNGS:Normal, CVS:Normal, MSK:Normal laboratory and microbiology Laboratory Tests 11/16/24 05:29 Test 11/16/24 05:29 Range/Units Serum Glucose 95 74-106 mg/dL Problem List/Assessment/Plan Problem List/Assessment/Plan End-stage renal disease on hemodialysis Chronic diastolic Congestive heart failure Uncontrolled diabetes mellitus Diabetic ketoacidosis Hypotension Hypocalcemia Hyponatremia due to excess H2O Anemia of chronic kidney disease Recommendations Hemodialysis tomorrow after AV fistula declotting renal diet phos binder Resume home medication We will continue to follow Plan discussed with: Patient Dietary Evaluation Review Comments: 1. follow a Renal Standard diet with 2gNa 3K low Phos with CCHO-60 restriction 2. Consider Calcim supplementation Expected Outcomes/Goals: controlled uremic symdrome, controlled DM, slowly healed wounds. JOSIAH CANELA MD Nov 16, 2024 11:24
[2024-11-16] MEDS: ACETAMINOPHEN 325 MG TAB PO PRN (15:29)
[2024-11-16 17:18] LABS: INR 1.15 (0.9-1.15); Prothrombin Time 12.1 sec (9.3-11.8)
[2024-11-16 17:21] LABS: Partial Thromboplastin Time 123.5 SEC (24.5-34.5)
--- NOTE | 2024-11-16 17:28 | DVHPNRES ---
Progress Note Date Seen: Nov 16, 2024 Resident Creating Document: JAMIE BAUTISTA RESIDENT Medical Necessity Reason Pt with a Central, PICC or Fol: No Subjective Review of Systems Patient is 54 years old male with past medical history of hypertension, diabetes mellitus type 2, hyperlipidemia, peripheral artery disease, PUD, history of osteomyelitis of the left leg, status post left below-knee amputation due to completion from osteomyelitis and diabetes complication came with a complaint of back pain and dysuria. As per patient patient has been having dysuria when pain for last 4-5 days. Patient reported that he does not usually Pee but lately he has been making some urine and it hurts when he pees. Reported back pain for last 2 days, 09/01, sharp in nature. Also endorsed nausea and vomiting 7 times, no blood. Did not show any, chest pain, shortness of breath, dysarthria or change in vision. Initial lab workup revealed WBC 8.6, hemoglobin 10.3, platelet 174, sodium 129, potassium 4.5, serum creatinine 11.49, GFR is 0 5, POC for 32, lactic acid 1, HGB A1c 8.4, anion gap 11, calcium 6.3, the hydroxybutyrate 0.93. BNP 349.37, CXR no acute cardiopulmonary disease.X-ray lumbar spine and thoracic spine negative for acute fracture. Patient tested negative for COVID-19 and influenza type A and B. UDS positive for cannabinoids. Urinalysis revealed leukocyte esterase 3+, RBC 63, WBC 3302 Patient also had clogged up fistula for hemodialysis. Patient had fistulogram for decannulation on 11/15/2024. PMH-hypertension, diabetes mellitus type 2, hyperlipidemia, peripheral artery disease, PUD, history of osteomyelitis of the left leg, status post left below- knee amputation due to completion from osteomyelitis and diabetes complication PSH- below-knee amputation Allergy- Advil, ibuprofen, morphine, norepinephrine, penicillin Personal History/ Social History- smoker, occasional alcoholic, smokes weed, lives with son at home Patient was seen today at the bedside. Patient reports some back pain Cardiovascular- deny acute chest pain or shortness of breath or cough or palpitation Respiratory- denies cough or short of breath or wheezing Gastrointestinal- denies any rectal bleeding, nausea or vomiting Musculoskeletal--tenderness of the lumbar spine+ Neurological- denies acute dysarthria, dysphagia, change in vision Psychiatry- denies depression or SI or HI Skin- denies acute rash or purpura Patient was seen today for clinical evaluation. Labs and chart reviewed. Patient is status post decannulation of the clogged up fistula for hemodialysis. Patient is scheduled for hemodialysis tomorrow morning. Objective vital signs Vital Sign Date Time Temp Pulse Resp B/P (MAP) Pulse Ox O2 Delivery O2 Flow Rate FiO2 11/16/24 13:43 85 16 129/74 11/16/24 13:00 98.1 96 98.1 11/16/24 12:40 Room Air* 0 21 Total Intake and Output 11/15/24 11/15/24 11/16/24 15:00 23:00 07:00 Intake Total 0 ml 0 ml Balance 0 ml 0 ml medications Current Medications Medications Dose Ordered Sig/Marc Route Start Time Stop Time Status Last Admin Dose Admin Calcium Acetate 667 mg TID PO 11/12/24 22:00 11/16/24 15:29 667 MG Paroxetine HCl 20 mg DAILY PO 11/13/24 10:00 11/16/24 08:56 20 MG Amlodipine Besylate 10 mg DAILYPRN PO 11/12/24 17:55 Hold Carvedilol 6.25 mg DAILY PO 11/12/24 22:00 Hold Polyethylene Glycol 17 gm DAILY PO 11/13/24 10:00 Hold Ondansetron HCl 4 mg Q4HP PRN IV 11/12/24 17:00 11/12/24 18:17 4 MG Acetaminophen 650 mg Q6HP PRN PO 11/12/24 17:00 11/16/24 15:29 650 MG Insulin Glargine 15 units HS SC 11/12/24 22:00 Hold 11/12/24 22:30 15 UNITS Diagnostic Test (Pha) 1 strip IQ4HR 11/12/24 20:00 11/16/24 16:18 1 STRIP Insulin Human Regular IQ4HR SC 11/12/24 20:00 11/15/24 19:47 2 UNITS Dextrose 50 ml UD PRN IV 11/12/24 17:00 11/16/24 09:05 50 ML Hydromorphone HCl 0.5 mg Q4HPRN PRN IV 11/12/24 17:15 11/16/24 13:13 0.5 MG Gabapentin 300 mg HS PO 11/12/24 22:00 11/15/24 23:27 300 MG Famotidine 10 mg EOD@2200 IV 11/13/24 22:00 Ceftriaxone Sodium 50 ml @ 100 mls/hr DAILY@09 IV 11/14/24 09:00 11/14/24 08:49 100 MLS/HR Zirconium Oxide 10 gm DAILY PO 11/15/24 10:00 11/16/24 08:56 10 GM Heparin Sodium/ Dextrose 250 ml @ 14 mls/hr [id number] IV 11/16/24 08:30 11/16/24 08:50 14 MLS/HR Examination General examination- patient awake, conversant, cooperative HEENT- PEERLA, no acute nasal discharge Cardiovascular- S1-S2 audible, rate and rhythm regular, no murmur Respiratory- CTAB, no wheeze or rhonchi Gastrointestinal-nontender, bowel sound+. Nondistended Musculoskeletal-no acute joint swelling or tenderness or redness# Lower extremity- left below-knee amputation Neurological- cranial nerves intact, no acute dysarthria or dysphagia Psychiatry- denies depression or SI or HI Skin- no acute rash or purpura laboratory and microbiology Laboratory Tests 11/16/24 05:29 Test 11/16/24 05:29 Range/Units Serum Glucose 95 74-106 mg/dL Problem List/Assessment/Plan Problem List/Assessment/Plan # Uncontrolled diabetes mellitus # UTI # suspected sepsis likely due to UTI # ESRD on dialysis Thursday/Thursday/Thursday # Chronic diastolic congestive heart failure # Anemia likely anemia of chronic disease # Episode of hypoglycemia # uncontrolled hypertension # elevated BNP likely due to CKD # back pain under evaluation- # peripheral artery disease # PUD # hypoglycemia # hypotension #Hypocalcemia #Hyponatremia likely dilutional #Substance Abuse- Cannabinoids # status post clot fistula for the dialysis Initial lab workup revealed WBC 8.6, hemoglobin 10.3, platelet 174, sodium 129, potassium 4.5, serum creatinine 11.49, GFR is 0 5, POC for 32, lactic acid 1, HGB A1c 8.4, anion gap 11, calcium 6.3, the hydroxybutyrate 0.93. BNP 349.37, CXR CXR cardiomegaly X-ray lumbar spine and thoracic spine negative for acute fracture UDS positive for cannabinoids. Patient seen by Nephrology, recommendation reviewed and appreciated. Nephrology recommended hemodialysis today. Continue ceftriaxone 1 g IV daily -insulin sliding scale as prescribed -continue famotidine as prescribed -Lovenox 30 mg subcutaneously daily -continue other medication as prescribed Calcium acetate 667 mg p.o. t.i.d. Continue paroxetine 20 mg daily Continue renal diet Continue hemodialysis as per schedule Goals of care/advance care planning; FULL CODE; discussed with the patient >15 minutes PUD prophylaxis: Famotidine DVT prophylaxis: Lovenox Plan discussed with Dr. Kerr, nursing staff, patient Total time spent on patient evaluation, chart review, assessment and plan, discussion discussion >30 minutes Plan discussed with: Patient Plan discussed with: Patient, Other Dietary Evaluation Review Comments: 1. follow a Renal Standard diet with 2gNa 3K low Phos with CCHO-60 restriction 2. Consider Calcim supplementation Expected Outcomes/Goals: controlled uremic symdrome, controlled DM, slowly healed wounds. Date of Service: Nov 16, 2024 Billing Provider: RYAN KERR MD Common Visit Codes: [id number] INP/OBS CARE(HIGH) JAMIE BAUTISTA RESIDENT Nov 16, 2024 17:28 RYAN KERR MD Nov 17, 2024 11:15
[2024-11-17] VITALS (12 sets, daily range): BP systolic 128–159; BP diastolic 74–98; PULSE 84–100; RESP 12–19; TEMP 97.6–98.1; O2SAT 91–100
[2024-11-17 01:50] LABS: INR 1.13 (0.9-1.15); Prothrombin Time 11.9 sec (9.3-11.8)
[2024-11-17 01:55] LABS: Partial Thromboplastin Time 105.6 SEC (24.5-34.5)
[2024-11-17] MEDS: HEPARIN DRIP/D5W 100UNITS/ML 250 ML IV SCH (03:15)
[2024-11-17 06:34] LABS: Basophils # (auto) 0 10 ^3/uL (0-0.2); Basophils % (auto) 0.5 % (0.0-2.0); Eosinophils # (auto) 0 10 ^3/uL (0-0.8); Eosinophils % (auto) 0.5 % (0.0-7.0); Hematocrit 30.1 % (41.0-53.0); Hemoglobin 9.7 g/dL (13.5-17.5); Lymphocytes # (auto) 0.4 10 ^3/uL (0.4-5.4); Lymphocytes % (auto) 7.8 % (10.0-50.0); Mean Corpuscular Hemoglobin 32.6 pg (28.0-32.0); Mean Corpuscular Hgb Conc. 32.1 g/dL (32.0-36.0); Mean Corpuscular Volume 101.4 fL (80.0-100.0); Monocytes # (auto) 0.6 10 ^3/uL (0-1.3); Monocytes % (auto) 11.7 % (0.0-12.0); Neutrophils # (auto) 4.2 10 ^3/uL (1.6-8.6); Neutrophils % (auto) 79.5 % (37.0-80.0); Nucleated Red Blood Cells % 0.1 %; Platelet Count (auto) 131 10^3/uL (140-450); Red Blood Cells 2.97 10^6/uL (4.5-5.90); Red Cell Distribution Width 15.6 % (11.8-14.3); White Blood Cell 5.3 10^3/uL (4.4-10.8)
[2024-11-17] MEDS: SODIUM CHL 0.9% 1000 ML BAG XX ONE ×2 (07:00→13:30)
[2024-11-17 09:32] LABS: BUN/Creatinine Ratio 4.6 (10.0-20.0)
[2024-11-17 09:33] LABS: Carbon Dioxide 22 mmol/L (20-31)
[2024-11-17 09:34] LABS: Anion Gap 9 (5-15); Calcium 5.8 mg/dL (8.7-10.4); Chloride 95 mmol/L (98-107); Sodium 126 mmol/L (136-145)
[2024-11-17 09:35] LABS: Blood Urea Nitrogen 65 mg/dL (9-23); Glucose 254 mg/dL (74-106)
[2024-11-17 09:39] LABS: INR 1.13 (0.9-1.15); Partial Thromboplastin Time 41.6 SEC (24.5-34.5); Prothrombin Time 11.9 sec (9.3-11.8)
[2024-11-17] MEDS: InsuLIN REG 1unit/0.01ml Soln (100units/ml) IV ONE (10:00)
[2024-11-17] MEDS: FUROSEMIDE 40 MG/4 ML VIAL IV ONE (10:50)
[2024-11-17] MEDS: SODIUM BICARB 8.4% 50Meq/50ml SYR INJ IV ONE (10:50)
[2024-11-17] MEDS: SODIUM ZIRCONIUM CYCL 10 GM PAK PO ONE (10:51)
[2024-11-17] MEDS: CALCIUM GLUC 1,000mg/50ml-NS 50 ML IV ONE (11:23)
--- NOTE | 2024-11-17 13:28 | DVHPN2 ---
Progress Note Date Seen: Nov 17, 2024 Medical Necessity Reason Pt with a Central, PICC or Fol: No Subjective Patient reports: No new complaints Other Systems: Patient seen and examined by myself today in follow-up Patient examined hemodialysis, blood pressure stable Objective vital signs Vital Sign Date Time Temp Pulse Resp B/P (MAP) Pulse Ox O2 Delivery O2 Flow Rate FiO2 11/17/24 10:53 95 18 135/70 11/17/24 09:00 98.0 91 98.0 11/16/24 20:30 Room Air* 0 21 Total Intake and Output 11/16/24 11/16/24 11/17/24 15:00 23:00 07:00 Intake Total 120 ml 792.1 ml 240 ml Balance 120 ml 792.1 ml 240 ml medications Current Medications Medications Dose Ordered Sig/Marc Route Start Time Stop Time Status Last Admin Dose Admin Calcium Acetate 667 mg TID PO 11/12/24 22:00 11/17/24 05:42 667 MG Paroxetine HCl 20 mg DAILY PO 11/13/24 10:00 11/17/24 09:35 20 MG Amlodipine Besylate 10 mg DAILYPRN PO 11/12/24 17:55 Hold Carvedilol 6.25 mg DAILY PO 11/12/24 22:00 Hold Polyethylene Glycol 17 gm DAILY PO 11/13/24 10:00 Hold Ondansetron HCl 4 mg Q4HP PRN IV 11/12/24 17:00 11/12/24 18:17 4 MG Acetaminophen 650 mg Q6HP PRN PO 11/12/24 17:00 11/16/24 15:29 650 MG Diagnostic Test (Pha) 1 strip IQ4HR 11/12/24 20:00 11/17/24 12:00 1 STRIP Insulin Human Regular IQ4HR SC 11/12/24 20:00 11/15/24 19:47 2 UNITS Dextrose 50 ml UD PRN IV 11/12/24 17:00 11/16/24 09:05 50 ML Hydromorphone HCl 0.5 mg Q4HPRN PRN IV 11/12/24 17:15 11/17/24 10:53 0.5 MG Gabapentin 300 mg HS PO 11/12/24 22:00 11/16/24 22:30 300 MG Famotidine 10 mg EOD@2200 IV 11/13/24 22:00 Ceftriaxone Sodium 50 ml @ 100 mls/hr DAILY@09 IV 11/14/24 09:00 11/17/24 09:26 100 MLS/HR Zirconium Oxide 10 gm DAILY PO 11/15/24 10:00 11/17/24 09:35 10 GM Examination: LUNGS:Normal, CVS:Normal, MSK:Normal laboratory and microbiology Laboratory Tests 11/17/24 08:53 11/17/24 05:44 Test 11/17/24 08:53 Range/Units Serum Glucose 254 #H 74-106 mg/dL Problem List/Assessment/Plan Problem List/Assessment/Plan End-stage renal disease on hemodialysis Chronic diastolic Congestive heart failure Uncontrolled diabetes mellitus Diabetic ketoacidosis Hypotension Hypocalcemia Vitamin-D deficiency Hyponatremia due to excess H2O Anemia of chronic kidney disease Nonfunctioning AV graft Status post tunneled hemodialysis catheter Recommendations Continue with UF to 3 L as tolerated Epogen 75874 IV post hemodialysis Using low K bath Ergocalciferol 09263 p.o. q.day renal diet phos binder Resume home medication Patient is cleared for discharge after hemodialysis today follow-up outpatient hemodialysis schedule Plan discussed with: Patient My Orders My Orders Orders - JOSIAH CANELA MD Procedure Category Date Status Time * Radiologist Consult CONS 11/17/24 Transmitted 12:32 Dietary Evaluation Review Comments: 1. follow a Renal Standard diet with 2gNa 3K low Phos with CCHO-60 restriction 2. Consider Calcim supplementation Expected Outcomes/Goals: controlled uremic symdrome, controlled DM, slowly healed wounds. JOSIAH CANELA MD Nov 17, 2024 13:28
[2024-11-17] MEDS: HEPARIN SODIUM (PORCINE) 5000 UNITS/ML 1ML VIAL ONE (14:07)
[2024-11-17] MEDS: HYDROmorphone HCL 2 MG/ML VL/or syr ONE (14:07)
[2024-11-17] MEDS: LIDOCAINE 2%HCL (LOCAL ANESTH.) INJ 20ML MDV ONE (14:08)
[2024-11-17] MEDS: ceFAZolin 1GM/50ML 50 ML IV ONE (14:11)
--- NOTE | 2024-11-17 15:56 | DVH ---
XY Insertion of Venous Cath, HISTORY: TD CATH PLACEMENT PROCEDURE: Informed consent was obtained. The patient was placed supine on the interventional table. 1 gram of Ancef was given IV. A limited localization ultrasound of the right neck base was obtained. The right neck base and upper chest were prepped with chlorhexidine which was allowed to dry and drap ed in the usual sterile fashion. Time out was performed. IV sedation was administered. The skin and t he soft tissues were infiltrated with 1% Lidocaine. With real-time ultrasound guidance, the internal vein was accessed with a micropuncture kit, and an image documenting patency was recorded to PACS. A subcutaneous tunneled tract was created from the right upper chest to the venotomy site. A 14.5 Frenc h [place] Path, 23 cm long hemodialysis catheter was advanced through the tunneled tract. Fluoroscopy was used to advance a guidewire through the internal jugular vein into the inferior vena cava. Following serial dilatation, a 15 [place] peel-away sheath was introduced, though which was adva nced the catheter into the right atrium. The catheter tip position was confirmed with fluoroscopy. Th ere was satisfactory flow in both lumens. The catheter lumens were flushed with saline and heparin wa s left indwelling in the catheter. A post-procedure image of the chest was obtained. The neck incisio n site was closed with a Vicryl suture and dressed sterilely. The catheter was sutured at the skin dash rface and exit site also dressed sterilely. No immediate complication was identified. DAP 101.3 FLUOROSCOPY TIME: 1.2 minutes. SEDATION: Dr. Lizz Green was personally responsible for the administration of moderate sedation during the procedure performed, including the use of an independent trained observer who had no other duties during the procedure. The drugs utilized were IV fentanyl and versed (see nursing log for details). The total time of supervision by the attending physician was approximately 30 minutes. FINDINGS: Widely patent right IJV. Post procedure image demonstrates smooth course of the hemodialysi s catheter with the tip in the right atrium. IMPRESSION: Successful placement of 14.5 [place] Path, 23 cm long hemodialysis catheter through right photography intern al jugular vein. Plan: Please contact IR for removal when no longer needed.
[2024-11-17] MEDS: CALCIUM ACETATE 667 MG CAP PO SCH (17:12)
[2024-11-17] MEDS: ERGOCALCIFEROL 50,000 UNIT(1.25MG) CAP PO SCH (17:12)
--- NOTE | 2024-11-17 19:30 | DVHPNRES ---
Progress Note Date Seen: Nov 17, 2024 Resident Creating Document: JAMIE BAUTISTA RESIDENT Medical Necessity Reason Pt with a Central, PICC or Fol: No Subjective Review of Systems Patient is 54 years old male with past medical history of hypertension, diabetes mellitus type 2, hyperlipidemia, peripheral artery disease, PUD, history of osteomyelitis of the left leg, status post left below-knee amputation due to completion from osteomyelitis and diabetes complication came with a complaint of back pain and dysuria. As per patient patient has been having dysuria when pain for last 4-5 days. Patient reported that he does not usually Pee but lately he has been making some urine and it hurts when he pees. Reported back pain for last 2 days, 09/01, sharp in nature. Also endorsed nausea and vomiting 7 times, no blood. Did not show any, chest pain, shortness of breath, dysarthria or change in vision. Initial lab workup revealed WBC 8.6, hemoglobin 10.3, platelet 174, sodium 129, potassium 4.5, serum creatinine 11.49, GFR is 0 5, POC for 32, lactic acid 1, HGB A1c 8.4, anion gap 11, calcium 6.3, the hydroxybutyrate 0.93. BNP 349.37, CXR no acute cardiopulmonary disease.X-ray lumbar spine and thoracic spine negative for acute fracture. Patient tested negative for COVID-19 and influenza type A and B. UDS positive for cannabinoids. Urinalysis revealed leukocyte esterase 3+, RBC 63, WBC 3302 Patient also had clogged up fistula for hemodialysis. Patient had fistulogram for decannulation on 11/15/2024. PMH-hypertension, diabetes mellitus type 2, hyperlipidemia, peripheral artery disease, PUD, history of osteomyelitis of the left leg, status post left below- knee amputation due to completion from osteomyelitis and diabetes complication PSH- below-knee amputation Allergy- Advil, ibuprofen, morphine, norepinephrine, penicillin Personal History/ Social History- smoker, occasional alcoholic, smokes weed, lives with son at home Patient was seen today at the bedside. Patient reports some back pain Cardiovascular- deny acute chest pain or shortness of breath or cough or palpitation Respiratory- denies cough or short of breath or wheezing Gastrointestinal- denies any rectal bleeding, nausea or vomiting Musculoskeletal--tenderness of the lumbar spine+ Neurological- denies acute dysarthria, dysphagia, change in vision Psychiatry- denies depression or SI or HI Skin- denies acute rash or purpura Patient was seen today for clinical evaluation. Labs and chart reviewed. Patient had hyperkalemia, treated emergently. Patient is noncompliant with treatment. Patient was seen by Nephrology, recommendation reviewed and appreciated. Patient had TD cath done today as dialysis fistula was not properly recanalized. Patient's dialysis in the evening. Objective vital signs Vital Sign Date Time Temp Pulse Resp B/P (MAP) Pulse Ox O2 Delivery O2 Flow Rate FiO2 11/17/24 19:17 86 16 126/67 11/17/24 17:00 97.6 99 97.6 11/17/24 10:10 Room Air 0.0 11/17/24 10:10 21 Total Intake and Output 11/16/24 11/16/24 11/17/24 15:00 23:00 07:00 Intake Total 120 ml 792.1 ml 240 ml Balance 120 ml 792.1 ml 240 ml medications Current Medications Medications Dose Ordered Sig/Marc Route Start Time Stop Time Status Last Admin Dose Admin Paroxetine HCl 20 mg DAILY PO 11/13/24 10:00 11/17/24 09:35 20 MG Amlodipine Besylate 10 mg DAILYPRN PO 11/12/24 17:55 Hold Carvedilol 6.25 mg DAILY PO 11/12/24 22:00 Hold Polyethylene Glycol 17 gm DAILY PO 11/13/24 10:00 Hold Ondansetron HCl 4 mg Q4HP PRN IV 11/12/24 17:00 11/12/24 18:17 4 MG Acetaminophen 650 mg Q6HP PRN PO 11/12/24 17:00 11/16/24 15:29 650 MG Diagnostic Test (Pha) 1 strip IQ4HR 11/12/24 20:00 11/17/24 16:00 1 STRIP Insulin Human Regular IQ4HR SC 11/12/24 20:00 11/15/24 19:47 2 UNITS Dextrose 50 ml UD PRN IV 11/12/24 17:00 11/16/24 09:05 50 ML Hydromorphone HCl 0.5 mg Q4HPRN PRN IV 11/12/24 17:15 11/17/24 19:17 0.5 MG Gabapentin 300 mg HS PO 11/12/24 22:00 11/16/24 22:30 300 MG Famotidine 10 mg EOD@2200 IV 11/13/24 22:00 Ceftriaxone Sodium 50 ml @ 100 mls/hr DAILY@09 IV 11/14/24 09:00 11/17/24 09:26 100 MLS/HR Zirconium Oxide 10 gm DAILY PO 11/15/24 10:00 11/17/24 09:35 10 GM Ergocalciferol 50,000 unit Q7D PO 11/17/24 13:30 11/17/24 17:12 50,000 UNIT Calcium Acetate 667 mg TIDWMEALS PO 11/17/24 18:00 11/17/24 17:12 667 MG Examination General examination- patient awake, conversant, cooperative HEENT- PEERLA, no acute nasal discharge Cardiovascular- S1-S2 audible, rate and rhythm regular, no murmur Respiratory- CTAB, no wheeze or rhonchi Gastrointestinal-nontender, bowel sound+. Nondistended Musculoskeletal-no acute joint swelling or tenderness or redness# Lower extremity- left below-knee amputation Neurological- cranial nerves intact, no acute dysarthria or dysphagia Psychiatry- denies depression or SI or HI Skin- no acute rash or purpura laboratory and microbiology Laboratory Tests 11/17/24 08:53 11/17/24 05:44 Test 11/17/24 08:53 Range/Units Serum Glucose 254 #H 74-106 mg/dL Microbiology Date/Time Source Procedure Growth Status 11/17/24 03:25 Nose MRSA Screen - Final Complete Problem List/Assessment/Plan Problem List/Assessment/Plan # Uncontrolled diabetes mellitus # UTI # suspected sepsis likely due to UTI # ESRD on dialysis Thursday/Thursday/Thursday # Chronic diastolic congestive heart failure # Anemia likely anemia of chronic disease # Episode of hypoglycemia # uncontrolled hypertension # elevated BNP likely due to CKD # back pain under evaluation- # peripheral artery disease # PUD # hypoglycemia # hyperkalemia-treated emergently # hypotension #Hypocalcemia #Hyponatremia likely dilutional #Substance Abuse- Cannabinoids # status post clot fistula for the dialysis Initial lab workup revealed WBC 8.6, hemoglobin 10.3, platelet 174, sodium 129, potassium 4.5, serum creatinine 11.49, GFR is 0 5, POC for 32, lactic acid 1, HGB A1c 8.4, anion gap 11, calcium 6.3, the hydroxybutyrate 0.93. BNP 349.37, CXR CXR cardiomegaly X-ray lumbar spine and thoracic spine negative for acute fracture UDS positive for cannabinoids. Patient seen by Nephrology, recommendation reviewed and appreciated. Nephrology recommended hemodialysis today. Continue ceftriaxone 1 g IV daily -insulin sliding scale as prescribed -continue famotidine as prescribed -Lovenox 30 mg subcutaneously daily -continue other medication as prescribed Calcium acetate 667 mg p.o. t.i.d. Continue paroxetine 20 mg daily Retract as prescribed Continue renal diet Continue hemodialysis as per schedule Goals of care/advance care planning; FULL CODE; discussed with the patient >15 minutes PUD prophylaxis: Famotidine DVT prophylaxis: Lovenox Plan discussed with Dr. Kerr, nursing staff, patient Total time spent on patient evaluation, chart review, assessment and plan, discussion discussion >30 minutes Plan discussed with: Patient Plan discussed with: Patient, Other (RN) My Orders My Orders Orders - JAMIE BAUTISTA Procedure Category Date Status Time Blood Culture JOSE 11/17/24 Uncollected 03:11 Electrocardigram EKG 11/17/24 Logged 09:58 Potassium LAB 11/17/24 Logged 13:58 Insertion Of Venous XY 11/17/24 Resulted Cath 14:39 * Premix Operator Concentrate CONS 11/17/24 Transmitted Consult Dietary Evaluation Review Comments: 1. follow a Renal Standard diet with 2gNa 3K low Phos with CCHO-60 restriction 2. Consider Calcim supplementation Expected Outcomes/Goals: controlled uremic symdrome, controlled DM, slowly healed wounds. Date of Service: Nov 17, 2024 Billing Provider: RYAN KERR MD Common Visit Codes: [id number] INP/OBS CARE(HIGH) JAMIE BAUTISTA Nov 17, 2024 19:30 RYAN KERR MD Nov 18, 2024 08:47
[2024-11-17] MEDS ORDERED: EPOETIN ALFA-EPBX 4,000 UNIT/ML VIAL SC ONE (21:00)
[2024-11-17] MEDS: EPOETIN ALFA-EPBX 10,000 UNIT/1ML VIAL SC ONE (21:00)
[2024-11-18] VITALS (10 sets, daily range): BP systolic 103–167; BP diastolic 42–91; PULSE 56–116; RESP 15–20; TEMP 97.4–98.4; O2SAT 94–100
[2024-11-18] MEDS: hydrALAZINE HCL 20 MG/ML VL IV ONE (06:45)
[2024-11-18 06:54] LABS: Basophils # (auto) 0 10 ^3/uL (0-0.2); Basophils % (auto) 0.9 % (0.0-2.0); Eosinophils # (auto) 0 10 ^3/uL (0-0.8); Eosinophils % (auto) 1.1 % (0.0-7.0); Hematocrit 28.2 % (41.0-53.0); Hemoglobin 9.2 g/dL (13.5-17.5); Lymphocytes # (auto) 0.4 10 ^3/uL (0.4-5.4); Lymphocytes % (auto) 9.1 % (10.0-50.0); Mean Corpuscular Hemoglobin 32.3 pg (28.0-32.0); Mean Corpuscular Hgb Conc. 32.8 g/dL (32.0-36.0); Mean Corpuscular Volume 98.3 fL (80.0-100.0); Monocytes # (auto) 0.6 10 ^3/uL (0-1.3); Monocytes % (auto) 13.4 % (0.0-12.0); Neutrophils # (auto) 3.3 10 ^3/uL (1.6-8.6); Neutrophils % (auto) 75.5 % (37.0-80.0); Nucleated Red Blood Cells % 0.1 %; Platelet Count (auto) 130 10^3/uL (140-450); Red Blood Cells 2.86 10^6/uL (4.5-5.90); Red Cell Distribution Width 14.8 % (11.8-14.3); White Blood Cell 4.4 10^3/uL (4.4-10.8)
[2024-11-18 07:11] LABS: Alkaline Phosphatase 74 U/L (46-116); Anion Gap 8 (5-15); Carbon Dioxide 26 mmol/L (20-31); Glucose 103 mg/dL (74-106); Magnesium 2.2 mg/dL (1.6-2.6)
[2024-11-18 07:12] LABS: Total Protein 6.5 g/dL (5.7-8.2)
[2024-11-18 07:13] LABS: Sodium 131 mmol/L (136-145)
[2024-11-18 07:14] LABS: Alanine Aminotransferase < 9 U/L (7-40); Albumin 2.9 g/dL (3.2-4.8); Aspartate Aminotransferase 9 U/L (13-40); Bilirubin, Total < 0.2 mg/dL (0.2-1.0); Blood Urea Nitrogen 46 mg/dL (9-23); Calcium 6.5 mg/dL (8.7-10.4); Chloride 97 mmol/L (98-107)
[2024-11-18 07:16] LABS: Potassium 5.6 mmol/L (3.5-5.1)
[2024-11-18 09:48] LABS: Potassium 7.3 mmol/L (3.5-5.1)
[2024-11-18] MEDS: CARVEDILOL 3.125 MG TAB PO SCH (09:56)
[2024-11-18] MEDS: SODIUM BICARB 8.4% 50Meq/50ml SYR INJ IV ONE (14:15)
[2024-11-18] MEDS: InsuLIN REG 1unit/0.01ml Soln (100units/ml) IV ONE (14:15)
[2024-11-18] MEDS: CALCIUM GLUC 1,000mg/50ml-NS 50 ML IV ONE (14:15)
[2024-11-18] MEDS: SODIUM ZIRCONIUM CYCL 10 GM PAK PO ONE (14:15)
[2024-11-18] MEDS: ALBUTEROL SULF 2.5 MG/0.5ML(0.5%) NEB SOLN NEB ONE (16:23)
--- NOTE | 2024-11-18 19:18 | DVHPNRES ---
Progress Note Date Seen: Nov 18, 2024 Resident Creating Document: JAMIE BAUTISTA RESIDENT Medical Necessity Reason Pt with a Central, PICC or Fol: No Subjective Review of Systems Patient is 54 years old male with past medical history of hypertension, diabetes mellitus type 2, hyperlipidemia, peripheral artery disease, PUD, history of osteomyelitis of the left leg, status post left below-knee amputation due to completion from osteomyelitis and diabetes complication came with a complaint of back pain and dysuria. As per patient patient has been having dysuria when pain for last 4-5 days. Patient reported that he does not usually Pee but lately he has been making some urine and it hurts when he pees. Reported back pain for last 2 days, 09/01, sharp in nature. Also endorsed nausea and vomiting 7 times, no blood. Did not show any, chest pain, shortness of breath, dysarthria or change in vision. Initial lab workup revealed WBC 8.6, hemoglobin 10.3, platelet 174, sodium 129, potassium 4.5, serum creatinine 11.49, GFR is 0 5, POC for 32, lactic acid 1, HGB A1c 8.4, anion gap 11, calcium 6.3, the hydroxybutyrate 0.93. BNP 349.37, CXR no acute cardiopulmonary disease.X-ray lumbar spine and thoracic spine negative for acute fracture. Patient tested negative for COVID-19 and influenza type A and B. UDS positive for cannabinoids. Urinalysis revealed leukocyte esterase 3+, RBC 63, WBC 3302 Patient also had clogged up fistula for hemodialysis. Patient had fistulogram for decannulation on 11/15/2024. PMH-hypertension, diabetes mellitus type 2, hyperlipidemia, peripheral artery disease, PUD, history of osteomyelitis of the left leg, status post left below- knee amputation due to completion from osteomyelitis and diabetes complication PSH- below-knee amputation Allergy- Advil, ibuprofen, morphine, norepinephrine, penicillin Personal History/ Social History- smoker, occasional alcoholic, smokes weed, lives with son at home Patient was seen today at the bedside. Patient reports some back pain Cardiovascular- deny acute chest pain or shortness of breath or cough or palpitation Respiratory- denies cough or short of breath or wheezing Gastrointestinal- denies any rectal bleeding, nausea or vomiting Musculoskeletal--tenderness of the lumbar spine+ Neurological- denies acute dysarthria, dysphagia, change in vision Psychiatry- denies depression or SI or HI Skin- denies acute rash or purpura Patient was seen today for clinical evaluation. Labs and chart reviewed. Patient had dialysis last night. Patient clinically stable. Patient had hyperkalemia with potassium 5.4, emergency treatment was given but patient was not treatment. Patient is discharged to SNF with IV antibiotic. Per administration assistant no dialysis recommended today. Objective vital signs Vital Sign Date Time Temp Pulse Resp B/P (MAP) Pulse Ox O2 Delivery O2 Flow Rate FiO2 11/18/24 17:00 98.4 100 19 122/70 (87) 98 98.4 11/18/24 16:23 Room Air 0.0 11/18/24 16:23 21 Total Intake and Output 11/17/24 11/17/24 11/18/24 15:00 23:00 07:00 Intake Total 220 ml 240 ml 120 ml Balance 220 ml 240 ml 120 ml medications Current Medications Medications Dose Ordered Sig/Marc Route Start Time Stop Time Status Last Admin Dose Admin Paroxetine HCl 20 mg DAILY PO 11/13/24 10:00 11/18/24 09:49 20 MG Amlodipine Besylate 10 mg DAILYPRN PO 11/12/24 17:55 Carvedilol 6.25 mg DAILY PO 11/12/24 22:00 11/18/24 09:56 6.25 MG Polyethylene Glycol 17 gm DAILY PO 11/13/24 10:00 Hold Ondansetron HCl 4 mg Q4HP PRN IV 11/12/24 17:00 11/12/24 18:17 4 MG Acetaminophen 650 mg Q6HP PRN PO 11/12/24 17:00 11/16/24 15:29 650 MG Diagnostic Test (Pha) 1 strip IQ4HR 11/12/24 20:00 11/18/24 12:00 1 STRIP Insulin Human Regular IQ4HR SC 11/12/24 20:00 11/15/24 19:47 2 UNITS Dextrose 50 ml UD PRN IV 11/12/24 17:00 11/16/24 09:05 50 ML Hydromorphone HCl 0.5 mg Q4HPRN PRN IV 11/12/24 17:15 11/18/24 13:46 0.5 MG Gabapentin 300 mg HS PO 11/12/24 22:00 11/17/24 21:59 300 MG Famotidine 10 mg EOD@2200 IV 11/13/24 22:00 11/17/24 21:59 10 MG Ceftriaxone Sodium 50 ml @ 100 mls/hr DAILY@09 IV 11/14/24 09:00 11/18/24 09:48 100 MLS/HR Zirconium Oxide 10 gm DAILY PO 11/15/24 10:00 11/18/24 09:48 10 GM Ergocalciferol 50,000 unit Q7D PO 11/17/24 13:30 11/17/24 17:12 50,000 UNIT Calcium Acetate 667 mg TIDWMEALS PO 11/17/24 18:00 11/18/24 12:00 667 MG Examination General examination- patient awake, conversant, cooperative HEENT- PEERLA, no acute nasal discharge Cardiovascular- S1-S2 audible, rate and rhythm regular, no murmur Respiratory- CTAB, no wheeze or rhonchi Gastrointestinal-nontender, bowel sound+. Nondistended Musculoskeletal-no acute joint swelling or tenderness or redness# Lower extremity- left below-knee amputation Neurological- cranial nerves intact, no acute dysarthria or dysphagia Psychiatry- denies depression or SI or HI Skin- no acute rash or purpura laboratory and microbiology Laboratory Tests 11/18/24 06:11 Test 11/18/24 06:11 Range/Units Serum Glucose 103 # 74-106 mg/dL Microbiology Date/Time Source Procedure Growth Status 11/17/24 03:25 Nose MRSA Screen - Final Complete Problem List/Assessment/Plan Problem List/Assessment/Plan # Uncontrolled diabetes mellitus # UTI # suspected sepsis likely due to UTI # ESRD on dialysis Thursday/Thursday/Thursday # Chronic diastolic congestive heart failure # Anemia likely anemia of chronic disease # Episode of hypoglycemia # uncontrolled hypertension # elevated BNP likely due to CKD # back pain under evaluation- # peripheral artery disease # PUD # hypoglycemia # recurrent hyperkalemia likely due to ESRD-treated emergently # hypotension #Hypocalcemia #Hyponatremia likely dilutional #Substance Abuse- Cannabinoids # status post clot fistula for the dialysis Initial lab workup revealed WBC 8.6, hemoglobin 10.3, platelet 174, sodium 129, potassium 4.5, serum creatinine 11.49, GFR is 0 5, POC for 32, lactic acid 1, HGB A1c 8.4, anion gap 11, calcium 6.3, the hydroxybutyrate 0.93. BNP 349.37, CXR CXR cardiomegaly X-ray lumbar spine and thoracic spine negative for acute fracture UDS positive for cannabinoids. Patient seen by Nephrology, recommendation reviewed and appreciated. Nephrology recommended hemodialysis today. Continue ceftriaxone 1 g IV daily -insulin sliding scale as prescribed -continue famotidine as prescribed -Lovenox 30 mg subcutaneously daily -continue other medication as prescribed Calcium acetate 667 mg p.o. t.i.d. Continue paroxetine 20 mg daily Retract as prescribed Continue renal diet Continue hemodialysis as per schedule Goals of care/advance care planning; FULL CODE; discussed with the patient >15 minutes PUD prophylaxis: Famotidine DVT prophylaxis: Lovenox Plan discussed with Dr. Kerr, nursing staff, patient Total time spent on patient evaluation, chart review, assessment and plan, discussion discussion >30 minutes Plan discussed with: Patient Plan discussed with: Patient, Other (RN) My Orders My Orders Orders - JAMIE BAUTISTA Procedure Category Date Status Time Hydralazine Injection PHA 11/18/24 In Process (Apresoline Inject 06:45 Discharge DISCHARGE 11/18/24 Transmitted 17:18 Dietary Evaluation Review Comments: 1. follow a Renal Standard diet with 2gNa 3K low Phos with CCHO-60 restriction 2. Consider Calcim supplementation Expected Outcomes/Goals: controlled uremic symdrome, controlled DM, slowly healed wounds. Date of Service: Nov 18, 2024 Billing Provider: RYAN KERR MD Common Visit Codes: [id number] INP/OBS CARE(HIGH) JAMIE BAUTISTA Nov 18, 2024 19:18 RYAN KERR MD Nov 19, 2024 10:33
--- NOTE | 2024-11-18 19:43 | DVHPN2 ---
Progress Note - Dictate Date Seen: Nov 18, 2024 Medical Necessity Reason Pt with a Central, PICC or Fol: No Subjective Patient awake and alert this afternoon. Denies shortness of breath patient's nurse at the bedside. vital signs Vital Sign Date Time Temp Pulse Resp B/P (MAP) Pulse Ox O2 Delivery O2 Flow Rate FiO2 11/18/24 17:00 98.4 100 19 122/70 (87) 98 98.4 11/18/24 16:23 Room Air 0.0 11/18/24 16:23 21 Total Intake and Output 11/17/24 11/17/24 11/18/24 15:00 23:00 07:00 Intake Total 220 ml 240 ml 120 ml Balance 220 ml 240 ml 120 ml medications Current Medications Medications Dose Ordered Sig/Marc Route Start Time Stop Time Status Last Admin Dose Admin Paroxetine HCl 20 mg DAILY PO 11/13/24 10:00 11/18/24 09:49 20 MG Amlodipine Besylate 10 mg DAILYPRN PO 11/12/24 17:55 Carvedilol 6.25 mg DAILY PO 11/12/24 22:00 11/18/24 09:56 6.25 MG Polyethylene Glycol 17 gm DAILY PO 11/13/24 10:00 Hold Ondansetron HCl 4 mg Q4HP PRN IV 11/12/24 17:00 11/12/24 18:17 4 MG Acetaminophen 650 mg Q6HP PRN PO 11/12/24 17:00 11/16/24 15:29 650 MG Diagnostic Test (Pha) 1 strip IQ4HR 11/12/24 20:00 11/18/24 12:00 1 STRIP Insulin Human Regular IQ4HR SC 11/12/24 20:00 11/15/24 19:47 2 UNITS Dextrose 50 ml UD PRN IV 11/12/24 17:00 11/16/24 09:05 50 ML Hydromorphone HCl 0.5 mg Q4HPRN PRN IV 11/12/24 17:15 11/18/24 13:46 0.5 MG Gabapentin 300 mg HS PO 11/12/24 22:00 11/17/24 21:59 300 MG Famotidine 10 mg EOD@2200 IV 11/13/24 22:00 11/17/24 21:59 10 MG Ceftriaxone Sodium 50 ml @ 100 mls/hr DAILY@09 IV 11/14/24 09:00 11/18/24 09:48 100 MLS/HR Zirconium Oxide 10 gm DAILY PO 11/15/24 10:00 11/18/24 09:48 10 GM Ergocalciferol 50,000 unit Q7D PO 11/17/24 13:30 11/17/24 17:12 50,000 UNIT Calcium Acetate 667 mg TIDWMEALS PO 11/17/24 18:00 11/18/24 12:00 667 MG objective gen: nad lungs: cta ext: LE amputee laboratory and microbiology Laboratory Tests 11/18/24 06:11 Test 11/18/24 06:11 Range/Units Serum Glucose 103 # 74-106 mg/dL Assessment/Plan End-stage renal disease on hemodialysis Chronic diastolic Congestive heart failure Uncontrolled diabetes mellitus Diabetic ketoacidosis Hypotension Hypocalcemia Vitamin-D deficiency Hyponatremia due to excess H2O Anemia of chronic kidney disease Nonfunctioning AV graft Status post tunneled hemodialysis catheter Recommendations noted plans for possible discharge Patient to resume chronic outpatient dialysis per schedule. Dietary Evaluation Review Comments: 1. follow a Renal Standard diet with 2gNa 3K low Phos with CCHO-60 restriction 2. Consider Calcim supplementation Expected Outcomes/Goals: controlled uremic symdrome, controlled DM, slowly healed wounds. Plan discussed with: Other JASMIN JOHNSON MD Nov 18, 2024 19:43
--- NOTE | 2024-11-23 09:18 | ECG ---
[facility] Test Date: 2024-11-17 Test Time: 10:14:51 Pat Name: JENNIFER GUZMAN Department: Respiratoy Room: 0239T A Gender: M Rn Care Transition: SHAHRIAR : 1970 Requested By: JAMIE BAUTISTA Order Number: [id number] Reading MD: Vikas Stuart Measurements Intervals [place] Rate: 91 P: 45 [place]: 176 QRS: 78 QRSD: 179 T: 39 QT: 443 QTc: 546 Interpretive Statements Sinus rhythm Right bundle branch block No significant change Electronically Signed On 11-23-2024 20:37:41 PST by Vikas Stuart Please click the below link to view image of tracing.
--- NOTE | 2024-11-23 14:01 | ECG ---
[facility] Test Date: 2024-11-16 Test Time: 00:30:23 Pat Name: JENNIFER GUZMAN Department: Respiratoy Room: 0239T A Gender: M Vitamin Manager: : 1970 Requested By: JAMIE BAUTISTA Order Number: [id number] Reading MD: Vikas Stuart Measurements Intervals [place] Rate: 81 P: 61 [place]: 162 QRS: 145 QRSD: 155 T: 35 QT: 447 QTc: 519 Interpretive Statements Sinus rhythm RBBB Electronically Signed On 11-23-2024 18:48:48 PST by Vikas Stuart Please click the below link to view image of tracing.
--- NOTE | 2024-11-23 14:01 | ECG ---
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 Electronically Signed On 11-23-2024 18:49:15 PST by Vikas Stuart Please click the below link to view image of tracing.
--- NOTE | 2024-11-23 14:40 | ECG ---
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
== END 2024-11-18 20:25 | DRG 637 ==
LOC: EDBD 09:12 → ER 09:12 → TELE 16:57 → TELE-EAST 11-13 22:44
PROVIDERS: ADMIT Internal Medicine; ATTEND Internal Medicine
PROC: 5A1D70Z Performance of Urinary Filtration, Intermittent, Less than 6 Hours Per Day (ICD-10-PCS; principal; 2024-11-17)
PROC: 0JH63XZ Insertion of Tunneled Vascular Access Device into Chest Subcutaneous Tissue and Fascia, Percutaneous Approach (ICD-10-PCS; 2024-11-17)
PROC: 02H633Z Insertion of Infusion Device into Right Atrium, Percutaneous Approach (ICD-10-PCS; 2024-11-17)
PROC: B5181ZA Fluoroscopy of Superior Vena Cava using Low Osmolar Contrast, Guidance (ICD-10-PCS; 2024-11-17)
PROC: B548ZZA Ultrasonography of Superior Vena Cava, Guidance (ICD-10-PCS; 2024-11-17)
DX: E11.10 Type 2 diabetes mellitus with ketoacidosis without coma (principal); N18.6 End stage renal disease; E87.1 Hypo-osmolality and hyponatremia; I50.32 Chronic diastolic (congestive) heart failure; N39.0 Urinary tract infection, site not specified; I13.2 Hypertensive heart and chronic kidney disease with heart failure and with stage 5 chronic kidney disease, or end stage renal disease; I82.611 Acute embolism and thrombosis of superficial veins of right upper extremity; Z20.822 Contact with and (suspected) exposure to COVID-19; D63.1 Anemia in chronic kidney disease; E11.22 Type 2 diabetes mellitus with diabetic chronic kidney disease; E83.51 Hypocalcemia; E11.51 Type 2 diabetes mellitus with diabetic peripheral angiopathy without gangrene; I25.10 Atherosclerotic heart disease of native coronary artery without angina pectoris; E11.649 Type 2 diabetes mellitus with hypoglycemia without coma; E78.5 Hyperlipidemia, unspecified; F12.10 Cannabis abuse, uncomplicated; Z99.2 Dependence on renal dialysis; Z88.5 Allergy status to narcotic agent; Z88.0 Allergy status to penicillin; Z88.6 Allergy status to analgesic agent; Z89.512 Acquired absence of left leg below knee; Z87.11 Personal history of peptic ulcer disease; Z83.3 Family history of diabetes mellitus
CPT/HCPCS: 16000; 36415; 36558; 71045; 72070; 72100; 76080; 77001; 80048; 80053; 80074; 80307; 80320; 81001; 82010; 82306; 82962; 83036; 83605; 83735; 83880; 83970; 84100; 84132; 84443; 85025; 85610; 85730; 87040; 87081; 87426; 87804; 90471; 90715; 90935; 93005; 94640; 94644; 99291; G0378; J1815; J2250; J2405; J3490; J7042; Q9967

== ENCOUNTER 2025-08-30 14:43 | Emergency (ER) | payer MEDICARE, MEDICAID ==
[~2025-08-30] VITALS: Ht 177.8 cm; Wt 73.6 kg
[~2025-08-30 14:43] MED LIST changes: -GABA250S7 PO; +LEVO500T91 PO
--- NOTE | 2025-08-30 15:55 | ED.PDOC ---
History of Present Illness HPI Comments 55M presents to the ER in a wheelchair w/ the c/c of buttock pain. Pt reports on an abscess in his buttock popping and was leaking down his legs yesterday. Pt is also complaining of right calf, back and flank pain. Pt notes on having Gabapentin/[place] for the pain w/ to relief.Denies chills, fever, N/V/D, SOB, CP. Denies any other associated symptom's, modifiers, or recent injuries or sick contact at this time. Chief Complaint: Body Pain Time Seen by MD: 15:50 Primary Care Provider: UNKNOWN Reviewed Notes: Nurses Notes, Medications, Allergies Allergies: Coded Allergies: Norepinephrine (Verified Allergy, Severe, 06/15/24) Morphine (Verified Allergy, Intermediate, rash, 11/12/24) Penicillins (Verified Allergy, Mild, 09/04/21) Apple (Verified Allergy, Unknown, 09/08/21) Ibuprofen (Verified Allergy, Unknown, 02/07/18) Home Meds Active Scripts Levofloxacin Hemihydrate (LEVOFLOXACIN) 500 Mg Tab, 1 TAB PO DAILY for 7 Days, #7 TAB 7 Refills Prov:JAMIE BAUTISTA RESIDENT 11/15/24 Tramadol Hcl (Tramadol Hcl) 50 Mg Tab, 50 MG PO Q8HP PRN, #10 TAB Prov:JACKELINE MARTINS PAC 11/11/24 Ibuprofen Micronized (Ibuprofen) 800 Mg Tab, 800 MG PO Q8HP PRN, #20 TAB Prov:JACKELINE MARTINS PAC 11/11/24 Silver Sulfadiazine (Silvadene) 1 % Cre, 1 APPLIC TOP DAILY, #50 GRAMS Prov:JACKELINE MARTINS PAC 11/11/24 Sucralfate (CARAFATE) 1 Gm Tab, 1 GM PO QID for 30 Days, #120 TAB Prov:SUZANNE NASH MD 09/11/21 Pantoprazole Sodium Sesquihydr (Protonix) 40 Mg Tab, 40 MG PO DAILY, #30 TAB Prov:SUZANNE NASH MD 09/11/21 Atorvastatin Calcium (Lipitor) 10 Mg Tab, 1 TAB PO QPM, #30 TAB Prov:SUZANNE NASH MD 09/11/21 Aspirin (HUNTER ASPIRIN EC LOW DOSE) 81 Mg Tab, 1 TAB PO DAILY, #30 TAB Prov:SUZANNE NASH MD 09/11/21 Reported Medications Polynuclear Iron(III)-Oxyhydro (Velphoro) 500 Mg Chw, 1 TAB PO TID for 30 Days, #90 11/15/24 Gabapentin (Gabapentin) 600 Mg Tab, 1 TAB PO BID for 30 Days, #60 11/15/24 Zinc Sulfate (Zinc Sulfate) 220 Mg Cap, 220 MG PO DAILY for 30 Days, MG 03/29/22 Sodium Bicarbonate (Sodium Bicarbonate) 650 Mg Tab, 650 MG PO, TAB 03/29/22 Polyethylene Glycol (MIRALAX 17GM PWD) 17 Gm Pw, 17 GRAMS PO DAILY, #527 GRAMS 03/29/22 Paroxetine (PAXIL TABLET) 20 Mg Tb, 1 TAB PO DAILY, #30 TAB 5 Refills 03/29/22 Omeprazole (Gnp Omeprazole) 20 Mg Tab, 1 TAB PO DAILY, #90 TAB 1 Refill 03/29/22 Melatonin (KP MELATONIN) 3 Mg Tab, 3 MG PO, TAB 03/29/22 Insulin Lispro (Human) (Humalog) 100 Unit/Ml Inj, 100 UNIT SC, INJ 03/29/22 Fenofibrate (FENOFIBRATE) 145 Mg Tab, 1 TAB PO DAILY, #30 TAB 5 Refills 03/29/22 Carvedilol (Carvedilol) 6.25 Mg Tab, 6.25 MG PO DAILY for 30 Days, MG 03/29/22 Ascorbic Acid (Ascorbic Acid) 500 Mg Tab, 500 MG PO DAILY for 30 Days, MG 03/29/22 Albuterol Sulfate (Albuterol Sulfate Hfa) 108 Mcg/Act Aer, 108 MCG IN, AER 03/29/22 Amlodipine Besylate (Amlodipine Besylate) 10 Mg Tab, 1 TAB PO DAILYPRN 09/11/21 Calcium Acetate (Phosphate Bin (Calcium Acetate) 667 Mg Cap, 3 CAP PO TID 09/11/21 Hydrocodone-Acetaminophen (Hydrocodone Bitartrate/AC 10-325 mg) 1 Tab Tab, 1 TAB PO QID, TAB 09/06/21 Information Source: Patient Mode of Arrival: EMS Severity: Moderate Timing: Hours Duration: Since onset, Hours Prehospital treatment: None Past Medical History PAST MEDICAL HISTORY: DM, ESRD, High Lipids, HTN, PAD, PUD Past Medical History (Other): blind Surgical History: BKA (left leg) Family History Family History: Reviewed,noncontributory to illness, Unknown Social History Smoker: Non-Smoker Alcohol: Denies ETOH Use Drugs: Denies Drug Use Lives In: Home Constitutional: reports: others (blind); denies: chills, diaphoresis, fatigue, fever, malaise, sweats, weakness EENTM: denies: blurred vision, double vision, ear bleeding, ear discharge, ear drainage, ear pain, ear ringing, eye pain, eye redness, hearing loss, mouth pain, mouth swelling, nasal discharge, nose bleeding, nose congestion, nose pain, photophobia, tearing, throat pain, throat swelling, voice changes, others Respiratory: denies: cough, hemoptysis, orthopnea, SOB at rest, shortness of breath, SOB with excertion, stridor, wheezing, others Cardiovascular: denies: chest pain, dizzy spells, diaphoresis, Dyspnea on exertion, edema, irregular heart beat, left arm pain, lightheadedness, palpitat ions, PND, syncope, others Gastrointestinal: denies: abdomen distended, abdominal pain, blood streaked bow els, constipated, diarrhea, dysphagia, difficulty swallowing, hematemesis, melena, nausea, poor appetite, poor fluid intake, rectal bleeding, rectal pain, vomiting, others Genitourinary: denies: burning, dysuria, flank pain, frequency, hematuria, incontinence, penile discharge, penile sore, pain, testicle pain, testicle swelling, urgency, others Neurological: denies: dizziness, fainting, headache, left sided numbness, left sided weakness, numbness, paresthesia, pre-existing deficit, right sided numbness, right sided weakness, seizure, speech problems, tingling, tremors, weakness, others Musculoskeletal: reports: others (BKA on right side); denies: back pain, gout, joint pain, joint swelling, muscle pain, muscle stiffness, neck pain Integumetry: denies: bruises, change in color, change in hair/nails, dryness, laceration, lesions, lumps, rash, wounds, others Allergic/Immunocompromised: denies: Difficulty Healing, Frequent Infections, Hives, Itching, others Hematologic/Lymphatic: denies: anemia, blood clots, easy bleeding, easy bruising, swollen glands, others Endocrine: denies: excessive hunger, excessive sweating, excessive thirst, excessive urination, flushing, intolerance to cold, intolerance to heat, unexplained weight gain, unexplained weight loss, others Psychiatric: denies: anxiety, bipolar disorder, depression, hopeless, panic disorder, schizophrenia, sleepless, suicidal, others All Other Systems: Reviewed and Negative Physical Exam General Appearance: No Apparent Distress, Normal HEENT: Normal ENT Inspection, Pharynx Normal, TMs Normal Neck: Full Range of Motion, Non-Tender, Normal, Normal Inspection Respiratory: Chest Non-Tender, Lungs Clear, No Accessory Muscle Use, No Respiratory Distress, Normal Breath Sounds Cardiovascular: No Edema, No JVD, No Murmur, No Gallop, Normal Peripheral Pulses, Regular Rate/Rhythm Breast Exam: Deferred Gastrointestinal: No Organomegaly, Non Tender, No Pulsatile Mass, Normal Bowel Sounds, Soft Genitalia: Deferred Pelvic: Deferred Rectal: Deferred Extremities: No calf tenderness, Normal capillary refill, Normal inspection, Normal range of motion, Non-tender, No pedal edema Musculoskeletal : Apperance: Normal Neurologic: Alert, mill operator 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 Area is tender to palpation. No obvious fluctuance.) Lymphatic: No Adenopathy Was a procedure done? Was a procedure done?: No Differential Dx Considerations may include: Perirectal abscess, cellulitis, anal fissure, hemorrhoid, X-Ray, Labs, Meds, VS Vital Signs Date Time Temp Pulse Resp B/P (MAP) Pulse Ox O2 Delivery O2 Flow Rate FiO2 08/30/25 14:47 100.7 95 18 140/104 96 100.7 X-Ray, Labs, Meds, VS Comment Imaging was reviewed by this provider, there is no obvious pathological or acute disease process. Pending radiology review Labs were reviewed by this provider, no abnormalities Vital signs reviewed by this provider, clinically stable Time of 1ST Reevaluation: 16:20 Reevaluation 1ST: Unchanged Patient Education/Counseling: Diagnosis, Treatment, Prognosis, Need For Follow Up (Follow up in 24 hours for wound recheck) Family Education/Counseling: No Family Present SEPSIS Sepsis Screen Date sepsis recognized/suspect: Aug 30, 2025 Time Sepsis recognized/suspect: 1447 Recent Procedure: No On Antibiotic Therapy: No Respiratory Rate >20: No Heart Rate >90: Yes Temp<36 C (96.8 F) or >38.3 C: Yes SBP <90 or MAP <65 mmHG: No New Acute Mental Status Change: No Is the patient on CPAP, BIPAP,: No Physician Orders Gabapentin Capsule (Neurontin Capsule) (08/30/25 16:00) Vital Signs Date Time Temp Pulse Resp B/P (MAP) Pulse Ox O2 Delivery O2 Flow Rate FiO2 08/30/25 14:47 100.7 95 18 140/104 96 100.7 Departure 1 Departure Time of Disposition: 16:00 Impression: Primary Impression: Perirectal abscess Disposition: HOME / SELF CARE / HOMELESS Condition: Fair e-Prescriptions Clindamycin Hcl (Clindamycin Hcl) 300 Mg Cap 1 CAP PO TID, #30 CAP Prov: LITO JONES 08/30/25 Discharged With: Self Critical Care Note Critical Care Time?: No Stability Stability form required: No Heart Score Heart Score: Heart Score Response (Comments) Value History N/A 0 EKG N/A 0 Age N/A 0 Risk Factors N/A 0 Troponin N/A 0 Total 0 I personally scribed for LITO JONES ([email or web address]) on 08/30/25 at 15:54. Electronically submitted by Mikhail Gr ([email or web address]). LITO JONES Aug 30, 2025 15:54
[2025-08-30] MEDS ORDERED: CLIN1CAP70 PO (16:01)
[2025-08-30 17:11] VITALS: BP 158/32; PULSE 105; RESP 18; TEMP 98
[2025-08-30] MEDS: HYDROcodone-ACET 10/325MG TAB PO ONE (17:12)
[2025-08-30] MEDS: GABAPENTIN 300 MG CAP PO ONE (17:12)
[2025-08-30] MEDS: PARoxetine 20 MG TAB PO ONE (17:12)
[2025-08-30 17:35] VITALS: O2SAT 95
== END 2025-08-30 17:33 | disposition home or self-care (01) ==
LOC: EDBD 14:43 → ER 14:43
DX: L02.31 Cutaneous abscess of buttock (principal); I12.0 Hypertensive chronic kidney disease with stage 5 chronic kidney disease or end stage renal disease; E11.22 Type 2 diabetes mellitus with diabetic chronic kidney disease; N18.6 End stage renal disease; Z88.5 Allergy status to narcotic agent; Z88.0 Allergy status to penicillin; Z87.11 Personal history of peptic ulcer disease; Z88.6 Allergy status to analgesic agent; Z89.512 Acquired absence of left leg below knee; Z91.018 Allergy to other foods; Z79.899 Other long term (current) drug therapy